=== PATIENT | female | born 1955 | race Caucasian/White ===

== ENCOUNTER 2018-02-08 19:28 | Emergency (ER) | payer OTHER ==
--- OUTSIDE RECORDS SUMMARY | 2018-02-08 19:31 | XMS REPORT | Continuity of Care Document ---
:1955 Author Organization Interface Problems Problem Status Onset Date Classification Date Comments Source Reported Medications Medication Details Route Status Patient Ordering Order Source Instructions Provider Date Allergies, Adverse Reactions, Alerts Substance Category Reaction Severity Reaction Status Date Comments Source type Reported Immunizations Immunization Date Given Site Status Last Updated Comments Source Results Order Results Value Reference Date Interpretation Comments Source Name Range Vital Signs Vital Sign Value Date Comments Source Encounters Location Location Encounter Encounter Reason Attending ADM DC Status Source Details Type Number For Provider Date Date Visit Outpatient [id number] JOSUÉ 04/02 [facility] [place] Outpatient [id number] JOSUÉ 05/14 [facility] [place] Outpatient [id number] JOSUÉ 05/14 [facility] [place] Procedures Procedure Code Date Perfomer Comments Source
[2018-02-08 20:12] LABS: Urine Blood TRACE (NEG); Urine Glucose TRACE (NEG); Urine Protein 3+ (NEG); Urine Specific Gravity >1.030 (1.005-1.030); Urine pH 5.5 (5.0-7.0)
[2018-02-08] MEDS ORDERED: KETOROLAC 30 MG/ML INJ ONE (20:53)
[2018-02-08 21:04] LABS: Absolute Lymphocytes (CBC) 1.6 K/uL (0.7-4.9); Absolute Monocytes 0.4 K/uL (0.1-1.3); Absolute Neutrophil 2.2 K/uL (1.8-8.0); Basophils % 0.6 % (0-1.3); Eosinophils % 1.6 % (0-4.4); Hematocrit 38.8 % (36.0-45.0); Lymphocytes % 37.8 % (15.3-44.8); MCH 29.4 pg (27.0-35.0); MCV 85.1 fL (80-100); MPV 9.1 fL (7.6-11.3); Monocytes % 8.9 % (3.3-12.3); RBC Red Blood Cell Count 4.55 M/uL (3.86-4.86)
[2018-02-08 21:29] LABS: Urine Bacteria <20 /HPF (<20); Urine Culture Reflex Order REFLEXED; Urine Mucus 1+ /HPF (NONE SEEN); Urine RBC <5 /HPF (NONE SEEN)
--- NOTE | 2018-02-08 21:54 | RAD REPORT ---
EXAM DESCRIPTION: CT - Stone Protocol - 02/08/2018 9:44 pm CLINICAL HISTORY: Abdominal pain. Urinary frequency since this morning COMPARISON: None. TECHNIQUE: Computed axial tomography of the abdomen pelvis was obtained without oral or IV contrast. Lack of IV and oral contrast limits evaluation of solid organs, bowel, and vessels. Coronal reformat jane images were obtained and reviewed. All CT scans are performed using dose optimization technique as appropriate and may include automated exposure control or mA/KV adjustment according to patient size. FINDINGS: A renal calculus is not seen. An ureteral calculus is not noted. A bladder calculus is not present. The liver, spleen, pancreas and adrenals appear grossly normal There is no evidence of diverticulitis. The appendix appears normal Gallstones are present. The gallbladder wall does not appear thickened A small umbilical hernia is present. IMPRESSION: Negative for a genitourinary calculus Cholelithiasis
[2018-02-08] MEDS ORDERED: CEFTRIAXONE/SWI 1gm 1 GM/10 ML SYR ONE (22:46)
[2018-02-08 23:17] LABS: ALT/SGPT 26 U/L (12-78); AST/SGOT 27 U/L (15-37); Alkaline Phosphatase 110 U/L (45-117); BUN Blood Urea Nitrogen 17 mg/dL (7-18); Bicarbonate 28 mmol/L (21-32); Bilirubin Direct < 0.1 mg/dL (0-0.2); Bilirubin Total 0.2 mg/dL (0.2-1.0); Glucose Level 218 mg/dL (74-106); Potassium 3.6 mmol/L (3.5-5.1); Sodium Level 144 mmol/L (136-145)
[2018-02-08 23:18] LABS: Albumin 3.4 g/dL (3.4-5.0); Amylase Level 39 U/L (25-115); Lipase 129 U/L (73-393); Protein, Total 6.9 g/dL (6.4-8.2)
--- NOTE | 2018-02-08 23:33 | ER ---
Nurse's Notes [facility] Name: Rachel Camacho Age: 63 yrs Sex: Female : 1955 Arrival Date: 02/08/2018 Time: 19:29 Bed 14 Private MD: Willie Voss Diagnosis: Urinary tract infection, site not specified Presentation: 02/08 19:41 Presenting complaint: Patient states: that she is having left lower back pain that bb started this am. Urinary frequency but no burning. Transition of care: patient was not received from another setting of care. Onset of symptoms was February 08, 2018. Risk Assessment: Do you want to hurt yourself or someone else? Patient reports no desire to harm self or others. Initial Sepsis Screen: Does the patient meet any 2 criteria? No. Patient's initial sepsis screen is negative. Does the patient have a suspected source of infection? No. Patient's initial sepsis screen is negative. Care prior to arrival: None. 19:41 Method Of Arrival: Ambulatory bb 19:41 Acuity: LUDY 3 bb Historical: - Allergies: 19:44 Codeine; bb 19:44 Hydrocodone-Acetaminophen; bb 19:44 Theophylline; bb 19:44 Tylenol-Codeine #3; bb - Home Meds: 19:44 atvorstatin 40mg at bedtime [Active]; fenofibrate 48 mg Oral 1 tab once daily [Active]; bb Lantus 30 units Sub-Q twice a day [Active]; lisinopril 10 mg Oral tab 1 tab once daily [Active]; Nexium 40 mg Oral cpDR 1 cap 2 times per day [Active]; Novolog 100 unit/mL Sub-Q soln as needed [Active]; aspirin 81 mg Oral chew 1 tab once daily [Active]; - PMHx: 19:44 Anxiety; GERD; Diabetes - IDDM; Hypertension; High Cholesterol; bb - PSHx: 19:44 left leg; Tubal ligation; bb - Immunization history:: Last tetanus immunization: up to date. - Social history:: Smoking status: Patient/guardian denies using tobacco, the patient reports quitting approximately 7 years ago. - Ebola Screening: : Patient negative for fever greater than or equal to 101.5 degrees Fahrenheit, and additional compatible Ebola Virus Disease symptoms Patient denies exposure to infectious person Patient denies travel to an Ebola-affected area in the 21 days before illness onset. Screenin:09 Abuse screen: Denies threats or abuse. Denies injuries from another. Nutritional mg2 screening: No deficits noted. Tuberculosis screening: No symptoms or risk factors identified. Fall Risk None identified. Assessment: 20:07 General: Appears uncomfortable, Behavior is calm, cooperative. Pain: Complains of pain mg2 in lower back Pain does not radiate. Pain currently is 10 out of 10 on a pain scale. Quality of pain is described as aching, Pain began today morning Is intermittent, Alleviated by. Neuro: Level of Consciousness is awake, alert, obeys commands, Oriented to person, place, time. Cardiovascular: Capillary refill < 3 seconds Patient's skin is warm and dry. Respiratory: Airway is patent Respiratory effort is even, unlabored. GI: No signs and/or symptoms were reported involving the gastrointestinal system. : Reports pain in lower back. EENT: No signs and/or symptoms were reported regarding the EENT system. Derm: No signs and/or symptoms reported regarding the dermatologic system. Derm: Skin is intact, Skin is pink, warm \T\ dry. normal. Musculoskeletal: No signs and/or symptoms reported regarding the musculoskeletal system. 22:47 Reassessment: Patient appears in no apparent distress at this time. Patient and/or mg2 family updated on plan of care and expected duration. Pain level reassessed. Patient is alert, oriented x 3, equal unlabored respirations, skin warm/dry/pink. Vital Signs: 19:44 BP 156 / 80; Pulse 93; Resp 18; Temp 97.9(O); Pulse Ox 95% on R/A; Weight 108.86 kg; bb Height 5 ft. 8 in. (172.72 cm); Pain 10/10; 20:56 BP 143 / 65; Pulse 90; Resp 18; Pulse Ox 100% ; Pain 8/10; mg2 22:13 BP 143 / 72; Pulse 73; Resp 18; Pulse Ox 100% on R/A; Pain 0/10; mg2 23:19 BP 139 / 67; Pulse 76; Resp 18; Pulse Ox 97% on R/A; Pain 0/10; mg2 19:44 Body Mass Index 36.49 (108.86 kg, 172.72 cm) bb ED Course: 19:29 Patient arrived in ED. ds1 19:30 Shanika, Willie, MD is Private Physician. ds1 19:42 Triage completed. bb 19:44 Arm band placed on Patient placed in an exam room, on a stretcher. bb 19:52 Morris Bañuelos MD is Attending Physician. tw4 19:57 Dwayne Sheth, JOCELINE is Primary Nurse. mg2 20:09 Patient has correct armband on for positive identification. mg2 20:43 No provider procedures requiring assistance completed. Inserted saline lock: 20 gauge mg2 in right forearm, using aseptic technique. Blood collected. 21:[address] nj 21:43 CT completed. Patient tolerated procedure well. Patient moved back from CT. nj 21:43 CT Stone Protocol In Process Unspecified. EDMS 23:31 Willie Voss MD is Referral Physician. tw4 02/09 00:04 IV discontinued, intact, bleeding controlled, No redness/swelling at site. Pressure mg2 dressing applied. Administered Medications: 02/08 20:55 Drug: TORadol 30 mg Route: IVP; Site: right forearm; mg2 22:27 Follow up: Response: No adverse reaction; Pain is decreased mg2 22:47 Drug: Rocephin - (cefTRIAXone) 1 grams Route: IVPB; Infused Over: 30 mins; Site: right mg2 forearm; Outcome: 23:32 Discharge ordered by . tw4 02/09 00:04 Discharged to home ambulatory. mg2 Condition: stable Discharge instructions given to patient, Instructed on discharge instructions, follow up and referral plans. medication usage, Demonstrated understanding of instructions, follow-up care, medications, Prescriptions given X 1. 00:05 Patient left the ED. mg2 Signatures: Dispatcher [facility] GastonGregoryi ds1 Rachel Talbot, RN RN Matti Hedrick Terrence, MD MD tw4 Dwayne Sheth, RN RN mg2 Corrections: (The following items were deleted from the chart) 02/08 22:27 22:13 Pulse 73bpm; Resp 18bpm; Pulse Ox 100% RA; Pain 0/10; mg2 mg2
--- NOTE | 2018-02-08 23:33 | EDPHYS ---
Physician Documentation [facility] Name: Rachel Camacho Age: 63 yrs Sex: Female : 1955 Arrival Date: 02/08/2018 Time: 19:29 Bed 14 Private MD: Willie Voss ED Physician Morris Bañuelos HPI: 02/08 21:29 This 63 yrs old Female presents to ER via Ambulatory with complaints of tw4 Kidney Pain. 21:29 The patient complains of pain in the left low back. The pain does not radiate. Onset: tw4 The symptoms/episode began/occurred yesterday. Modifying factors: The symptoms are alleviated by nothing. the symptoms are aggravated by movement. Associated signs and symptoms: The patient has no apparent associated signs or symptoms. Severity of pain: At its worst the pain was moderate in the emergency department the pain is unchanged. The patient has not experienced similar symptoms in the past. Historical: - Allergies: 19:44 Codeine; bb 19:44 Hydrocodone-Acetaminophen; bb 19:44 Theophylline; bb 19:44 Tylenol-Codeine #3; bb - Home Meds: 19:44 atvorstatin 40mg at bedtime [Active]; fenofibrate 48 mg Oral 1 tab once daily [Active]; bb Lantus 30 units Sub-Q twice a day [Active]; lisinopril 10 mg Oral tab 1 tab once daily [Active]; Nexium 40 mg Oral cpDR 1 cap 2 times per day [Active]; Novolog 100 unit/mL Sub-Q soln as needed [Active]; aspirin 81 mg Oral chew 1 tab once daily [Active]; - PMHx: 19:44 Anxiety; GERD; Diabetes - IDDM; Hypertension; High Cholesterol; bb - PSHx: 19:44 left leg; Tubal ligation; bb - Immunization history:: Last tetanus immunization: up to date. - Social history:: Smoking status: Patient/guardian denies using tobacco, the patient reports quitting approximately 7 years ago. - Ebola Screening: : Patient negative for fever greater than or equal to 101.5 degrees Fahrenheit, and additional compatible Ebola Virus Disease symptoms Patient denies exposure to infectious person Patient denies travel to an Ebola-affected area in the 21 days before illness onset. ROS: 21:31 Constitutional: Negative for fever, chills, and weight loss. tw4 21:31 : Positive for flank pain, Negative for urinary symptoms, urinary frequency, burning with urination, difficulty urinating, bladder incontinence, foul smelling urine, vaginal bleeding, vaginal discharge, vaginal itching. Exam: 21:31 Constitutional: This is a well developed, well nourished patient who is awake, alert, tw4 and in no acute distress. Head/Face: Normocephalic, atraumatic. Chest/axilla: Normal chest wall appearance and motion. Nontender with no deformity. No lesions are appreciated. Cardiovascular: Regular rate and rhythm with a normal S1 and S2. No gallops, murmurs, or rubs. Normal PMI, no JVD. No pulse deficits. Respiratory: Lungs have equal breath sounds bilaterally, clear to auscultation and percussion. No rales, rhonchi or wheezes noted. No increased work of breathing, no retractions or nasal flaring. Abdomen/GI: Soft, non-tender, with normal bowel sounds. No distension or tympany. No guarding or rebound. No evidence of tenderness throughout. 21:31 Back: pain, that is moderate, ROM is normal, normal spinal alignment noted, CVA tenderness, is noted on the left, vertebral tenderness. Vital Signs: 19:44 BP 156 / 80; Pulse 93; Resp 18; Temp 97.9(O); Pulse Ox 95% on R/A; Weight 108.86 kg; bb Height 5 ft. 8 in. (172.72 cm); Pain 10/10; 20:56 BP 143 / 65; Pulse 90; Resp 18; Pulse Ox 100% ; Pain 8/10; mg2 22:13 BP 143 / 72; Pulse 73; Resp 18; Pulse Ox 100% on R/A; Pain 0/10; mg2 23:19 BP 139 / 67; Pulse 76; Resp 18; Pulse Ox 97% on R/A; Pain 0/10; mg2 19:44 Body Mass Index 36.49 (108.86 kg, 172.72 cm) bb MDM: 19:52 Patient medically screened. tw4 21:31 Differential diagnosis: nephrolithiasis, pyelonephritis, UTI. Data reviewed: vital tw4 signs, nurses notes. Counseling: I had a detailed discussion with the patient and/or guardian regarding: the historical points, exam findings, and any diagnostic results supporting the discharge/admit diagnosis, lab results. 23:31 Special discussion: I discussed with the patient/guardian in detail that at this point tw4 there is no indication for admission to the hospital. It is understood, however, that if the symptoms persist or worsen the patient needs to return immediately for re-evaluation. 02/08 20:08 Order name: Urine Dipstick--Ancillary (enter results); Complete Time: 20:29 in 02/08 22:38 Interpretation: Normal except: USPGR >1.030; UPROT 3+; UBLD TRACE; UESTR TRACE. [facility] 02/08 20:29 Order name: Amylase, Serum [facility] 02/08 20:29 Order name: Basic Metabolic Panel [facility] 02/08 20:29 Order name: CBC with Diff; Complete Time: 21:08 [facility] 02/08 22:38 Interpretation: Within normal limits. [facility] 02/08 20:29 Order name: Creatinine for Radiology; Complete Time: 22:37 [facility] 02/08 22:38 Interpretation: Within normal limits: CRE 0.60; GFR > 60. [facility] 02/08 20:29 Order name: Hepatic Function [facility] 02/08 20:29 Order name: Lipase [facility] 02/08 20:29 Order name: Urine Microscopic Only; Complete Time: 22:37 [facility] 02/08 22:38 Interpretation: Normal except: SQEPI 5-10; UWBC 10-20. [facility] 02/08 20:29 Order name: IV Saline Lock; Complete Time: 20:44 [facility] 02/08 20:29 Order name: Labs collected and sent; Complete Time: 20:44 [facility] 02/08 21:09 Order name: CT Stone Protocol; Complete Time: 22:37 [facility] 02/08 21:31 Order name: Urine Culture [facility] 02/08 20:29 Order name: Urine Dipstick-Ancillary (obtain specimen); Complete Time: 20:46 tw4 Administered Medications: 20:55 Drug: TORadol 30 mg Route: IVP; Site: right forearm; mg2 22:27 Follow up: Response: No adverse reaction; Pain is decreased mg2 22:47 Drug: Rocephin - (cefTRIAXone) 1 grams Route: IVPB; Infused Over: 30 mins; Site: right mg2 forearm; Disposition: 02/08/18 23:32 Discharged to Home. Impression: Urinary tract infection, site not specified. - Condition is Stable. - Discharge Instructions: Urinary Tract Infection, Urinary Tract Infection, [id number]. - Prescriptions for Macrobid 100 mg Oral Capsule - take 1 capsule by ORAL route every 12 hours for 10 days; 20 capsule. - Medication Reconciliation Form, Thank You Letter, Antibiotic Education, Prescription Opioid Use form. - Follow up: Willie Voss MD; When: As needed; Reason: Recheck today's complaints, Re-evaluation by your physician. Follow up: Private Physician; When: As needed; Reason: Recheck today's complaints, Re-evaluation by your physician. - Problem is new. - Symptoms have improved. Signatures: Dispatcher [employer] Rachel Austin, RN RN Morris Huston MD MD tw4 Dwayne Sheth RN RN mg2 Corrections: (The following items were deleted from the chart) 02/09 00:05 02/08 23:32 02/08/2018 23:32 Discharged to Home. Impression: Urinary tract infection, mg2 site not specified. Condition is Stable. Forms are Medication Reconciliation Form, Thank You Letter, Antibiotic Education, Prescription Opioid Use. Follow up: Willie Voss; When: As needed; Reason: Recheck today's complaints, Re-evaluation by your physician. Follow up: Private Physician; When: As needed; Reason: Recheck today's complaints, Re-evaluation by your physician. Problem is new. Symptoms have improved. tw4
== END 2018-02-09 00:05 | disposition home or self-care (01) ==
LOC: ER 19:28
DX: N39.0 Urinary tract infection, site not specified (principal); I10 Essential (primary) hypertension; E11.9 Type 2 diabetes mellitus without complications; F41.9 Anxiety disorder, unspecified; Z79.4 Long term (current) use of insulin; Z88.5 Allergy status to narcotic agent; Z88.6 Allergy status to analgesic agent; Z88.8 Allergy status to other drugs, medicaments and biological substances
CPT/HCPCS: 36415; 74176; 76377; 80048; 80076; 81003; 81015; 82150; 83690; 85025; 87086; 87088; 96374; 96375; 99284; J0696

== ENCOUNTER 2018-04-11 05:16 | Emergency (ER) | payer OTHER ==
--- OUTSIDE RECORDS SUMMARY | 2018-04-11 05:18 | XMS REPORT | Continuity of Care Document ---
[...] Number For Provider Date Date Visit Outpatient [id number] JOSUÉ 04/02 [facility] Outpatient [id number] JOSUÉ 05/14 [facility] Outpatient [id number] JOSUÉ 05/14 [facility] Procedures Procedure Code Date Perfomer Comments Source
[2018-04-11] MEDS ORDERED: ONDANSETRON 4 MG/2 ML VIAL ONE ×2 (05:53→12:34)
[2018-04-11 05:55] LABS: Absolute Lymphocytes (CBC) 0.5 K/uL (0.7-4.9); Absolute Monocytes 0.3 K/uL (0.1-1.3); Absolute Neutrophil 7.1 K/uL (1.8-8.0); Basophils % 0.3 % (0-1.3); Eosinophils % 0.1 % (0-4.4); Hematocrit 40.4 % (36.0-45.0); Lymphocytes % 6.7 % (15.3-44.8); MCH 28.8 pg (27.0-35.0); MCV 85.6 fL (80-100); MPV 9.2 fL (7.6-11.3); Monocytes % 4.4 % (3.3-12.3); RBC Red Blood Cell Count 4.72 M/uL (3.86-4.86)
[2018-04-11 05:59] LABS: Protime INR 0.97
[2018-04-11] MEDS ORDERED: ASPIRIN 81 MG CHEWABLE TABLET ONE (06:04)
[2018-04-11] MEDS ORDERED: NITROGLYCERIN 0.4 MG/TAB SL ONE (06:05)
[2018-04-11 06:26] LABS: ALT/SGPT 27 U/L (12-78); AST/SGOT 24 U/L (15-37); Albumin 3.9 g/dL (3.4-5.0); Alkaline Phosphatase 86 U/L (45-117); BUN Blood Urea Nitrogen 19 mg/dL (7-18); Bicarbonate 27 mmol/L (21-32); Bilirubin Direct < 0.1 mg/dL (0-0.2); Bilirubin Total 0.4 mg/dL (0.2-1.0); CKMB Creatine Kinase MB 5.1 ng/mL (0.3-3.6); Creatine Phosphokinase 176 U/L (26-192); Glucose Level 239 mg/dL (74-106); Magnesium 1.9 mg/dL (1.8-2.4); NT PRO-BNP 36 pg/mL (<125); Potassium 3.9 mmol/L (3.5-5.1); Protein, Total 7.8 g/dL (6.4-8.2); Sodium Level 138 mmol/L (136-145); Troponin (Emerg Dept Use Only) < 0.02 ng/mL (0.0-0.045)
[2018-04-11 06:27] LABS: Blood Morphology Comment NOT SEEN (NOT SEEN); Platelet Estimate ADEQ
[2018-04-11] MEDS ORDERED: PROMETHAZINE 25 MG/ML VIAL ONE ×2 (06:40→07:29)
[2018-04-11] MEDS ORDERED: KETOROLAC 30 MG/ML INJ ONE (06:40)
[2018-04-11] MEDS ORDERED: NA CHLORIDE 0.9% 1,000 ML ONE (06:40)
--- NOTE | 2018-04-11 07:34 | RAD REPORT ---
EXAM DESCRIPTION: CT - Abdomen Pelvis W Contrast - 04/11/2018 7:19 am CLINICAL HISTORY: EPIGASTRIC PAIN abdominal pain COMPARISON: Stone Protocol dated 02/08/2018 TECHNIQUE: Computed axial tomography of the abdomen pelvis was obtained. 100 cc Isovue-300 was admin istered intravenously. Oral contrast was not requested which limits evaluation of bowel. All CT scans are performed using dose optimization technique as appropriate and may include automated exposure control or mA/KV adjustment according to patient size. FINDINGS: Small hepatic cyst is present. Multiple gallstones are present. The gallbladder is mildly distended. The wall probably is not thicke melquiades. Spleen, pancreas, adrenal and kidneys appear unremarkable. There is no evidence of diverticulitis. The appendix is not clearly seen. Small umbilical hernia is present. IMPRESSION: Cholelithiasis with mild gallbladder distention
--- NOTE | 2018-04-11 08:36 | EKG ---
Test Date: 2018-04-11 Test Time: 05:25:41 Shank Sorter: BRANDON MEASUREMENT RESULTS: Intervals: Rate: 68 HI: 162 QRSD: 86 QT: 416 QTc: 442 [place]: P: 49 HI: 162 QRS: 46 T: 55 INTERPRETIVE STATEMENTS: Normal sinus rhythm Normal ECG Compared to ECG 09/18/2016 07:32:19 No significant changes Electronically Signed On 04-11-18 08:36:15 CDT by Dylon Law
--- NOTE | 2018-04-11 09:40 | RAD REPORT ---
EXAM DESCRIPTION: Gerardt Single View04/11/2018 5:47 am CLINICAL HISTORY: CHEST PAIN COMPARISON: Chest Pa And Lat (2 Views) dated 09/18/2016; delete FINDINGS: The lungs appear clear of acute infiltrate. The heart is normal size IMPRESSION: No acute abnormalities displayed
--- NOTE | 2018-04-11 10:23 | RAD REPORT ---
EXAM DESCRIPTION: US - Abdomen Exam Limited - 04/11/2018 8:40 am CLINICAL HISTORY: EPIGASTRIC PAIN COMPARISON: None. FINDINGS: Gallstones are present. The gallbladder wall is mildly thickened measuring 4 millimeters. The common bile duct 7 millimeter . IMPRESSION: Cholelithiasis. Mild thickened gallbladder wall may indicate cholecystitis Mild dilatation of the common bile duct.
--- NOTE | 2018-04-11 10:33 | ER ---
Nurse's Notes [facility] Name: Rachel Camacho Age: 63 yrs Sex: Female : 1955 Arrival Date: 04/11/2018 Time: 05:17 Bed 14 Private MD: Willie Voss Diagnosis: Cholecystitis Presentation: 04/11 05:36 Presenting complaint: Patient states: Pt complaining of stomach pain that began at 10 ea PM, pt reports the pain gradually started moving up to her epigastric area. Reports she has been having vomiting and Diarrhea. Pt report the epigastric pain radiates to the center of her chest. Transition of care: patient was not received from another setting of care. Onset of symptoms was April 11, 2018. Risk Assessment: Do you want to hurt yourself or someone else? Patient reports no desire to harm self or others. Initial Sepsis Screen: Does the patient meet any 2 criteria? No. Patient's initial sepsis screen is negative. Does the patient have a suspected source of infection? No. Patient's initial sepsis screen is negative. Care prior to arrival: Medication(s) given: Pepto-Bismol at 11 PM. 05:36 Method Of Arrival: Ambulatory ea 05:36 Acuity: LUDY 3 ea Triage Assessment: 05:41 General: Appears uncomfortable, Behavior is calm, cooperative, appropriate for age. ea Pain: Complains of pain in epigastric area Pain radiates to chest Pain currently is 7 out of 10 on a pain scale. Quality of pain is described as burning, aching, Pain began suddenly, Is continuous. EENT: No signs and/or symptoms were reported regarding the EENT system. Neuro: Level of Consciousness is awake, alert, obeys commands, Oriented to person, place, time, situation. Cardiovascular: Patient's skin is warm and dry. Respiratory: Airway is patent Respiratory effort is even, unlabored, Respiratory pattern is regular, symmetrical. GI: Abdomen is non-distended, Bowel sounds present X 4 quads. GI: Reports diarrhea, vomiting. : No signs and/or symptoms were reported regarding the genitourinary system. Derm: Skin is pink, warm \\T\\ dry. Historical: - Allergies: 05:40 Codeine; ea 05:40 Theophylline; ea 05:40 Tylenol-Codeine #3; ea 05:40 Hydrocodone-Acetaminophen; ea - Home Meds: 05:40 fenofibrate 48 mg Oral 1 tab once daily [Active]; atvorstatin 40mg at bedtime [Active]; ea Lantus 30 units Sub-Q twice a day [Active]; aspirin 81 mg Oral chew 1 tab once daily [Active]; lisinopril 10 mg Oral tab 1 tab once daily [Active]; Nexium 40 mg Oral cpDR 1 cap 2 times per day [Active]; Novolog 100 unit/mL Sub-Q soln as needed [Active]; - PMHx: 05:40 Anxiety; Diabetes - IDDM; GERD; High Cholesterol; Hypertension; ea - PSHx: 05:40 left leg; Tubal ligation; ea - Immunization history:: Adult Immunizations up to date. - Social history:: Smoking status: Patient/guardian denies using tobacco, the patient reports quitting approximately 8 years ago. - Ebola Screening: : No symptoms or risks identified at this time. Screenin:40 Abuse screen: Denies threats or abuse. Nutritional screening: No deficits noted. ea Tuberculosis screening: No symptoms or risk factors identified. Fall Risk None identified. Assessment: 05:44 Reassessment: see triage assessment. ea 06:44 Reassessment: Patient and/or family updated on plan of care and expected duration. Pain ea level reassessed. Patient is alert, oriented x 3, equal unlabored respirations, skin warm/dry/pink. Pt reported nausea and vomiting x 1. Provider notified, medication order obtained, medication administered, pt tolerated well. 07:00 General: Appears in no apparent distress. uncomfortable, Behavior is calm, cooperative, hj appropriate for age. Pain: Complains of pain in abdomen. Neuro: Level of Consciousness is awake, alert, obeys commands, Oriented to person, place, time, situation, Appropriate for age. Cardiovascular: Capillary refill < 3 seconds Patient's skin is warm and dry. Respiratory: Airway is patent Respiratory effort is even, unlabored, Respiratory pattern is regular, symmetrical. GI: Abdomen is non-distended, obese, Pt is actively vomiting. : No signs and/or symptoms were reported regarding the genitourinary system. EENT: No signs and/or symptoms were reported regarding the EENT system. Derm: No signs and/or symptoms reported regarding the dermatologic system. Musculoskeletal: No signs and/or symptoms reported regarding the musculoskeletal system. 08:00 Reassessment: Patient and/or family updated on plan of care and expected duration. Pain hj level reassessed. Patient is alert, oriented x 3, equal unlabored respirations, skin warm/dry/pink. awaiting results and POC:. 09:00 Reassessment: Patient and/or family updated on plan of care and expected duration. Pain hj level reassessed. Patient is alert, oriented x 3, equal unlabored respirations, skin warm/dry/pink. " istill hurt". provider informed;. 10:46 Reassessment: Patient and/or family updated on plan of care and expected duration. Pain hj level reassessed. Patient is alert, oriented x 3, equal unlabored respirations, skin warm/dry/pink. possible admit; provider in room for POC:. 11:04 Reassessment: pt states" i want to go to [place] if i need to be transferred, nothing hj farther than that". provider informed;. 11:25 Reassessment: pt changed her mind, states" okay, you can transfer me to the [facility]". 11:48 Reassessment: awaiting transfer papers;. hj 12:00 Reassessment: report given to Zhanna Salazar RN; to room 2134;. Vital Signs: 05:35 BP 153 / 86; Pulse 76; Resp 18; Temp 97.7(O); Pulse Ox 98% on R/A; Weight 108.86 kg; ea Height 5 ft. 8 in. (172.72 cm); Pain 7/10; 06:48 BP 149 / 77; Pulse 70; Resp 18; Pulse Ox 97% on R/A; Pain 7/10; ea 07:27 BP 143 / 77; Pulse 95; Resp 18; Temp 98.1(TE); Pulse Ox 99% on R/A; Pain 8/10; hj 08:30 BP 142 / 75; Pulse 94; Resp 18; Pulse Ox 98% on 2 lpm NC; hj 09:30 BP 140 / 76; Pulse 85; Resp 18; Pulse Ox 100% on 2 lpm NC; hj 10:47 BP 140 / 72; Pulse 89; Resp 18; Pulse Ox 100% on 2 lpm NC; hj 11:48 BP 132 / 61; Pulse 80; Resp 18; Pulse Ox 99% on R/A; hj 05:35 Body Mass Index 36.49 (108.86 kg, 172.72 cm) ea ED Course: 05:17 Patient arrived in ED. ds1 05:17 Willie Voss MD is Private Physician. ds1 05:18 Josefa Mitchell, JOCELINE is Primary Nurse. ea 05:35 Patient has correct armband on for positive identification. Bed in low position. Call ea light in reach. Side rails up X2. 05:35 Patient placed in an exam room, on a stretcher, on pulse oximetry. ea 05:38 Triage completed. ea 05:38 Inserted saline lock: 20 gauge in right antecubital area, using aseptic technique. ea Blood collected. 05:42 X-ray completed. Portable x-ray completed in exam room. Patient tolerated procedure kp1 well. 05:47 XRAY Chest (1 view) In Process Unspecified. EDMS 06:02 German Andino NP is PHCP. pm1 06:02 Morris Bañuelos MD is Attending Physician. pm1 07:01 Report received from JOCELINE Rivero. hj 07:[address] kw1 07:[address] kw1 07:11 CT completed. Patient moved back from CT. cw1 07:19 CT Abd/Pelvis - W/Contrast In Process Unspecified. EDMS 08:38 Ultrasound completed. Patient tolerated well. sg3 08:40 US Abdomen Limited In Process Unspecified. EDMS 10:32 Mavis Kauffman MD is Hospitalizing Provider. pm1 11:17 initiated a transfer with Garrick at the [facility] transfer Center. eb 11:27 connected the GI doctor from [facility] with Thu SINGH for patient transfer eb consultation. 11:41 administrative approval given by Risa Elizabeth/ Dr. Holland has accepted the eb patient in transfer/ patient going to bed 2018/ Report to be called to [phone]. 12:24 No provider procedures requiring assistance completed. Patient transferred, IV remains hj in place. intact. Administered Medications: 05:53 Drug: Zofran 4 mg Route: IVP; Site: right antecubital; ea 06:43 Follow up: Response: No adverse reaction; Nausea unchanged ea 06:04 Drug: Aspirin Chewable Tablet 324 mg Route: PO; ea 06:43 Follow up: Response: No adverse reaction ea 06:04 Not Given (Patient Refused): Nitroglycerin 0.4 mg Sublingual once ea 06:42 Drug: TORadol 30 mg Route: IVP; Site: right antecubital; ea 07:00 Follow up: Response: No adverse reaction; Pain is decreased ea 06:42 Drug: Phenergan 12.5 mg Route: IVP; Site: right antecubital; ea 07:00 Follow up: Response: No adverse reaction; Nausea is decreased ea 06:42 Drug: NS 0.9% 1000 ml Route: IV; Rate: 1000 ml; Site: right antecubital; ea 08:30 Follow up: IV Status: Completed infusion; IV Intake: 1000ml hj 07:27 Drug: Phenergan 12.5 mg Route: IVP; Site: right antecubital; hj 07:48 Follow up: Response: No adverse reaction; Nausea is decreased hj 11:36 Drug: Zosyn 3.375 grams Route: IVPB; Infused Over: 60 mins; Site: right antecubital; hj 11:51 Follow up: IV Status: Completed infusion hj 12:28 Drug: morphine 2 mg Route: IVP; Site: right antecubital; hj 12:33 Follow up: Response: No adverse reaction hj 12:28 Drug: Zofran 4 mg Route: IVP; Site: right antecubital; hj 12:33 Follow up: Response: No adverse reaction; Nausea is decreased hj Intake: 08:30 IV: 1000ml; Total: 1000ml. hj Outcome: 10:33 Decision to Hospitalize by Provider. pm1 11:37 ER care complete, transfer ordered by MD. pm1 12:24 Transferred by ground EMS to [facility], Transfer form completed. hj X-rays sent w/ patient. 12:24 Condition: stable 12:24 Instructed on the need for transfer, Demonstrated understanding of instructions. 12:34 Patient left the ED. hj Signatures: Dispatcher [employer] EDKS Yakelin Gaston dsEsther Bishop cw1 Rod Jacobsen RN RN hj Marinas, Patrick, SAMANTHA EXTRACTOR OPERATOR pm1 Mitali Dubois kp1 Mitchell, JosefaJOCELINE RN, ea, Kimberly kw1 Gloria Lebron sg3 Valorie Mondragon Corrections: (The following items were deleted from the chart) 07:03 07:01 Report received from JOCELINE Velasco ea hj
--- NOTE | 2018-04-11 10:33 | EDPHYS ---
Physician Documentation [facility] Name: Rachel Camacho Age: 63 yrs Sex: Female : 1955 Arrival Date: 04/11/2018 Time: 05:17 Bed 14 Private MD: Willie Voss ED Physician Morris Bañuelos HPI: 04/11 06:17 This 63 yrs old Female presents to ER via Ambulatory with complaints of pm1 Epigastric Pain, Chest Pain. 06:17 The patient presents with abdominal pain in the upper abdomen. Onset: The pm1 symptoms/episode began/occurred last night, at 22:00. The symptoms radiate to left breast. Associated signs and symptoms: Pertinent positives: nausea, vomiting, and diarrhea, Pertinent negatives: dysuria, fever, shortness of breath. The symptoms are described as achy. Modifying factors: The symptoms are alleviated by Positioning. the symptoms are aggravated by nothing. Severity of pain: in the emergency department the pain is actually worse. The patient has not experienced similar symptoms in the past. The patient has not recently seen a physician, the patient's primary care provider is Dr. Worrell. Historical: - Allergies: 05:40 Codeine; ea 05:40 Theophylline; ea 05:40 Tylenol-Codeine #3; ea 05:40 Hydrocodone-Acetaminophen; ea - Home Meds: 05:40 fenofibrate 48 mg Oral 1 tab once daily [Active]; atvorstatin 40mg at bedtime [Active]; ea Lantus 30 units Sub-Q twice a day [Active]; aspirin 81 mg Oral chew 1 tab once daily [Active]; lisinopril 10 mg Oral tab 1 tab once daily [Active]; Nexium 40 mg Oral cpDR 1 cap 2 times per day [Active]; Novolog 100 unit/mL Sub-Q soln as needed [Active]; - PMHx: 05:40 Anxiety; Diabetes - IDDM; GERD; High Cholesterol; Hypertension; ea - PSHx: 05:40 left leg; Tubal ligation; ea - Immunization history:: Adult Immunizations up to date. - Social history:: Smoking status: Patient/guardian denies using tobacco, the patient reports quitting approximately 8 years ago. - Ebola Screening: : No symptoms or risks identified at this time. ROS: 06:20 Constitutional: Negative for fever, chills, and weight loss, Eyes: Negative for injury, pm1 pain, redness, and discharge, ENT: Negative for injury, pain, and discharge, Neck: Negative for injury, pain, and swelling, Cardiovascular: Negative for chest pain, palpitations, and edema, Respiratory: Negative for shortness of breath, cough, wheezing, and pleuritic chest pain. 06:20 Back: Negative for injury and pain, : Negative for injury, bleeding, discharge, and swelling, MS/Extremity: Negative for injury and deformity, Skin: Negative for injury, rash, and discoloration, Neuro: Negative for headache, weakness, numbness, tingling, and seizure. 06:20 Abdomen/GI: Positive for abdominal pain, nausea, vomiting, and diarrhea, of the epigastric area, right upper quadrant and left upper quadrant, Negative for hematemesis, black/tarry stool, rectal pain, rectal bleeding. Exam: 06:20 Constitutional: This is a well developed, well nourished patient who is awake, alert, pm1 and in no acute distress. Head/Face: Normocephalic, atraumatic. Eyes: Pupils equal round and reactive to light, extra-ocular motions intact. Lids and lashes normal. Conjunctiva and sclera are non-icteric and not injected. Cornea within normal limits. Periorbital areas with no swelling, redness, or edema. ENT: Nares patent. No nasal discharge, no septal abnormalities noted. Tympanic membranes are normal and external auditory canals are clear. Oropharynx with no redness, swelling, or masses, exudates, or evidence of obstruction, uvula midline. Mucous membranes moist. Neck: Trachea midline, no thyromegaly or masses palpated, and no cervical lymphadenopathy. Supple, full range of motion without nuchal rigidity, or vertebral point tenderness. No Meningismus. Chest/axilla: Normal chest wall appearance and motion. Nontender with no deformity. No lesions are appreciated. Cardiovascular: Regular rate and rhythm with a normal S1 and S2. No gallops, murmurs, or rubs. Normal PMI, no JVD. No pulse deficits. Respiratory: Lungs have equal breath sounds bilaterally, clear to auscultation and percussion. No rales, rhonchi or wheezes noted. No increased work of breathing, no retractions or nasal flaring. 06:20 Back: No spinal tenderness. No costovertebral tenderness. Full range of motion. Skin: Warm, dry with normal turgor. Normal color with no rashes, no lesions, and no evidence of cellulitis. MS/ Extremity: Pulses equal, no cyanosis. Neurovascular intact. Full, normal range of motion. 06:20 Abdomen/GI: Inspection: abdomen appears normal, Bowel sounds: normal, Palpation: soft, mild abdominal tenderness, in the epigastric area, right upper quadrant and left upper quadrant, mass, is not appreciated, rebound tenderness, is not appreciated. 06:20 Neuro: Orientation: is normal, Motor: moves all fours. Vital Signs: 05:35 BP 153 / 86; Pulse 76; Resp 18; Temp 97.7(O); Pulse Ox 98% on R/A; Weight 108.86 kg; ea Height 5 ft. 8 in. (172.72 cm); Pain 7/10; 06:48 BP 149 / 77; Pulse 70; Resp 18; Pulse Ox 97% on R/A; Pain 7/10; ea 07:27 BP 143 / 77; Pulse 95; Resp 18; Temp 98.1(TE); Pulse Ox 99% on R/A; Pain 8/10; hj 08:30 BP 142 / 75; Pulse 94; Resp 18; Pulse Ox 98% on 2 lpm NC; hj 09:30 BP 140 / 76; Pulse 85; Resp 18; Pulse Ox 100% on 2 lpm NC; hj 10:47 BP 140 / 72; Pulse 89; Resp 18; Pulse Ox 100% on 2 lpm NC; hj 11:48 BP 132 / 61; Pulse 80; Resp 18; Pulse Ox 99% on R/A; hj 05:35 Body Mass Index 36.49 (108.86 kg, 172.72 cm) ea MDM: 05:47 Patient medically screened. tw4 06:25 ED course: CT ordered due to unavailability of U/S in AM. pm1 08:03 Data reviewed: vital signs. Data interpreted: Pulse oximetry: on room air is 99 %. pm1 Interpretation: normal. 10:17 ED course: Patient offered pain medications, narcotics, multiple times and patient pm1 refused. Patient wants to be fully alert due to having a mother at home that is on hospice with dementia . 10:30 Counseling: I had a detailed discussion with the patient and/or guardian regarding: the pm1 historical points, exam findings, and any diagnostic results supporting the discharge/admit diagnosis, lab results, radiology results, the need for further work-up and treatment in the hospital. 10:35 Physician consultation: Mavis Kauffman MD was called at 10:35, was contacted at 10:35, pm1 regarding admission, patient's condition, after a discussion of the case, a recommendation for transfer for higher level of care is made, due to lack of oncall GI. 10:54 Physician consultation: Gavin Alonso MD was called at 10:55, was contacted at 10:55, pm1 regarding patient's condition, Requests transfer for GI and MRI capability. 11:30 Physician consultation: [facility] was contacted at 11:30, regarding pm1 consult, patient's condition, Will see patient due to request to me by Dr. Alonso to transfer patient for MRI and GI services. 11:35 Physician consultation: Hospitalist [facility] was contacted at 11:35, pm1 regarding regarding transfer, patient's condition, and will see patient would like medications started, IV antibiotics. 04/11 05:25 Order name: Basic Metabolic Panel; Complete Time: 06:29 04/11 05:25 Order name: CBC with Diff; Complete Time: 06:29 04/11 05:25 Order name: Ckmb; Complete Time: 06:29 04/11 05:25 Order name: CPK; Complete Time: 06:29 04/11 05:25 Order name: LFT's; Complete Time: 06:29 04/11 05:25 Order name: Magnesium; Complete Time: 06:29 04/11 05:25 Order name: NT PRO-BNP; Complete Time: 06:29 04/11 05:25 Order name: PT-INR; Complete Time: 06:13 04/11 05:25 Order name: Ptt, Activated; Complete Time: 06:13 04/11 05:25 Order name: Troponin (emerg Dept Use Only); Complete Time: 06:29 04/11 05:25 Order name: XRAY Chest (1 view); Complete Time: 10:04 04/11 06:07 Order name: Manual Differential; Complete Time: 06:29 EDMS 04/11 07:59 Order name: Lipase; Complete Time: 08:59 pm1 04/11 11:32 Order name: Urine Dipstick--Ancillary (enter results); Complete Time: 11:42 eb 04/11 05:25 Order name: EKG; Complete Time: 05:26 tw4 04/11 05:25 Order name: Cardiac monitoring; Complete Time: 05:45 tw4 04/11 05:25 Order name: EKG - Nurse/Tech; Complete Time: 05:45 tw4 04/11 05:25 Order name: IV Saline Lock; Complete Time: 05:45 tw4 04/11 06:23 Order name: CT Abd/Pelvis - W/Contrast; Complete Time: 07:43 pm1 04/11 07:53 Order name: US Abdomen Limited; Complete Time: 10:26 pm1 04/11 05:25 Order name: Labs collected and sent; Complete Time: 05:45 tw4 04/11 05:25 Order name: O2 Per Protocol; Complete Time: 05:45 tw4 04/11 05:25 Order name: O2 Sat Monitoring; Complete Time: 05:45 tw4 04/11 05:25 Order name: Urine Dipstick-Ancillary (obtain specimen); Complete Time: 12:15 tw4 Administered Medications: 05:53 Drug: Zofran 4 mg Route: IVP; Site: right antecubital; ea 06:43 Follow up: Response: No adverse reaction; Nausea unchanged ea 06:04 Drug: Aspirin Chewable Tablet 324 mg Route: PO; ea 06:43 Follow up: Response: No adverse reaction ea 06:04 Not Given (Patient Refused): Nitroglycerin 0.4 mg Sublingual once ea 06:42 Drug: TORadol 30 mg Route: IVP; Site: right antecubital; ea 07:00 Follow up: Response: No adverse reaction; Pain is decreased ea 06:42 Drug: Phenergan 12.5 mg Route: IVP; Site: right antecubital; ea 07:00 Follow up: Response: No adverse reaction; Nausea is decreased ea 06:42 Drug: NS 0.9% 1000 ml Route: IV; Rate: 1000 ml; Site: right antecubital; ea 08:30 Follow up: IV Status: Completed infusion; IV Intake: 1000ml hj 07:27 Drug: Phenergan 12.5 mg Route: IVP; Site: right antecubital; hj 07:48 Follow up: Response: No adverse reaction; Nausea is decreased hj 11:36 Drug: Zosyn 3.375 grams Route: IVPB; Infused Over: 60 mins; Site: right antecubital; hj 11:51 Follow up: IV Status: Completed infusion hj 12:28 Drug: morphine 2 mg Route: IVP; Site: right antecubital; hj 12:33 Follow up: Response: No adverse reaction hj 12:28 Drug: Zofran 4 mg Route: IVP; Site: right antecubital; hj 12:33 Follow up: Response: No adverse reaction; Nausea is decreased hj Disposition: 04/12 02:56 Co-signature as Attending Physician, Morris Bañuelos MD I agree with the assessment and tw4 plan of care. Attestation: The patient's history, exam findings, diagnostics, and a summary of any interventions or procedures was reviewed in detail with German Andino NP. Disposition: 04/11/18 11:37 Transfer ordered to [facility]. Diagnosis is Cholecystitis. - Reason for transfer: Specialty. - Accepting physician is Skyler. - Condition is Stable. - Problem is new. - Symptoms have improved. Signatures: Dispatcher [employer] EDMS Rod Jacobsen RN RN hj Marinas, Patrick, NP CHARGE ACCOUNT CLERK pm1 Josefa Mitchell RN RN ea Wadley, Terrence, MD MD tw4 Corrections: (The following items were deleted from the chart) 04/11 11:36 10:33 Hospitalization Ordered by Mavis Kauffman MD for Observation. Preliminary pm1 diagnosis is Cholecystitis. Bed requested for Telemetry/MedSurg (observation). Status is Observation. Condition is Stable. Problem is new. Symptoms have improved. UTI on Admission? No. pm1 12:34 11:37 04/11/2018 11:37 Transfer ordered to [facility]. Diagnosis is hj Cholecystitis. Reason for transfer: Specialty. Accepting physician is Skyler. Condition is Stable. Problem is new. Symptoms have improved. pm1
[2018-04-11 11:37] LABS: Urine Blood 1+ (NEG); Urine Glucose 2+ (NEG); Urine Protein 2+ (NEG); Urine Specific Gravity 1.015 (1.005-1.030); Urine pH 5.5 (5.0-7.0)
[2018-04-11] MEDS ORDERED: PIPER/TAZO/NS 3.375gm 3.375 GM/100 ML BAG ONE (11:45)
[2018-04-11] MEDS ORDERED: MORPHINE 4 MG/ML SYR ONE (12:34)
== END 2018-04-11 12:34 | disposition short-term general hospital (02) ==
LOC: ER 05:16
DX: K81.9 Cholecystitis, unspecified (principal); I10 Essential (primary) hypertension; E11.9 Type 2 diabetes mellitus without complications; Z79.4 Long term (current) use of insulin; E78.00 Pure hypercholesterolemia, unspecified; F41.9 Anxiety disorder, unspecified; Z79.82 Long term (current) use of aspirin; Z88.5 Allergy status to narcotic agent; Z88.6 Allergy status to analgesic agent
CPT/HCPCS: 36415; 71045; 74177; 76705; 80048; 80076; 81003; 82550; 82553; 83690; 83735; 83880; 84484; 85025; 85610; 85730; 93005; 96361; 96374; 96375; 99285; J2405; J2543; J2550; J7030; Q9967

== ENCOUNTER 2018-08-05 09:33 | Emergency (ER) | payer OTHER ==
--- OUTSIDE RECORDS SUMMARY | 2018-08-05 09:36 | XMS REPORT | Continuity of Care Document ---
[...] Number For Provider Date Date Visit Outpatient [id number] JOSUÉ 04/02 [facility] [place] Outpatient [id number] JOSUÉ 05/14 [facility] [place] Outpatient [id number] JOSUÉ 05/14 [facility] [place] Outpatient [id number] JOSUÉ 06/24 [facility] [place] Procedures Procedure Code Date Perfomer Comments Source
--- OUTSIDE RECORDS SUMMARY | 2018-08-05 09:36 | XMS REPORT ---
:1955 [facility] Address [address] [place] [address] Dr. Calderón. [address] [place] [address] Care Team Providers Name Role Phone MARY SANCHEZ Unavailable Unavailable Problems This patient has no known problems. Allergies, Adverse Reactions, Alerts This patient has no known allergies or adverse reactions. Medications This patient has no known medications. Results Test Description Test Time Test Comments Text Results Atomic Results Result Comments AFB CULTURE + SMEAR 2018-05-22 17:40:00 Test Item Value Reference Range Comments CULTURE (BEAKER) (test djja=1607) No acid-fast bacilli isolated in 42 days AFB SMEAR (BEAKER) (test aadn=987) No acid fast bacilli seen FUNGUS CULTURE + [id number] 17:06:00 Test Item Value Reference Range Comments CULTURE (BEAKER) (test No fungus isolated in 28 days vdoo=1720) FUNGUS SMEAR (BEAKER) (test No fungi seen lrtq=1846) ANAEROBIC [id number] 10:53:00 Test Item Value Reference Range Comments CULTURE (BEAKER) (test gzbt=0643) 3+ Clostridium perfringens SURGICALLY OBTAINED CULTURE + GRAM [id number] 15:28:00 Test Item Value Reference Range Comments CULTURE (BEAKER) (test 2+ Coagulase negative rflm=0074) Staphylococcus GRAM STAIN RESULT No WBCs (BEAKER) (test rhga=1182) GRAM STAIN RESULT No organisms seen (BEAKER) (test yjpj=09894) POCT-GLUCOSE [id number] 08:43:00 Test Item Value Reference Range Comments POC-GLUCOSE METER (BEAKER) 160 mg/dL 70-110 TESTED AT [facility] [address] [facility] (test mqyb=6317) [facility] [address] HEPATIC FUNCTION [id number] 07:20:00 Test Item Value Reference Range Comments TOTAL PROTEIN (BEAKER) (test ycti=032) 6.4 gm/dL 6.0-8.3 ALBUMIN (BEAKER) (test mckd=1884) 3.1 g/dL 3.5-5.0 BILIRUBIN TOTAL (BEAKER) (test lqou=442) 0.4 mg/dL 0.2-1.2 BILIRUBIN DIRECT (BEAKER) (test fvfv=739) 0.2 mg/dL 0.1-0.5 ALKALINE PHOSPHATASE (BEAKER) (test vraz=404) 67 U/L 40-150 AST (SGOT) (BEAKER) (test zoel=930) 18 U/L 5-34 ALT (SGPT) (BEAKER) (test gkta=218) 38 U/L 6-55 BASIC METABOLIC [id number] 07:20:00 Test Item Value Reference Range Comments SODIUM (BEAKER) (test 136 meq/L 136-145 jinq=170) POTASSIUM (BEAKER) (test 3.3 meq/L 3.5-5.1 oxkl=735) CHLORIDE (BEAKER) (test 99 meq/L 98-107 zoja=854) CO2 (BEAKER) (test 30 meq/L 22-29 vdfv=142) BLOOD UREA NITROGEN 10 mg/dL 7-21 (BEAKER) (test dxcz=384) CREATININE (BEAKER) (test 0.60 mg/dL 0.57-1.25 wmwo=770) GLUCOSE RANDOM (BEAKER) 147 mg/dL 70-105 (test scuz=197) CALCIUM (BEAKER) (test 8.8 mg/dL 8.4-10.2 vcxk=684) EGFR (BEAKER) (test 102 mL/min/1.73 sq m ESTIMATED GFR IS NOT vcaa=8716) ACCURATE CREATININE CLEARANCE IN PREDICTING GLOMERULAR FILTRATION RATE. ESTIMATED GFR IS NOT APPLICABLE FOR DIALYSIS PATIENTS. POCT-GLUCOSE [id number] 21:45:00 Test Item Value Reference Range Comments POC-GLUCOSE METER (BEAKER) 187 mg/dL 70-110 TESTED AT [address] (test aibr=6277) [facility] [address] POCT-GLUCOSE [id number] 18:18:00 Test Item Value Reference Range Comments POC-GLUCOSE METER (BEAKER) 182 mg/dL 70-110 TESTED AT [address] (test dtpi=3204) [facility] [address] C. DIFFICILE GDH [id number] 17:24:00 Test Item Value Reference Range Comments CDT TOXIN (test Negative Negative labv=[id number]) CDT GDH ANTIGEN (test Negative Negative No indication of Clostridium igsz=[id number]) difficile infection and no colonization. Discontinue enteric isolation and therapy. Testing performed by [employer] Rapid Cassette Assay. For GDH, published sensitivity of the assay is 98.7% compared to cytotoxicity testing. For Toxin AB, published sensitivity is 87.8% and specificity 99.4% compared to cytotoxicity testing.Verification of kit performance was done by the [facility] Microbiology Lab prior to clinical use.POCT-GLUCOSE [id number] 12:05:00 Test Item Value Reference Range Comments POC-GLUCOSE METER (BEAKER) 213 mg/dL 70-110 TESTED AT [address] (test sulq=5338) [facility] [address] POCT-GLUCOSE [id number] 08:16:00 Test Item Value Reference Range Comments POC-GLUCOSE METER (BEAKER) 164 mg/dL 70-110 TESTED AT [address] (test zxhf=6038) [facility] [address] HEPATIC FUNCTION [id number] 06:26:00 Test Item Value Reference Range Comments TOTAL PROTEIN (BEAKER) (test oova=509) 6.5 gm/dL 6.0-8.3 ALBUMIN (BEAKER) (test lhhy=9621) 3.1 g/dL 3.5-5.0 BILIRUBIN TOTAL (BEAKER) (test uvhp=145) 0.4 mg/dL 0.2-1.2 BILIRUBIN DIRECT (BEAKER) (test aqah=898) 0.2 mg/dL 0.1-0.5 ALKALINE PHOSPHATASE (BEAKER) (test ljmg=671) 72 U/L 40-150 AST (SGOT) (BEAKER) (test qngd=643) 31 U/L 5-34 ALT (SGPT) (BEAKER) (test tnay=855) 59 U/L 6-55 BASIC METABOLIC [id number] 06:26:00 Test Item Value Reference Range Comments SODIUM (BEAKER) (test 140 meq/L 136-145 ufxo=340) POTASSIUM (BEAKER) (test 3.8 meq/L 3.5-5.1 bpqz=173) CHLORIDE (BEAKER) (test 104 meq/L 98-107 nytl=293) CO2 (BEAKER) (test 31 meq/L 22-29 jsjc=639) BLOOD UREA NITROGEN 14 mg/dL 7-21 (BEAKER) (test tdjt=226) CREATININE (BEAKER) (test 0.58 mg/dL 0.57-1.25 ppty=375) GLUCOSE RANDOM (BEAKER) 162 mg/dL 70-105 (test sqqj=274) CALCIUM (BEAKER) (test 9.1 mg/dL 8.4-10.2 rwlu=871) EGFR (BEAKER) (test 106 mL/min/1.73 sq m ESTIMATED GFR IS NOT xzud=0955) ACCURATE CREATININE CLEARANCE IN PREDICTING GLOMERULAR FILTRATION RATE. ESTIMATED GFR IS NOT APPLICABLE FOR DIALYSIS PATIENTS. CBC W/PLT COUNT & AUTO [id number] 06:08:00 Test Item Value Reference Range Comments WHITE BLOOD CELL COUNT (BEAKER) (test scpd=261) 4.3 K/ L 3.5-10.5 RED BLOOD CELL COUNT (BEAKER) (test fide=671) 3.90 M/ L 3.93-5.22 HEMOGLOBIN (BEAKER) (test begv=284) 10.7 GM/DL 11.2-15.7 HEMATOCRIT (BEAKER) (test pmja=416) 36.1 % 34.1-44.9 MEAN CORPUSCULAR VOLUME (BEAKER) (test govb=815) 92.6 fL 79.4-94.8 MEAN CORPUSCULAR HEMOGLOBIN (BEAKER) (test 27.4 pg 25.6-32.2 ridr=110) MEAN CORPUSCULAR HEMOGLOBIN CONC (BEAKER) (test 29.6 GM/DL 32.2-35.5 hvcs=795) RED CELL DISTRIBUTION WIDTH (BEAKER) (test 14.0 % 11.7-14.4 frea=992) PLATELET COUNT (BEAKER) (test jktn=540) 147 K/CU MM 150-450 MEAN PLATELET VOLUME (BEAKER) (test yvhe=180) 10.7 fL 9.4-12.3 NUCLEATED RED BLOOD CELLS (BEAKER) (test 0 /100 WBC 0-0 jhjj=518) NEUTROPHILS RELATIVE PERCENT (BEAKER) (test 72 % pbjc=272) LYMPHOCYTES RELATIVE PERCENT (BEAKER) (test 18 % dxnc=686) MONOCYTES RELATIVE PERCENT (BEAKER) (test 8 % cund=242) EOSINOPHILS RELATIVE PERCENT (BEAKER) (test 1 % akvz=255) BASOPHILS RELATIVE PERCENT (BEAKER) (test 0 % tgzz=766) NEUTROPHILS ABSOLUTE COUNT (BEAKER) (test 3.11 K/ L 1.56-6.13 nncp=223) LYMPHOCYTES ABSOLUTE COUNT (BEAKER) (test 0.78 K/ L 1.18-3.74 kytu=392) MONOCYTES ABSOLUTE COUNT (BEAKER) (test 0.33 K/ L 0.24-0.36 tklv=404) EOSINOPHILS ABSOLUTE COUNT (BEAKER) (test 0.04 K/ L 0.04-0.36 mvii=497) BASOPHILS ABSOLUTE COUNT (BEAKER) (test 0.01 K/ L 0.01-0.08 hlol=268) IMMATURE GRANULOCYTES-RELATIVE PERCENT (BEAKER) 1 % 0-1 (test szsp=5523) POCT-GLUCOSE [id number] 21:06:00 Test Item Value Reference Range Comments POC-GLUCOSE METER (BEAKER) 208 mg/dL 70-110 TESTED AT [place] [id number] [facility] (test ebbx=7761) [facility] [address] POCT-GLUCOSE [id number] 17:47:00 Test Item Value Reference Range Comments POC-GLUCOSE METER (BEAKER) 190 mg/dL 70-110 TESTED AT [place] [id number] [facility] (test zkvc=4407) [facility] [address] RAD, ABDOMEN/KUB, 1 VIEW [id number] 16:46:00Reason for exam:->assess for obstructionFINAL REPORT Two abdomen images Discussion: Air-filled large bowel loops and some questionable air-filled small bowel loops are noted without gross distention. There is a presumed drain projecting over the right abdomen. No grossly apparent free intraperitoneal air. Signed: Chang Ramírez Verified Date/Time: 04/14/2018 16:46:15 Reading Location: [facility] [id number] Consult Reading Room POCT-GLUCOSE [id number] 15:36:00 Test Item Value Reference Range Comments POC-GLUCOSE METER (BEAKER) 177 mg/dL 70-110 TESTED AT [facility] [address] (test fkqu=0077) [facility] [address] TISSUE [id number] 15:16:00Surgical Pathology Report Case: [id number] Authorizing Provider: Gregory Stiles MD Collected: 04/12/2018 0908 Ordering Location: [facility] Received: 04/12/2018 1210 SERVICES Pathologist: Rosita Moncada MD Specimens: A) - Gallbladder, GALL BLADDER B) -Biopsy, Liver, LIVER BIOPSY A. GALLBLADDER , CHOLECYSTECTOMY: - ACUTE GANGRENOUS CHOLECYSTITIS WITH CHOLELITHIASIS - ONE BENIGN LYMPH NODE (0/1) - NEGATIVE FOR DYSPLASIA OR MALIGNANCYB. LIVER, BIOPSY : - MODERATE STEATOSIS (40%), PREDOMINANTLY MICROVESICULAR - NO DEFINITE BALLOONING DEGENERATION SEEN - MILD PORTAL ACUTE AND CHRONIC INFLAMMATION SEEN - MILD PORTAL FIBROSIS SEEN ON TRICHROME STAIN - NO STAINABLE IRON SEEN ON TANIA'S IRON STAIN, - NO ALPHA-1 ANTITRYPSIN GLOBULES SEEN ON PAS WITH DIASTASE STAIN - INTACT HEPATIC ARCHITECTURE SEEN ON RETICULIN STAIN - NEGATIVE FOR GRANULOMAS, AUTOIMMUNE HEPATITIS, DYSPLASIA OR MALIGNANCY Signing Pathologist Direct Phone Line: [phone] signed by Rosita Moncada MD on 04/14/2018 at 3:16 [id number] cholecystitis A. Gallbladder. B. Liver biopsy Specimen A: Received fresh labeled "gallbladder" is an 11.5 x 5.0 x 3.5 cm focally disrupted gallbladder. The serosal surface is purple-perera to carrizales-white, dusky and exhibits cautery artifact on the hepatic surface. The lumen contains yellow-green to red mucoid bile and multiple irregular, yellow-green to black, multifaceted calculi ranging in size from 0.3 cm to 2.0 cm in greatest dimension. The mucosal surface is yellow-green to red, velvety and glistening. The wall measures up to 0.5 cm in maximum thickness.Section code: A1, parallel cystic duct resection margin and one intact cystic duct lymph node; A2-A3, premium service representative sections of gallbladder.Specimen B: Received in formalin labeled "biopsy, liver" are two light-perera cores of soft tissue measuring 2.0 cm and 2.3 cm in length, entirely submitted in cassette B1. DB/ew DB/ew Performed.POCT-GLUCOSE [id number] 08 :30:00 Test Item Value Reference Range Comments POC-GLUCOSE METER (BEAKER) 203 mg/dL 70-110 TESTED AT [facility] [address] [facility] (test pczq=9040) [facility] [address] HEPATIC FUNCTION [id number] 07:45:00 Test Item Value Reference Range Comments TOTAL PROTEIN (BEAKER) (test vjtq=196) 6.9 gm/dL 6.0-8.3 ALBUMIN (BEAKER) (test dwsk=4460) 3.3 g/dL 3.5-5.0 BILIRUBIN TOTAL (BEAKER) (test jdgc=559) 0.4 mg/dL 0.2-1.2 BILIRUBIN DIRECT (BEAKER) (test jbdx=459) 0.2 mg/dL 0.1-0.5 ALKALINE PHOSPHATASE (BEAKER) (test cdah=180) 89 U/L 40-150 AST (SGOT) (BEAKER) (test gnuz=066) 67 U/L 5-34 ALT (SGPT) (BEAKER) (test sebq=506) 86 U/L 6-55 BASIC METABOLIC [id number] 07:45:00 Test Item Value Reference Range Comments SODIUM (BEAKER) (test 138 meq/L 136-145 effg=552) POTASSIUM (BEAKER) (test 3.7 meq/L 3.5-5.1 lbzh=744) CHLORIDE (BEAKER) (test 105 meq/L 98-107 jicd=712) CO2 (BEAKER) (test 26 meq/L 22-29 zyzf=085) BLOOD UREA NITROGEN 17 mg/dL 7-21 (BEAKER) (test woir=650) CREATININE (BEAKER) (test 0.71 mg/dL 0.57-1.25 muhy=619) GLUCOSE RANDOM (BEAKER) 186 mg/dL 70-105 (test gkrg=778) CALCIUM (BEAKER) (test 9.1 mg/dL 8.4-10.2 tqsw=468) EGFR (BEAKER) (test 84 mL/min/1.73 sq m ESTIMATED GFR IS NOT jato=6340) ACCURATE CREATININE CLEARANCE IN PREDICTING GLOMERULAR FILTRATION RATE. ESTIMATED GFR IS NOT APPLICABLE FOR DIALYSIS PATIENTS. CBC W/PLT COUNT & AUTO [id number] 07:08:00 Test Item Value Reference Range Comments WHITE BLOOD CELL COUNT (BEAKER) (test vspf=664) 5.9 K/ L 3.5-10.5 RED BLOOD CELL COUNT (BEAKER) (test tuph=633) 3.95 M/ L 3.93-5.22 HEMOGLOBIN (BEAKER) (test kqlg=682) 11.0 GM/DL 11.2-15.7 HEMATOCRIT (BEAKER) (test ldti=991) 37.2 % 34.1-44.9 MEAN CORPUSCULAR VOLUME (BEAKER) (test vwvs=767) 94.2 fL 79.4-94.8 MEAN CORPUSCULAR HEMOGLOBIN (BEAKER) (test 27.8 pg 25.6-32.2 wetj=320) MEAN CORPUSCULAR HEMOGLOBIN CONC (BEAKER) (test 29.6 GM/DL 32.2-35.5 omqh=352) RED CELL DISTRIBUTION WIDTH (BEAKER) (test 14.2 % 11.7-14.4 ugqs=437) PLATELET COUNT (BEAKER) (test zixn=231) 146 K/CU MM 150-450 MEAN PLATELET VOLUME (BEAKER) (test tjgb=663) 10.9 fL 9.4-12.3 NUCLEATED RED BLOOD CELLS (BEAKER) (test 0 /100 WBC 0-0 ytrc=319) NEUTROPHILS RELATIVE PERCENT (BEAKER) (test 80 % ogba=496) LYMPHOCYTES RELATIVE PERCENT (BEAKER) (test 12 % pcyw=516) MONOCYTES RELATIVE PERCENT (BEAKER) (test 7 % hmnt=174) EOSINOPHILS RELATIVE PERCENT (BEAKER) (test 0 % uiwy=556) BASOPHILS RELATIVE PERCENT (BEAKER) (test 0 % milc=261) NEUTROPHILS ABSOLUTE COUNT (BEAKER) (test 4.76 K/ L 1.56-6.13 hobn=548) LYMPHOCYTES ABSOLUTE COUNT (BEAKER) (test 0.69 K/ L 1.18-3.74 qoia=628) MONOCYTES ABSOLUTE COUNT (BEAKER) (test 0.41 K/ L 0.24-0.36 smxv=198) EOSINOPHILS ABSOLUTE COUNT (BEAKER) (test 0.02 K/ L 0.04-0.36 hpve=261) BASOPHILS ABSOLUTE COUNT (BEAKER) (test 0.01 K/ L 0.01-0.08 belb=950) IMMATURE GRANULOCYTES-RELATIVE PERCENT (BEAKER) 1 % 0-1 (test tbxi=9854) POCT-GLUCOSE [id number] 21:45:00 Test Item Value Reference Range Comments POC-GLUCOSE METER (BEAKER) 192 mg/dL 70-110 TESTED AT [address] (test zsbl=2442) [place] [id number] POCT-GLUCOSE [id number] 17:16:00 Test Item Value Reference Range Comments POC-GLUCOSE METER (BEAKER) 149 mg/dL 70-110 TESTED AT [address] (test bqkf=9657) [place] [address] POCT-GLUCOSE [id number] 12:45:00 Test Item Value Reference Range Comments POC-GLUCOSE METER (BEAKER) 167 mg/dL 70-110 TESTED AT [address] (test uakk=8830) [place] [address] HEMOGLOBIN [id number] 10:21:00 Test Item Value Reference Range Comments HEMOGLOBIN A1C (BEAKER) (test hugr=261) 7.5 % 4.3-6.1 POCT-GLUCOSE [id number] 08:05:00 Test Item Value Reference Range Comments POC-GLUCOSE METER (BEAKER) 166 mg/dL 70-110 TESTED AT [address] (test joyx=2350) [place] [id number] HEPATIC FUNCTION [id number] 06:34:00 Test Item Value Reference Range Comments TOTAL PROTEIN (BEAKER) (test twxm=187) 6.2 gm/dL 6.0-8.3 ALBUMIN (BEAKER) (test gfhm=3007) 3.1 g/dL 3.5-5.0 BILIRUBIN TOTAL (BEAKER) (test cjcy=025) 0.7 mg/dL 0.2-1.2 BILIRUBIN DIRECT (BEAKER) (test clxk=727) 0.4 mg/dL 0.1-0.5 ALKALINE PHOSPHATASE (BEAKER) (test lghc=292) 60 U/L 40-150 AST (SGOT) (BEAKER) (test fjtq=075) 112 U/L 5-34 ALT (SGPT) (BEAKER) (test qkre=140) 89 U/L 6-55 BASIC METABOLIC [id number] 06:34:00 Test Item Value Reference Range Comments SODIUM (BEAKER) (test 139 meq/L 136-145 xhir=258) POTASSIUM (BEAKER) (test 3.7 meq/L 3.5-5.1 jtmj=747) CHLORIDE (BEAKER) (test 107 meq/L 98-107 oiam=647) CO2 (BEAKER) (test 26 meq/L 22-29 oljp=087) BLOOD UREA NITROGEN 21 mg/dL 7-21 (BEAKER) (test hbcw=352) CREATININE (BEAKER) (test 0.81 mg/dL 0.57-1.25 xrse=663) GLUCOSE RANDOM (BEAKER) 162 mg/dL 70-105 (test svdh=892) CALCIUM (BEAKER) (test 8.4 mg/dL 8.4-10.2 bneo=128) EGFR (BEAKER) (test 72 mL/min/1.73 sq m ESTIMATED GFR IS NOT wszg=7854) ACCURATE CREATININE CLEARANCE IN PREDICTING GLOMERULAR FILTRATION RATE. ESTIMATED GFR IS NOT APPLICABLE FOR DIALYSIS PATIENTS. CBC W/PLT COUNT & AUTO [id number] 06:09:00 Test Item Value Reference Range Comments WHITE BLOOD CELL COUNT (BEAKER) (test vkuq=238) 7.1 K/ L 3.5-10.5 RED BLOOD CELL COUNT (BEAKER) (test fxgu=135) 3.92 M/ L 3.93-5.22 HEMOGLOBIN (BEAKER) (test xpiy=235) 10.9 GM/DL 11.2-15.7 HEMATOCRIT (BEAKER) (test mqyg=419) 37.0 % 34.1-44.9 MEAN CORPUSCULAR VOLUME (BEAKER) (test gytt=271) 94.4 fL 79.4-94.8 MEAN CORPUSCULAR HEMOGLOBIN (BEAKER) (test 27.8 pg 25.6-32.2 yukt=098) MEAN CORPUSCULAR HEMOGLOBIN CONC (BEAKER) (test 29.5 GM/DL 32.2-35.5 fjer=425) RED CELL DISTRIBUTION WIDTH (BEAKER) (test 14.6 % 11.7-14.4 ijzw=058) PLATELET COUNT (BEAKER) (test owfa=450) 120 K/CU MM 150-450 MEAN PLATELET VOLUME (BEAKER) (test wsdw=522) 11.5 fL 9.4-12.3 NUCLEATED RED BLOOD CELLS (BEAKER) (test 0 /100 WBC 0-0 cygj=262) NEUTROPHILS RELATIVE PERCENT (BEAKER) (test 80 % gsbu=656) LYMPHOCYTES RELATIVE PERCENT (BEAKER) (test 13 % nqto=490) MONOCYTES RELATIVE PERCENT (BEAKER) (test 6 % aimp=046) EOSINOPHILS RELATIVE PERCENT (BEAKER) (test 0 % zrdf=486) BASOPHILS RELATIVE PERCENT (BEAKER) (test 0 % yqzo=379) NEUTROPHILS ABSOLUTE COUNT (BEAKER) (test 5.73 K/ L 1.56-6.13 srjk=197) LYMPHOCYTES ABSOLUTE COUNT (BEAKER) (test 0.93 K/ L 1.18-3.74 szbu=873) MONOCYTES ABSOLUTE COUNT (BEAKER) (test 0.41 K/ L 0.24-0.36 ujbj=802) EOSINOPHILS ABSOLUTE COUNT (BEAKER) (test 0.01 K/ L 0.04-0.36 vwch=879) BASOPHILS ABSOLUTE COUNT (BEAKER) (test 0.01 K/ L 0.01-0.08 nbzp=971) IMMATURE GRANULOCYTES-RELATIVE PERCENT (BEAKER) 1 % 0-1 (test cval=2163) POCT-GLUCOSE [id number] 22:00:00 Test Item Value Reference Range Comments POC-GLUCOSE METER (BEAKER) 181 mg/dL 70-110 TESTED AT [address] (test xdcd=4107) [place] [address] POCT-GLUCOSE [id number] 17:49:00 Test Item Value Reference Range Comments POC-GLUCOSE METER (BEAKER) 192 mg/dL 70-110 TESTED AT [address] (test ywom=7584) [place] [address] POCT-GLUCOSE [id number] 12:34:00 Test Item Value Reference Range Comments POC-GLUCOSE METER (BEAKER) 244 mg/dL 70-110 TESTED AT [address] (test haei=2306) [place] [address] SPIN/CONCENTRATION [id number] 12:14:00 Test Item Value Reference Range Comments CONCENTRATION CHARGED (BEAKER) (test lhgx=8327) Done POCT-GLUCOSE [id number] 11:05:00 Test Item Value Reference Range Comments POC-GLUCOSE METER (BEAKER) 282 mg/dL 70-110 TESTED AT [address] (test eais=7043) [place] [address] B-TYPE NATRIURETIC FACTOR (BNP)2018-04-12 01:38:00 Test Item Value Reference Range Comments B-TYPE NATRIURETIC PEPTIDE (BEAKER) (test 141 pg/mL 0-100 qddy=267) HEPATIC FUNCTION [id number] 01:31:00 Test Item Value Reference Range Comments TOTAL PROTEIN (BEAKER) (test pldy=845) 6.0 gm/dL 6.0-8.3 ALBUMIN (BEAKER) (test qvlx=4652) 3.3 g/dL 3.5-5.0 BILIRUBIN TOTAL (BEAKER) (test wfro=288) 0.6 mg/dL 0.2-1.2 BILIRUBIN DIRECT (BEAKER) (test tpue=922) 0.3 mg/dL 0.1-0.5 ALKALINE PHOSPHATASE (BEAKER) (test ccil=817) 52 U/L 40-150 AST (SGOT) (BEAKER) (test hgpc=345) 15 U/L 5-34 ALT (SGPT) (BEAKER) (test lkav=629) 13 U/L 6-55 BASIC METABOLIC [id number] 01:31:00 Test Item Value Reference Range Comments SODIUM (BEAKER) (test 140 meq/L 136-145 lncl=499) POTASSIUM (BEAKER) (test 3.6 meq/L 3.5-5.1 vpjv=209) CHLORIDE (BEAKER) (test 110 meq/L 98-107 uohz=597) CO2 (BEAKER) (test 24 meq/L 22-29 jgye=490) BLOOD UREA NITROGEN 15 mg/dL 7-21 (BEAKER) (test hotx=190) CREATININE (BEAKER) (test 0.71 mg/dL 0.57-1.25 qojx=450) GLUCOSE RANDOM (BEAKER) 223 mg/dL 70-105 (test vzsx=175) CALCIUM (BEAKER) (test 8.0 mg/dL 8.4-10.2 kezp=577) EGFR (BEAKER) (test 84 mL/min/1.73 sq m ESTIMATED GFR IS NOT tzak=4846) ACCURATE CREATININE CLEARANCE IN PREDICTING GLOMERULAR FILTRATION RATE. ESTIMATED GFR IS NOT APPLICABLE FOR DIALYSIS PATIENTS. LACTIC ACID, VENOUS, WHOLE [id number] 01:25:00 Test Item Value Reference Range Comments LACTATE BLOOD VENOUS (2) 0.8 mmol/L 0.5-2.2 Specimen slightly hemolyzed (BEAKER) (test oset=8906) Effective 12/12/2015: Units/Reference Range ChangeNew: 0.5-2.2 mmol/L Previous: 5 -20 mg/dLCBC W/PLT COUNT & AUTO [id number] 01:23:00 Test Item Value Reference Range Comments WHITE BLOOD CELL COUNT (BEAKER) (test axuu=070) 9.9 K/ L 3.5-10.5 RED BLOOD CELL COUNT (BEAKER) (test vsab=066) 4.22 M/ L 3.93-5.22 HEMOGLOBIN (BEAKER) (test plxu=631) 12.0 GM/DL 11.2-15.7 HEMATOCRIT (BEAKER) (test dzhp=617) 38.2 % 34.1-44.9 MEAN CORPUSCULAR VOLUME (BEAKER) (test uhal=230) 90.5 fL 79.4-94.8 MEAN CORPUSCULAR HEMOGLOBIN (BEAKER) (test 28.4 pg 25.6-32.2 jauj=628) MEAN CORPUSCULAR HEMOGLOBIN CONC (BEAKER) (test 31.4 GM/DL 32.2-35.5 qymg=082) RED CELL DISTRIBUTION WIDTH (BEAKER) (test 14.1 % 11.7-14.4 moxm=782) PLATELET COUNT (BEAKER) (test tvlo=146) 131 K/CU MM 150-450 MEAN PLATELET VOLUME (BEAKER) (test ncly=984) 11.5 fL 9.4-12.3 NUCLEATED RED BLOOD CELLS (BEAKER) (test 0 /100 WBC 0-0 xtcm=821) NEUTROPHILS RELATIVE PERCENT (BEAKER) (test 86 % xpyj=124) LYMPHOCYTES RELATIVE PERCENT (BEAKER) (test 7 % vmfz=933) MONOCYTES RELATIVE PERCENT (BEAKER) (test 7 % cdhs=246) EOSINOPHILS RELATIVE PERCENT (BEAKER) (test 0 % ohfv=908) BASOPHILS RELATIVE PERCENT (BEAKER) (test 0 % yoqk=640) NEUTROPHILS ABSOLUTE COUNT (BEAKER) (test 8.50 K/ L 1.56-6.13 ugju=530) LYMPHOCYTES ABSOLUTE COUNT (BEAKER) (test 0.66 K/ L 1.18-3.74 bats=087) MONOCYTES ABSOLUTE COUNT (BEAKER) (test 0.71 K/ L 0.24-0.36 njzf=568) EOSINOPHILS ABSOLUTE COUNT (BEAKER) (test 0.00 K/ L 0.04-0.36 gfid=704) BASOPHILS ABSOLUTE COUNT (BEAKER) (test 0.01 K/ L 0.01-0.08 zwjf=063) IMMATURE GRANULOCYTES-RELATIVE PERCENT (BEAKER) 1 % 0-1 (test yitk=6055) RAD, CHEST, 1 VIEW, NON [id number] 23:26:00Reason for exam:->sobFINAL REPORT History: Shortness of breath. Comparison: None. Findings: A single view of the chest is submitted. The cardiomediastinal contours are unremarkable. There is no focal consolidation, pneumothorax, large pleural effusion or evidence of overt pulmonary edema. There is no acute bony abnormality. Impression: No acute abnormality. Signed: Enrique Montelongo Verified Date/Time: 04/11/2018 23:26:54 Reading Location: [address] Reading Room POCT-GLUCOSE [id number] 21:49:00 Test Item Value Reference Range Comments POC-GLUCOSE METER (BEAKER) 240 mg/dL 70-110 TESTED AT [address] (test opft=3726) [facility] [id number] LIPID [id number] 18:37:00 Test Item Value Reference Range Comments TRIGLYCERIDES (BEAKER) (test 126 mg/dL Specimen slightly hemolyzed yhpe=745) CHOLESTEROL (BEAKER) (test 177 mg/dL Specimen slightly hemolyzed gdsi=861) HDL CHOLESTEROL (BEAKER) (test 54 mg/dL xadn=648) LDL CHOLESTEROL CALCULATED 98 mg/dL (BEAKER) (test jhkn=045) Triglyceride Reference Range: Low Risk <150 Borderline 150- 199 High Risk 200-499 Very High Risk >=500Cholesterol Reference Range: Low Risk <200 Borderline 200-239 High Risk > 240HDL Cholesterol Reference Range: Low Risk >=60 High Risk <40LDL Cholesterol Reference Range: Optimal <100 Near Optimal 100-129 Borderline 130-159 High 160-189 Very High >=190HEPATIC FUNCTION [id number] 18:37:00 Test Item Value Reference Range Comments TOTAL PROTEIN (BEAKER) (test 7.6 gm/dL 6.0-8.3 Specimen slightly hemolyzed vwmr=246) ALBUMIN (BEAKER) (test 4.1 g/dL 3.5-5.0 Specimen slightly hemolyzed jukp=9090) BILIRUBIN TOTAL (BEAKER) (test 0.7 mg/dL 0.2-1.2 Specimen slightly hemolyzed wsga=321) BILIRUBIN DIRECT (BEAKER) (test 0.3 mg/dL 0.1-0.5 Specimen slightly hemolyzed ypoz=604) ALKALINE PHOSPHATASE (BEAKER) 69 U/L 40-150 (test ptkt=111) AST (SGOT) (BEAKER) (test 20 U/L 5-34 Specimen slightly hemolyzed jifn=838) ALT (SGPT) (BEAKER) (test 18 U/L 6-55 Specimen slightly hemolyzed esrx=985) [id number] 18:36:00 Test Item Value Reference Range Comments LIPASE (BEAKER) (test paap=699) 15 U/L 8-78 BASIC METABOLIC [id number] 18:35:00 Test Item Value Reference Range Comments SODIUM (BEAKER) (test 139 meq/L 136-145 csns=050) POTASSIUM (BEAKER) (test 3.8 meq/L 3.5-5.1 Specimen slightly eqmz=747) hemolyzed CHLORIDE (BEAKER) (test 106 meq/L 98-107 yrwo=557) CO2 (BEAKER) (test 23 meq/L 22-29 uqrr=302) BLOOD UREA NITROGEN 15 mg/dL 7-21 (BEAKER) (test jrqx=589) CREATININE (BEAKER) (test 0.72 mg/dL 0.57-1.25 Specimen slightly jsvo=743) hemolyzed GLUCOSE RANDOM (BEAKER) 227 mg/dL 70-105 (test cxbe=535) CALCIUM (BEAKER) (test 9.3 mg/dL 8.4-10.2 czis=434) EGFR (BEAKER) (test 82 mL/min/1.73 sq m ESTIMATED GFR IS NOT vkfw=1940) ACCURATE CREATININE CLEARANCE IN PREDICTING GLOMERULAR FILTRATION RATE. ESTIMATED GFR IS NOT APPLICABLE FOR DIALYSIS PATIENTS.
--- OUTSIDE RECORDS SUMMARY | 2018-08-05 09:36 | XMS REPORT | Clinical Summary ---
:1955 Author Organization [facility] Address [address] [place] [address] Care Team Providers Name Role Phone Willie Voss MD Primary Care Provider Allergies Active Allergy Reactions Severity Noted Date Comments Acetaminophen-Codeine Anxiety Low 02/21/2014 Alprazolam 10/10/2005 Codeine Palpitations Low 10/10/2005 Hydrocodone Anxiety Low 02/21/2014 Hydrocodone-Acetaminophen 10/10/2005 Iodine And Iodide Containing Products Hives 10/11/2005 Theophylline 10/10/2005 Medications Medication Sig Dispensed Refills Start End Date Status Date traMADol (ULTRAM) Take 1 tablet (50 30 tablet 0 Active 50 mg tablet mg total) by mouth 8 every 8 (eight) hours as needed for Pain for up to 30 doses. Max Daily Amount: 150 mg atorvastatin Take 40 mg by 0 Active (LIPITOR) 40 MG mouth nightly. 5 tablet esomeprazole Take 40 mg by 9 Active (NEXIUM) 40 MG mouth 2 (two) 8 capsule times daily. fenofibrate Take 54 mg by 0 Active (LOFIBRA) 54 MG mouth daily. 8 tablet LANTUS U-100 Inject 30 Units 3 Active INSULIN 100 unit/mL subcutaneously 2 8 injection (two) times daily. lisinopril Take 10 mg by 1 04/16/20 Discontinued (PRINIVIL,ZESTRIL) mouth daily. 8 18 10 MG tablet lisinopril Take 2 tablets (20 60 tablet 0 05/16/20 (PRINIVIL,ZESTRIL) mg total) by mouth 8 18 10 MG tablet daily for 30 days. loperamide Take 1 capsule (2 3 capsule 0 04/20/20 (IMODIUM) 2 mg mg total) by mouth 8 18 capsule daily for 3 days. ondansetron Take 1 tablet (4 20 tablet 0 04/23/20 (ZOFRAN-ODT) 4 MG mg total) by mouth 8 18 disintegrating every 8 (eight) tablet hours as needed for up to 7 days. Active Problems Problem Noted Date Hepatic steatosis 04/16/2018 Normocytic anemia 04/15/2018 Hypertension 04/12/2018 Hyperlipidemia 04/12/2018 Type 2 diabetes mellitus 04/12/2018 Obstructive sleep apnea 04/12/2018 GERD (gastroesophageal reflux disease) 04/12/2018 Class 2 obesity in adult 04/12/2018 Acute gangrenous cholecystitis s/p lap toma (04/12) 04/11/2018 Encounters Date Type Specialty Care Team Description 04/12/2018 Anesthesia Event Piotr Blood MD 04/12/2018 Surgery Go, LAPAROSCOPY,CHOLECYSTE MD Gregory CTOMY 04/11/2018 - Hospital Encounter General Internal Skyler, S/P laparoscopic cholecystectomy (Primary Dx); 04/16/2018 Medicine MD Pippa Cholecystitis, acute; Jean Robertson Obstructive sleep apnea; Type 2 diabetes mellitus without complication, unspecified whether fdc insulin use (HCC) Ingrid Fuentes MD after 08/04/2017 Social History Tobacco Use Types Packs/Day Years Used Date Never Assessed Sex Assigned at Date Recorded Not on file Job Start Date Occupation Industry Not on file Not on file Not on file Travel History Travel Start Travel End No recent travel history available. Last Filed Vital Signs Vital Sign Reading Time Taken Blood Pressure 145/67 04/16/2018 11:44 AM CDT Pulse 86 04/16/2018 11:44 AM CDT Temperature 36.1 C (96.9 F) 04/16/2018 11:44 AM CDT Respiratory Rate 18 04/16/2018 11:44 AM CDT Oxygen Saturation 95% 04/16/2018 11:44 AM CDT Inhaled Oxygen Concentration 21% 04/15/2018 11:50 PM CDT Weight 111.2 kg (245 lb 3.2 oz) 04/12/2018 5:57 AM CDT Height 172.7 cm (5' 8") 04/11/2018 1:58 PM CDT Body Mass Index 37.28 04/12/2018 5:57 AM CDT Plan of Treatment Not on file Procedures Procedure Name Priority Date/Time Associated Diagnosis Comments REPORT OF PROCEDURE 04/19/2018 2:30 - ENDOSCOPY SCAN PM CDT RHYTHM STRIP - SCAN 04/19/2018 2:30 PM CDT POCT-GLUCOSE METER Routine 04/16/2018 8:11 Results for this AM CDT procedure are in the results section. HEPATIC FUNCTION Routine 04/16/2018 6:41 Results for this PANEL AM CDT procedure are in the results section. BASIC METABOLIC Routine 04/16/2018 6:41 Results for this PANEL (7) AM CDT procedure are in the results section. POCT-GLUCOSE METER Routine 04/15/2018 9:34 Results for this PM CDT procedure are in the results section. POCT-GLUCOSE METER Routine 04/15/2018 6:16 Results for this PM CDT procedure are in the results section. C. DIFFICILE GDH Routine 04/15/2018 11:43 Results for this TOXIN AM CDT procedure are in the results section. POCT-GLUCOSE METER Routine 04/15/2018 11:39 Results for this AM CDT procedure are in the results section. POCT-GLUCOSE METER Routine 04/15/2018 7:46 Results for this AM CDT procedure are in the results section. CBC W/PLT COUNT & Routine 04/15/2018 5:33 Results for this AUTO DIFFERENTIAL AM CDT procedure are in the results section. HEPATIC FUNCTION Routine 04/15/2018 5:33 Results for this PANEL AM CDT procedure are in the results section. CBC W/PLT COUNT & Routine 04/15/2018 5:33 Results for this AUTO DIFFERENTIAL AM CDT procedure are in the results section. BASIC METABOLIC Routine 04/15/2018 5:33 Results for this PANEL (7) AM CDT procedure are in the results section. POCT-GLUCOSE METER Routine 04/14/2018 9:02 Results for this PM CDT procedure are in the results section. POCT-GLUCOSE METER Routine 04/14/2018 5:37 Results for this PM CDT procedure are in the results section. POCT-GLUCOSE METER Routine 04/14/2018 3:33 Results for this PM CDT procedure are in the results section. XR ABDOMEN 1 VIEW MINOR 04/14/2018 2:45 Results for this PM CDT procedure are in the results section. POCT-GLUCOSE METER Routine 04/14/2018 7:55 Results for this AM CDT procedure are in the results section. CBC W/PLT COUNT & Routine 04/14/2018 6:25 Results for this AUTO DIFFERENTIAL AM CDT procedure are in the results section. HEPATIC FUNCTION Routine 04/14/2018 6:25 Results for this PANEL AM CDT procedure are in the results section. CBC W/PLT COUNT & Routine 04/14/2018 6:25 Results for this AUTO DIFFERENTIAL AM CDT procedure are in the results section. BASIC METABOLIC Routine 04/14/2018 6:25 Results for this PANEL (7) AM CDT procedure are in the results section. POCT-GLUCOSE METER Routine 04/13/2018 9:44 Results for this PM CDT procedure are in the results section. TRANSFUSION SERVICE 04/13/2018 6:00 REPORT - SCAN PM CDT POCT-GLUCOSE METER Routine 04/13/2018 5:08 Results for this PM CDT procedure are in the results section. POCT-GLUCOSE METER Routine 04/13/2018 12:24 Results for this PM CDT procedure are in the results section. POCT-GLUCOSE METER Routine 04/13/2018 7:48 Results for this AM CDT procedure are in the results section. CBC W/PLT COUNT & Routine 04/13/2018 5:39 Results for this AUTO DIFFERENTIAL AM CDT procedure are in the results section. HEMOGLOBIN A1C Routine 04/13/2018 5:39 Results for this AM CDT procedure are in the results section. HEPATIC FUNCTION Routine 04/13/2018 5:39 Results for this PANEL AM CDT procedure are in the results section. CBC W/PLT COUNT & Routine 04/13/2018 5:39 Results for this AUTO DIFFERENTIAL AM CDT procedure are in the results section. BASIC METABOLIC Routine 04/13/2018 5:39 Results for this PANEL (7) AM CDT procedure are in the results section. POCT-GLUCOSE METER Routine 04/12/2018 9:51 Results for this PM CDT procedure are in the results section. POCT-GLUCOSE METER Routine 04/12/2018 5:27 Results for this PM CDT procedure are in the results section. POCT-GLUCOSE METER Routine 04/12/2018 12:30 Results for this PM CDT procedure are in the results section. POCT-GLUCOSE METER Routine 04/12/2018 11:03 Results for this AM CDT procedure are in the results section. FUNGUS CULTURE + Routine 04/12/2018 9:08 Results for this SMEAR AM CDT procedure are in the results section. AFB CULTURE + SMEAR Routine 04/12/2018 9:08 Results for this AM CDT procedure are in the results section. ANAEROBIC CULTURE Routine 04/12/2018 9:08 Results for this AM CDT procedure are in the results section. SURGICALLY OBTAINED Routine 04/12/2018 9:08 Results for this CULTURE + GRAM STAIN AM CDT procedure are in the results section. SPIN/CONCENTRATION Routine 04/12/2018 9:08 Results for this CHARGE AM CDT procedure are in the results section. TISSUE EXAM AP Routine 04/12/2018 9:08 Results for this AM CDT procedure are in the results section. LAPAROSCOPY,CHOLECYS 04/12/2018 8:00 Acute cholecystitis TECTOMY AM CDT TYPE AND SCREEN, Routine 04/12/2018 6:20 Results for this AUTOMATED AM CDT procedure are in the results section. CBC W/PLT COUNT & STAT 04/12/2018 12:46 Results for this AUTO DIFFERENTIAL AM CDT procedure are in the results section. CBC W/PLT COUNT & STAT 04/12/2018 12:46 Results for this AUTO DIFFERENTIAL AM CDT procedure are in the results section. HEPATIC FUNCTION Routine 04/12/2018 12:46 Results for this PANEL AM CDT procedure are in the results section. BASIC METABOLIC STAT 04/12/2018 12:46 Results for this PANEL (7) AM CDT procedure are in the results section. B-TYPE NATRIURETIC STAT 04/12/2018 12:46 Results for this FACTOR (BNP) AM CDT procedure are in the results section. LACTIC ACID, VENOUS, STAT 04/12/2018 12:46 Results for this WHOLE BLOOD AM CDT procedure are in the results section. XR CHEST 1 VIEW STAT 04/11/2018 11:00 Results for this PORTABLE/BEDSIDE PM CDT procedure are in the results section. POCT-GLUCOSE METER Routine 04/11/2018 9:47 Results for this PM CDT procedure are in the results section. LIPASE Routine 04/11/2018 6:04 Results for this PM CDT procedure are in the results section. LIPID PANEL Routine 04/11/2018 6:04 Results for this PM CDT procedure are in the results section. HEPATIC FUNCTION Routine 04/11/2018 6:04 Results for this PANEL PM CDT procedure are in the results section. BASIC METABOLIC STAT 04/11/2018 6:04 Results for this PANEL (7) PM CDT procedure are in the results section. after 08/04/2017 Results EKG-SCANNED (04/19/2018 2:30 PM CDT) Narrative Performed At RHYTHM STRIP - SCAN (04/19/2018 2:30 PM CDT) Narrative Performed At POC-Glucose meter (04/16/2018 8:11 AM CDT)Only the most recent of18 resultswithin the time period is included. POC-Glucose Meter 160 (H)Comment: TESTED AT 70 - 110 mg/dL [address] [address] Specimen Blood Performing Organization Address [facility] [place] Phone Number [address] [address] [place] Hepatic function panel (04/16/2018 6:41 AM CDT)Only the most recent of6 resultswithin the time period is included. Protein, Total 6.4 6.0 - 8.3 gm/dL [facility] Albumin 3.1 (L) 3.5 - 5.0 g/dL [facility] Total Bilirubin 0.4 0.2 - 1.2 mg/dL [facility] Bilirubin, Direct 0.2 0.1 - 0.5 mg/dL [facility] Alkaline Phosphatase 67 40 - 150 U/L [facility] AST 18 5 - 34 U/L [facility] ALT 38 6 - 55 U/L [facility] Specimen Blood - Arm, Right Performing Organization Address [facility] Phone Number [address] [address] [place] Basic metabolic panel (04/16/2018 6:41 AM CDT)Only the most recent of6 resultswithin the time period is included. Sodium 136 136 - 145 meq/L [facility] Potassium 3.3 (L) 3.5 - 5.1 meq/L [facility] Chloride 99 98 - 107 meq/L [facility] CO2 30 (H) 22 - 29 meq/L [facility] BUN 10 7 - 21 mg/dL [facility] Creatinine 0.60 0.57 - 1.25 mg/dL [facility] Glucose 147 (H) 70 - 105 mg/dL [facility] Calcium 8.8 8.4 - 10.2 mg/dL [facility] EGFR 102Comment: ESTIMATED GFR IS mL/min/1.73 sq m [facility] NOT ACCURATE CREATININE [facility] CLEARANCE IN PREDICTING GLOMERULAR FILTRATION RATE. ESTIMATED GFR IS NOT APPLICABLE FOR DIALYSIS PATIENTS. Specimen Blood - Arm, Right Performing Organization Address City/[facility]/Zipcode Phone Number [facility] [address] [place] [address] [place] Clostridium difficile GDH Toxin (04/15/2018 11:43 AM CDT) C. Difficle Toxin Negative Negative [facility] C. Difficile GDH Antigen NegativeComment: No Negative [facility] indication of Clostridium [facility] [place] difficile infection and no colonization. Discontinue enteric isolation and therapy. Specimen Stool - Stool Narrative Performed At Testing performed by Ale[employer] Rapid Cassette [facility] Assay.For GDH, published sensitivity of the assay is 98.7% compared to cytotoxicity testing.For Toxin AB, published sensitivity is 87.8% and specificity 99.4% compared to cytotoxicity testing. Verification of kit performance was done by the [facility] Microbiology Lab prior to clinical use. Performing Organization Address City/[facility]/Zipcode Phone Number [facility] [address] [address] [phone] CENTER CBC with platelet count + automated diff (04/15/2018 5:33 AM CDT)Only the most recent of4 resultswithin the time period is included. WBC 4.3 3.5 - 10.5 K/L [facility] RBC 3.90 (L) 3.93 - 5.22 M/L [facility] Hemoglobin 10.7 (L) 11.2 - 15.7 GM/DL [facility] Hematocrit 36.1 34.1 - 44.9 % [facility] MCV 92.6 79.4 - 94.[address] fL [facility] MCH 27.4 25.6 - 32.2 [address] [facility] MCHC 29.6 (L) 32.2 - 35.5 GM/DL [facility] RDW 14.0 11.7 - 14.4 % [facility] Platelets 147 (L) 150 - 450 K/CU MM [facility] MPV 10.7 9.4 - 12.[address]L [facility] nRBC 0 0 - 0 /100 WBC [facility] % Neutros 72 % [facility] % Lymphs 18 % [facility] % Monos 8 % [facility] % Eos 1 % [facility] % Baso 0 % [facility] # Neutros 3.11 1.56 - 6.13 K/L [facility] # Lymphs 0.78 (L) 1.18 - 3.74 K/L [facility] # Monos 0.33 0.24 - 0.36 K/L [facility] # Eos 0.04 0.04 - 0.36 K/L [facility] # Baso 0.01 0.01 - 0.08 K/L [facility] Immature Granulocytes-Relative 1 0 - 1 % [facility] Specimen Blood - Arm, Left Performing Organization Address City/State/Zipcode Phone Number [facility] [address] [place] [address] [phone] CENTER XR abdomen / KUB 1 view (04/14/2018 2:45 PM CDT) Narrative Performed At FINAL REPORT GE RIS Two abdomen images Discussion: Air-filled large bowel loops and some questionable air-filled small bowel loops are noted without gross distention. There is a presumed drain projecting over the right abdomen. No grossly apparent free intraperitoneal air. Signed: Chang Ramírez MD Report Verified Date/Time:04/14/2018 16:46:15 Reading Location: [facility] C013 Consult Reading Room Procedure Note Interface, External Ris In - 04/14/2018 4:48 PM CDT FINAL REPORT Two abdomen images Discussion: Air-filled large bowel loops and some questionable air-filled small bowel loops are noted without gross distention. There is a presumed drain projecting over the right abdomen. No grossly apparent free intraperitoneal air. Signed: Chang Ramírez MD Report Verified Date/Time: 04/14/2018 16:46:15 Reading Location: [facility] [id number] Consult Reading Room Performing Organization Address City/State/Zipcode Phone Number GE RIS TRANSFUSION SERVICE REPORT - SCAN (04/13/2018 6:00 PM CDT) Narrative Performed At Hemoglobin A1c (04/13/2018 5:39 AM CDT) Hemoglobin A1C 7.5 (H) 4.3 - 6.1 % [facility] Specimen Blood - Arm, Right Performing Organization Address City/State/Zipcode Phone Number [address] [address] [phone] [place] AFB culture + smear (04/12/2018 9:08 AM CDT) Result No acid-fast bacilli isolated in [facility] 42 days CENTER AFB Smear No acid fast bacilli seen [facility] Specimen Body Fluid - Bile Performing Organization Address City/[facility] Phone Number [address] [address] [phone] [place] Anaerobic culture (04/12/2018 9:08 AM CDT) Result CLOSTRIDIUM PERFRINGENS (A) [facility] Specimen Body Fluid - Bile Performing Organization Address [facility] Phone Number [address] [address] [place] Surgically obtained culture + gram stain (04/12/2018 9:08 AM CDT) Result STAPHYLOCOCCUS, COAGULASE [facility] NEGATIVE () MEDICAL CENTER Gram Stain Result No WBCs [facility] Gram Stain Result No organisms seen [facility] Specimen Body Fluid - Bile Organism Antibiotic Method Susceptibility Coagulase negative Clindamycin <=0.12: Susceptible Staphylococcus Coagulase negative Erythromycin 4: Resistant Staphylococcus Coagulase negative Linezolid 1: Susceptible Staphylococcus Coagulase negative Oxacillin >=4: Resistant Staphylococcus Coagulase negative Rifampin <=0.5: Susceptible Staphylococcus Coagulase negative Tetracycline <=1: Susceptible Staphylococcus Coagulase negative Trimethoprim + 80: Resistant Staphylococcus Sulfamethoxazole Coagulase negative Vancomycin 1: Susceptible Staphylococcus Performing Organization Address [facility] Phone Number [address] [address] CENTER Fungus culture + smear (04/12/2018 9:08 AM CDT) Result No fungus isolated in 28 days [facility] Fungus Smear No fungi seen [facility] Specimen Body Fluid - Bile Performing Organization Address City/[facility] Phone Number [facility] [address] [place] [address] [phone] CENTER SPIN/CONCENTRATION CHARGE (04/12/2018 9:08 AM CDT) Concentration charged Done [facility] Specimen Body Fluid - Bile Performing Organization Address City/State/Zipcode Phone Number [facility] [address] [place] [address] [phone] [place] Tissue Exam (04/12/2018 9:08 AM CDT) Case Report Surgical Pathology Report Case: [id number] [facility] Authorizing Provider:Gregory Stiles MDCollected: 04/12/2018 0908 [facility] Ordering Location: [facility] PERIOPERATIVE Received: 04/12/2018 1210 SERVICES Pathologist: Rosita Moncada MD Specimens: A) - Gallbladder, GALL BLADDER B) - Biopsy, Liver, LIVER BIOPSY DIAGNOSIS A. GALLBLADDER, CHOLECYSTECTOMY: [facility] - ACUTE GANGRENOUS CHOLECYSTITIS WITH CHOLELITHIASIS [facility] - ONE BENIGN LYMPH NODE (0/1) - NEGATIVE FOR DYSPLASIA OR MALIGNANCY B. LIVER, BIOPSY: - MODERATE STEATOSIS (40%), PREDOMINANTLY MICROVESICULAR - [...] OR MALIGNANCY Signing Pathologist Direct Phone Line: [phone] CPT Code(s) 72115 [facility] [id number] [facility] [id number] CLINICAL HISTORY Acute cholecystitis [facility] SPECIMEN SOURCE A. Gallbladder. B. Liver [facility] biopsy [facility] GROSS DESCRIPTION Specimen A: Received fresh labeled "gallbladder" is an 11.5 x 5.0 x 3.5 cm focally disrupted gallbladder. The serosal surface is purple-perera to carrizales-white, dusky and exhibits cautery artifact on the hepa [facility] tic surface. The lumen contains yellow-green to red mucoid bile and multiple irregular, yellow-green to black, multifaceted calculi ranging in size from 0.3 cm to 2.0 cm in greatest dimension. The [facility] al surface is yellow-green to red, velvety and glistening. The wall measures up to 0.5 cm in maximum thickness. Section code: A1, parallel cystic duct resection margin and one intact cystic duct lymph node; A2-A3, airline security representative sections of gallbladder. Specimen B: Received in formalin labeled "biopsy, liver" are two light-perera cores of soft tissue measuring 2.0 cm and 2.3 cm in length, entirely submitted in cassette B1. DB/ew DB/ew MICROSCOPIC DESCRIPTION Performed. [facility] Specimen Tissue - Gallbladder Performing Organization Address City/[facility] Phone Number [address] [address] [phone] CENTER Type and screen, automated (04/12/2018 6:20 AM CDT) ABO/RH AUTOMATED (BEAKER) O POSITIVE [facility] Ab Scrn NEGATIVE [facility] Specimen Blood Performing Organization Address City/[facility] Phone Number [address] [address] Lactic acid, venous, whole blood (04/12/2018 12:46 AM CDT) Lactate, Venous 0.8Comment: Specimen 0.5 - 2.2 mmol/L [facility] slightly hemolyzed [facility] Specimen Blood - Arm, Right Narrative Performed At [facility] Effective 12/12/2015: Units/Reference Range Change New: 0.5-2.2 mmol/LPrevious: 5-20 mg/dL Performing Organization Address [facility] Phone Number [address] [address] [phone] CENTER B-type Natriuretic Factor (BNP) (04/12/2018 12:46 AM CDT) BNP 141 (H) 0 - 100 pg/mL [facility] Specimen Blood - Arm, Right Performing Organization Address [facility]/Zipcode Phone Number [facility] [address] [place] [address] [phone] CENTER XR chest 1 view portable / bedside (04/11/2018 11:00 PM CDT) Narrative Performed At FINAL REPORT RIS History: Shortness of breath. Comparison: None. Findings: A single view of the chest is submitted. The cardiomediastinal contours are unremarkable. There is no focal consolidation, pneumothorax, large pleural effusion or evidence of overt pulmonary edema. There is no acute bony abnormality. Impression: No acute abnormality. Signed: Paco Montelongo MD Report Verified Date/Time:04/11/2018 23:26:54 Reading Location: [address] Reading Room Procedure Note Interface, External Ris In - 04/11/2018 11:29 PM CDT FINAL REPORT History: Shortness of breath. Comparison: None. Findings: A single view of the chest is submitted. The cardiomediastinal contours are unremarkable. There is no focal consolidation, pneumothorax, large pleural effusion or evidence of overt pulmonary edema. There is no acute bony abnormality. Impression: No acute abnormality. Signed: Paco Montelongo MD Report Verified Date/Time: 04/11/2018 23:26:54 Reading Location: [address] Reading Room Performing Organization Address City/[facility] Phone Number RIS Lipase (04/11/2018 6:04 PM CDT) Lipase 15 8 - 78 U/L [facility] Specimen Blood - Arm, Left Performing Organization Address [facility]/Zipcode Phone Number [facility] [address] [place] [address] CENTER Lipid panel (04/11/2018 6:04 PM CDT) Triglycerides 126Comment: Specimen slightly mg/dL [facility] Cholesterol 177Comment: Specimen slightly mg/dL [facility] HDL 54 mg/dL [facility] LDL Calculated 98 mg/dL [facility] Specimen Blood - Arm, Left Narrative Performed At [facility] Triglyceride Reference Range: Low Risk <150 [id number] High Risk 200-499 Very High Risk>=500 Cholesterol Reference Range: Low Risk <200 [id number] High Risk>240 HDL Cholesterol Reference Range: Low Risk >=60 High Risk <40 LDL Cholesterol Reference Range: Optimal<100 Near [id number] Very High >=190 Performing Organization Address City/State/Zipcode Phone Number [facility] [address] [place] [address] CENTER after 08/04/2017 Insurance Payer Benefit Plan / Group Subscriber ID Type Phone Address MEDICAID - MEDICAID MEDICAID [employer] xxxxxxxxx Medicaid [employer] C[employer] Non-Contracted Advance Directives For more information, please contact:[address] [phone] Code Status Date Activated Date Inactivated Comments Full Code 04/11/2018 3:28 PM 04/16/2018 5:09 PM This code status was determined by: Patient
--- NOTE | 2018-08-05 11:14 | EDPHYS ---
Physician Documentation [facility] Name: Rachel Camacho Age: 63 yrs Sex: Female : 1955 Arrival Date: 08/05/2018 Time: 09:35 Bed 19 Private MD: Willie Voss ED Physician Ted Barahona HPI: 08/05 11:11 This 63 yrs old Female presents to ER via Ambulatory with complaints of Sore snw Throat, Sinus Congestion. 11:11 The patient presents with sore throat. Onset: The symptoms/episode began/occurred snw suddenly, yesterday. Severity of symptoms: At their worst the symptoms were moderate, in the emergency department the symptoms are unchanged. Associated signs and symptoms: Pertinent positives: cough, scratchy throat, congestion. The patient has experienced similar episodes in the past, multiple times. The patient has not recently seen a physician. Historical: - Allergies: 09:49 Codeine; hb 09:49 Hydrocodone-Acetaminophen; hb 09:49 Theophylline; hb 09:49 Tylenol-Codeine #3; hb - Home Meds: 09:49 aspirin 81 mg Oral chew 1 tab once daily [Active]; atvorstatin 40mg at bedtime hb [Active]; fenofibrate 48 mg Oral 1 tab once daily [Active]; Lantus 30 units Sub-Q twice a day [Active]; lisinopril 10 mg Oral tab 1 tab once daily [Active]; Nexium 40 mg Oral cpDR 1 cap 2 times per day [Active]; Novolog 100 unit/mL Sub-Q soln as needed [Active]; - PMHx: 09:50 Anxiety; Diabetes - IDDM; GERD; High Cholesterol; Hypertension; hb - PSHx: 09:50 left leg; Tubal ligation; hb - Immunization history:: Adult Immunizations up to date. - Social history:: Smoking status: Patient/guardian denies using tobacco. - Ebola Screening: : No symptoms or risks identified at this time. ROS: 11:10 Eyes: Negative for injury, pain, redness, and discharge. snw 11:10 Neck: Negative for injury, pain, and swelling, Cardiovascular: Negative for chest pain, palpitations, and edema. 11:10 Abdomen/GI: Negative for abdominal pain, nausea, vomiting, diarrhea, and constipation, Back: Negative for injury and pain, : Negative for injury, bleeding, discharge, and swelling, MS/Extremity: Negative for injury and deformity, Skin: Negative for injury, rash, and discoloration. 11:10 Constitutional: Positive for body aches, malaise. 11:10 ENT: Positive for sinus congestion. 11:10 Respiratory: Positive for cough. 11:10 Neuro: Positive for headache, similar to sinusitis symptoms in the past. Exam: 11:07 Head/Face: Normocephalic, atraumatic. Eyes: Pupils equal round and reactive to light, snw extra-ocular motions intact. Lids and lashes normal. Conjunctiva and sclera are non-icteric and not injected. Cornea within normal limits. Periorbital areas with no swelling, redness, or edema. 11:07 Neck: Trachea midline, no thyromegaly or masses palpated, and no cervical lymphadenopathy. Supple, full range of motion without nuchal rigidity, or vertebral point tenderness. No Meningismus. Chest/axilla: Normal chest wall appearance and motion. Nontender with no deformity. No lesions are appreciated. Cardiovascular: Regular rate and rhythm with a normal S1 and S2. No gallops, murmurs, or rubs. Normal PMI, no JVD. No pulse deficits. Respiratory: Lungs have equal breath sounds bilaterally, wheezes to auscultation. No rales, rhonchi noted. No increased work of breathing, no retractions or nasal flaring. Abdomen/GI: Soft, non-tender, with normal bowel sounds. No distension or tympany. No guarding or rebound. No evidence of tenderness throughout. Back: No spinal tenderness. No costovertebral tenderness. Full range of motion. Skin: Warm, dry with normal turgor. Normal color with no rashes, no lesions, and no evidence of cellulitis. Neuro: Awake and alert, GCS 15, oriented to person, place, time, and situation. Cranial nerves II-XII grossly intact. Motor strength 5/5 in all extremities. Sensory grossly intact. Cerebellar exam normal. Normal gait. Psych: Awake, alert, with orientation to person, place and time. Behavior, mood, and affect are within normal limits. 11:07 Constitutional: The patient appears alert, awake, uncomfortable. 11:07 ENT: External ear(s): are unremarkable, Ear canal(s): are normal, TM's: are normal, Nose: Nasal mucosa: edematous, Mouth: is normal, Posterior pharynx: erythema, that is mild, Voice: is hoarse. 11:07 Musculoskeletal/extremity: Extremities: bilat lower extremities with mild edema, Circulation is intact in all extremities. Sensation intact. Weight bearing: able to fully bear weight. Vital Signs: 09:48 BP 168 / 79; Pulse 89; Resp 16; Temp 98(O); Pulse Ox 98% on R/A; Pain 10/10; hb 10:57 BP 185 / 78 LA Sitting (auto/lg); Pulse 80; Resp 16; Pulse Ox 98% on R/A; ag MDM: 10:10 Patient medically screened. snw 11:05 Data reviewed: vital signs, nurses notes. Data interpreted: Pulse oximetry: on room air snw is 98 %. Interpretation: normal. Counseling: I had a detailed discussion with the patient and/or guardian regarding: the historical points, exam findings, and any diagnostic results supporting the discharge/admit diagnosis, the presence of at least one elevated blood pressure reading (>120/80) during this emergency department visit, lab results, the need for outpatient follow up, to return to the emergency department if symptoms worsen or persist or if there are any questions or concerns that arise at home. ED course: Pt's Mom on hospice, requests IM abx for fear of getting Mom ill. Face mask and hand hygiene encouraged. 08/05 09:52 Order name: Flu; Complete Time: 10:46 snw 08/05 09:52 Order name: Strep; Complete Time: 10:30 snw 08/05 10:30 Order name: Throat Culture EDMS Administered Medications: 11:20 Drug: Bicillin L-A 2.4 million units {Note: 2mL in the left gluteus, 2mL in the right em gluteus .} Route: IM; Site: Other; 11:38 Follow up: Response: No adverse reaction em Disposition: 08/05/18 11:13 Discharged to Home. Impression: Acute sinusitis. - Condition is Stable. - Discharge Instructions: Sinusitis, Adult. - Medication Reconciliation Form, Thank You Letter, Antibiotic Education, Prescription Opioid Use form. - Follow up: Private Physician; When: 2 - 3 days; Reason: Recheck today's complaints, Continuance of care, Re-evaluation by your physician. Follow up: Emergency Department; When: As needed; Reason: Worsening of condition. Addendum: 08/07/2018 15:25 Co-signature as Attending Physician, Ted Barahona MD. m a2 Signatures: Dispatcher [employer] EDMS Yasmin Crenshaw, NARRATIVE WRITER-C NARRATIVE WRITER-Csnw Himanshu Bernstein, NETWORK LEAD NETWORK LEAD em Usha Ferrell, RN RN Ted Barahona MD MD ut2 Corrections: (The following items were deleted from the chart) 08/05 11:39 11:13 08/05/2018 11:13 Discharged to Home. Impression: Acute sinusitis. Condition is em Stable. Forms are Medication Reconciliation Form, Thank You Letter, Antibiotic Education, Prescription Opioid Use. Follow up: Private Physician; When: 2 - 3 days; Reason: Recheck today's complaints, Continuance of care, Re-evaluation by your physician. Follow up: Emergency Department; When: As needed; Reason: Worsening of condition. snw
--- NOTE | 2018-08-05 11:14 | ER ---
Nurse's Notes [facility] Name: Rachel Camacho Age: 63 yrs Sex: Female : 1955 Arrival Date: 08/05/2018 Time: 09:35 Bed 19 Private MD: Willie Voss Diagnosis: Acute sinusitis Presentation: 08/05 09:47 Presenting complaint: Patient states: Sinus congestion and headache x 2 days, sore hb throat upon waking today. Denies fever/cough. Transition of care: patient was not received from another setting of care. Onset of symptoms was August 04, 2018. Risk Assessment: Do you want to hurt yourself or someone else? Patient reports no desire to harm self or others. Care prior to arrival: None. 09:47 Method Of Arrival: Ambulatory hb 09:47 Acuity: LUDY 4 hb 10:44 Initial Sepsis Screen: Does the patient meet any 2 criteria? No. Patient's initial em sepsis screen is negative. Does the patient have a suspected source of infection? No. Patient's initial sepsis screen is negative. Historical: - Allergies: 09:49 Codeine; hb 09:49 Hydrocodone-Acetaminophen; hb 09:49 Theophylline; hb 09:49 Tylenol-Codeine #3; hb - Home Meds: 09:49 aspirin 81 mg Oral chew 1 tab once daily [Active]; atvorstatin 40mg at bedtime hb [Active]; fenofibrate 48 mg Oral 1 tab once daily [Active]; Lantus 30 units Sub-Q twice a day [Active]; lisinopril 10 mg Oral tab 1 tab once daily [Active]; Nexium 40 mg Oral cpDR 1 cap 2 times per day [Active]; Novolog 100 unit/mL Sub-Q soln as needed [Active]; - PMHx: 09:50 Anxiety; Diabetes - IDDM; GERD; High Cholesterol; Hypertension; hb - PSHx: 09:50 left leg; Tubal ligation; hb - Immunization history:: Adult Immunizations up to date. - Social history:: Smoking status: Patient/guardian denies using tobacco. - Ebola Screening: : No symptoms or risks identified at this time. Screenin:50 Abuse screen: Denies threats or abuse. Denies injuries from another. Nutritional hb screening: No deficits noted. Tuberculosis screening: No symptoms or risk factors identified. Fall Risk None identified. Assessment: 10:10 General: Appears in no apparent distress. uncomfortable, Behavior is calm, cooperative, em Reports feeling ill for 1-2 days, Denies fever. Pain: Complains of pain in right eye and left eye Pain currently is 9 out of 10 on a pain scale. Pain began 1 day ago. Neuro: Level of Consciousness is awake, alert, obeys commands, Oriented to person, place, time, situation, Lobster Fisherman are equal bilaterally Moves all extremities. Speech is normal. Cardiovascular: Capillary refill < 3 seconds Patient's skin is warm and dry. Respiratory: Airway is patent Respiratory effort is even, unlabored, Breath sounds are clear bilaterally. GI: Patient currently denies nausea, vomiting. : No signs and/or symptoms were reported regarding the genitourinary system. EENT: Nares are clear Oral mucosa is moist. Throat is clear is pink. Derm: Skin is intact, is healthy with good turgor, Skin is pink, warm \T\ dry. Musculoskeletal: Range of motion: intact in all extremities. 10:20 Reassessment: I agree with previous assessment. hb 11:21 Reassessment: Patient appears in no apparent distress at this time. Patient and/or em family updated on plan of care and expected duration. Pain level reassessed. Patient is alert, oriented x 3, equal unlabored respirations, skin warm/dry/pink. pending shot time, pt will be discharged afterwards. Vital Signs: 09:48 BP 168 / 79; Pulse 89; Resp 16; Temp 98(O); Pulse Ox 98% on R/A; Pain 10/10; hb 10:57 BP 185 / 78 LA Sitting (auto/lg); Pulse 80; Resp 16; Pulse Ox 98% on R/A; ag ED Course: 09:35 Patient arrived in ED. mr 09:35 Willie Voss MD is Private Physician. mr 09:48 Triage completed. hb 09:50 Arm band placed on. hb 09:51 Yasmin Crenshaw FNP-C is PHCP. snw 09:51 Ted Barahona MD is Attending Physician. snw 10:00 Himanshu Bernstein LVN is Primary Nurse. em 10:10 Placed in gown. Bed in low position. Call light in reach. Side rails up X2. em 10:32 Throat Culture Sent. em 10:32 Flu Sent. em 11:38 No provider procedures requiring assistance completed. Patient did not have IV access em during this emergency room visit. Administered Medications: 11:20 Drug: Bicillin L-A 2.4 million units {Note: 2mL in the left gluteus, 2mL in the right em gluteus .} Route: IM; Site: Other; 11:38 Follow up: Response: No adverse reaction em Outcome: 11:13 Discharge ordered by MD. garvin 11:38 Discharged to home ambulatory. em 11:38 Condition: good 11:38 Discharge instructions given to patient, Instructed on discharge instructions, follow up and referral plans. Demonstrated understanding of instructions, follow-up care. 11:39 Patient left the ED. em Signatures: Yasmin Crenshaw, PETROLEUM ENGINEER-C PETROLEUM ENGINEER-Csnw Oly Pollard AmandeepHimanshu, JIGSAW OPERATOR JIGSAW OPERATOR em Jacklyn Morton Heather, JOCELINE RN hb
[2018-08-05] MEDS ORDERED: PEN G BENZ LA 2.4 MU/4 ML SYRINGE IM ONE (11:21)
== END 2018-08-05 11:39 | disposition home or self-care (01) ==
LOC: ER 09:33
DX: J01.90 Acute sinusitis, unspecified (principal); E11.9 Type 2 diabetes mellitus without complications; I10 Essential (primary) hypertension; K21.9 Gastro-esophageal reflux disease without esophagitis; F41.9 Anxiety disorder, unspecified; Z79.82 Long term (current) use of aspirin; Z79.4 Long term (current) use of insulin; Z79.899 Other long term (current) drug therapy
CPT/HCPCS: 87070; 87081; 87804; 96372; 99283; J0561

== ENCOUNTER 2020-04-27 09:18 | Emergency (ER) | payer OTHER ==
--- OUTSIDE RECORDS SUMMARY | 2020-04-27 09:20 | XMS REPORT | Continuity of Care Document ---
:1955 Author Organization [facility] Team Providers Name Role Phone [facility] Unavailable Un available Problems Problem Status Onset Classification Date Comments Sourc e Date Reported Anxiety (finding) Active Problem 01/11/2019 [facility] Diabetes mellitus Active Problem 01/11/2019 [facility] Gastroesophageal reflux Active Problem 01/11/2019 [facility] disease [facility]disorder[facility] Hypercholesterolemia Active Problem 01/11/2019 [facility] Hypertensive disorder, Active Problem 01/11/2019 [facility]disorder[facility] Depressive disorder Active Problem 01/11/2019 ([facility] Simple obesity Active Problem 01/11/2019 [facility] Medications No Data Provided for This Section Allergies, Adverse Reactions, Alerts Substance Category Reaction Severity Reaction Status Date Comments S ource type Reported codeine Assertion Drug Active allergy [facility] theophylline Assertion Propensity Active MH to adverse Medic al reactions Group to substance hydrocodone Assertion Drug Active allergy [facility] Immunizations No Data Provided for This Section Results No Data Provided for This Section Pathology Reports No Data Provided for This Section Diagnostic Reports No Data Provided for This Section Consultation Notes No Data Provided for This Section Discharge Summaries No Data Provided for This Section History and Physicals No Data Provided for This Section Vital Signs Vital Sign Value Date Comments Source BMI Calculated 39.99 12/02/2018 [facility] Weight 118.295 12/02/2018 [facility] Height 172 cm 12/02/2018 [facility] Encounters Location Location Encounter Encounter Reason Attending ADM MI Stat us Source Details Type Number For Provider Date Date Visit Outpatient [id number] SURAJ 04/02 Active [facility] [place] [facility] [id number] SURAJ 05/14 Active [facility] [place] Outpatient [id number] SURAJ 05/14 Active [facility] [place] Outpatient [id number] SURAJ 06/24 Active [facility] REYES /2018 [facility] Ambulatory [id number] Suraj 06/24 06/24 [facility] [place] Out[facility] [id number] Suraj 12/02 [facility] [id number] Suraj 12/02 12/03 [facility] [place] Procedures Procedure Code Date Perfomer Comments Source Colonoscopy [id number] 04/22/20 [facility] Esophagogastroduodenoscopy [id number] 04/22/20 [facility] Bilateral tubal ligation [id number] [facility] Assessment and Plan No Data Provided for This Section Plan of Care No Data Provided for This Section Social History Social History Date Source Social History TypeResponse 12/02/2018 [facility] Substance Abuse Use: None. Alcohol Never Smoking Status Former smoker; Type: Cigarettes; Exposur e to Tobacco Smoke None; Cigarette Smoking Last 365 Days No; Reg Smoking Cessation Counseling No; Tobacco use per day: 30; entered on: 12/02/18 Family History No Data Provided for This Section Advance Directives No Data Provided for This Section Functional Status No Data Provided for This Section
[2020-04-27 11:03] LABS: Absolute Lymphocytes (CBC) 0.9 K/uL (0.7-4.9); Basophils % 0.6 % (0-1.3); Hematocrit 40.1 % (36.0-45.0); Lymphocytes % 22.8 % (15.3-44.8); MPV 8.6 fL (7.6-11.3); RBC Red Blood Cell Count 4.81 M/uL (3.86-4.86)
[2020-04-27 11:10] LABS: Protime INR 1.01
[2020-04-27 11:25] LABS: ALT/SGPT 37 U/L (12-78); AST/SGOT 28 U/L (15-37); Albumin 3.3 g/dL (3.4-5.0); Alkaline Phosphatase 101 U/L (45-117); BUN Blood Urea Nitrogen 15 mg/dL (7-18); Bicarbonate 25 mmol/L (21-32); Bilirubin Direct < 0.1 mg/dL (0-0.2); Bilirubin Total 0.3 mg/dL (0.2-1.0); Glucose Level 202 mg/dL (74-106); Magnesium 1.9 mg/dL (1.8-2.4); NT PRO-BNP 15 pg/mL (<125); Potassium 3.8 mmol/L (3.5-5.1); Protein, Total 7.4 g/dL (6.4-8.2); Sodium Level 139 mmol/L (136-145); Troponin (Emerg Dept Use Only) < 0.02 ng/mL (0.0-0.045)
--- NOTE | 2020-04-27 11:53 | RAD REPORT ---
EXAM DESCRIPTION: RAD - Chest Single View - 04/27/2020 11:08 am CLINICAL HISTORY: HTN COMPARISON: Portable April 2018 TECHNIQUE: AP portable chest image was obtained 04/27/2020 11:08 am . FINDINGS: Lungs are clear. Lung volumes are low which accentuates the lung markings. Body habitus co ntributes as well. Trachea is midline. Heart and vasculature are normal. No measurable pleural effusi on and no pneumothorax. No acute bony abnormality seen. No acute aortic findings suspected. IMPRESSION: No acute cardiopulmonary process. No significant interval change.
--- NOTE | 2020-04-27 12:54 | EDPHYS ---
Physician Documentation [facility] Name: Rachel Camacho Age: 65 yrs Sex: Female : 1955 Arrival Date: 04/27/2020 Time: 09:23 Bed 5 Private MD: ED Physician Vik Keys HPI: 04/27 19:28 This 65 yrs old Female presents to ER via Wheelchair with complaints of High kdr Blood Pressure, Dizziness. 19:28 The patient has elevated blood pressure and discovered this at home. Onset: The kdr symptoms/episode began/occurred suddenly, this morning. Modifying factors: The symptoms are aggravated by Stress. Associated signs and symptoms: Pertinent positives: lightheadedness, nausea, weakness, Pertinent negatives: chest pain, dizziness, dyspnea, headache, visual changes, vomiting. Severity of symptoms: At its worst the blood pressure was severe, just prior to arrival, in the emergency department the blood pressure is improved, moderately. The patient has not experienced similar symptoms in the past. The patient has not recently seen a physician. The patient has a lot of stress related to recent family deaths. Historical: - Allergies: 09:30 Codeine; sv 09:30 Theophylline; sv 09:30 Hydrocodone; sv - PMHx: 09:30 Anxiety; Diabetes - IDDM; GERD; High Cholesterol; Hypertension; sv - PSHx: 09:30 Tubal ligation; left leg; sv - Immunization history:: Adult Immunizations. - Social history:: Smoking status: . ROS: 19:28 Constitutional: Negative for fever, chills, and weight loss, Eyes: Negative for injury, kdr pain, redness, and discharge, ENT: Negative for injury, pain, and discharge, Neck: Negative for injury, pain, and swelling, Cardiovascular: Negative for chest pain, palpitations, and edema, Respiratory: Negative for shortness of breath, cough, wheezing, and pleuritic chest pain, Abdomen/GI: Negative for abdominal pain, nausea, vomiting, diarrhea, and constipation, Back: Negative for injury and pain, : Negative for injury, bleeding, discharge, and swelling, MS/Extremity: Negative for injury and deformity, Skin: Negative for injury, rash, and discoloration, Allergy/Immunology: Negative for hives, rash, and allergies, Endocrine: Negative for neck swelling, polydipsia, polyuria, polyphagia, and marked weight changes, Hematologic/Lymphatic: Negative for swollen nodes, abnormal bleeding, and unusual bruising. 19:28 Neuro: Positive for dizziness, tinnitus, weakness, Negative for altered mental status, gait disturbance, headache, hearing loss, loss of consciousness, seizure activity, speech changes, syncope, near syncope, tingling, tremor. 19:28 Psych: Positive for anxiety. Exam: 19:28 Constitutional: This is a well developed, well nourished patient who is awake, alert, kdr and in no acute distress. Head/Face: Normocephalic, atraumatic. Eyes: Pupils equal round and reactive to light, extra-ocular motions intact. Lids and lashes normal. Conjunctiva and sclera are non-icteric and not injected. Cornea within normal limits. Periorbital areas with no swelling, redness, or edema. Neck: Trachea midline, no thyromegaly or masses palpated, and no cervical lymphadenopathy. Supple, full range of motion without nuchal rigidity, or vertebral point tenderness. No Meningismus. Chest/axilla: Normal chest wall appearance and motion. Nontender with no deformity. No lesions are appreciated. Cardiovascular: Regular rate and rhythm with a normal S1 and S2. No gallops, murmurs, or rubs. Normal PMI, no JVD. No pulse deficits. Respiratory: Lungs have equal breath sounds bilaterally, clear to auscultation and percussion. No rales, rhonchi or wheezes noted. No increased work of breathing, no retractions or nasal flaring. Abdomen/GI: Soft, non-tender, with normal bowel sounds. No distension or tympany. No guarding or rebound. No evidence of tenderness throughout. Back: No spinal tenderness. No costovertebral tenderness. Full range of motion. Skin: Warm, dry with normal turgor. Normal color with no rashes, no lesions, and no evidence of cellulitis. MS/ Extremity: Pulses equal, no cyanosis. Neurovascular intact. Full, normal range of motion. Neuro: Awake and alert, GCS 15, oriented to person, place, time, and situation. Cranial nerves II-XII grossly intact. Motor strength 5/5 in all extremities. Sensory grossly intact. Cerebellar exam normal. Normal gait. Psych: Awake, alert, with orientation to person, place and time. Behavior, mood, and affect are within normal limits. 20:08 ECG was reviewed by the Attending Physician. kdr Vital Signs: 09:30 BP 181 / 84; Pulse 96; Resp 20; Temp 98(TE); Pulse Ox 100% on R/A; Weight 120.2 kg; sv Height 5 ft. 8 in. (172.72 cm); Pain 0/10; 10:30 BP 161 / 69; Pulse 93; Resp 14; Pulse Ox 98% ; bp 11:38 BP 167 / 77; Pulse 102; Resp 10; Pulse Ox 99% ; bp 13:09 BP 136 / 56; Pulse 89; Resp 16; Pulse Ox 98% on R/A; Pain 0/10; iw 09:30 Body Mass Index 40.29 (120.20 kg, 172.72 cm) sv MDM: 12:53 Patient medically screened. kdr 19:28 Data reviewed: vital signs, nurses notes, lab test result(s), radiologic studies. kdr Counseling: I had a detailed discussion with the patient and/or guardian regarding: the historical points, exam findings, and any diagnostic results supporting the discharge/admit diagnosis, lab results, radiology results, the need for outpatient follow up. 04/27 10:11 Order name: Basic Metabolic Panel; Complete Time: 11:43 [facility] 04/27 10:11 Order name: CBC with Diff; Complete Time: 11:43 [facility] 04/27 10:11 Order name: LFT's; Complete Time: 11:43 [facility] 04/27 10:11 Order name: Magnesium; Complete Time: 11:43 [facility] 04/27 10:11 Order name: NT PRO-BNP; Complete Time: 11:43 [facility] 04/27 10:11 Order name: PT-INR; Complete Time: 11:43 [facility] 04/27 10:11 Order name: Troponin (emerg Dept Use Only); Complete Time: 11:43 [facility] 04/27 10:11 Order name: XRAY Chest (1 view) [facility] 04/27 10:11 Order name: EKG; Complete Time: 10:11 [facility] 04/27 10:11 Order name: Cardiac monitoring; Complete Time: 10:50 [facility] 04/27 10:11 Order name: EKG - Nurse/Tech; Complete Time: 10:51 [facility] 04/27 10:11 Order name: IV Saline Lock; Complete Time: 10:51 [facility] 04/27 10:11 Order name: Labs collected and sent; Complete Time: 10:51 kdr 04/27 10:11 Order name: O2 Per Protocol; Complete Time: : kdr 04/27 10:11 Order name: O2 Sat Monitoring; Complete Time: 10: [facility] EC:08 Rate is 84 beats/min. Rhythm is regular, Normal Sinus Rhythm with No ectopy. QRS [place] kdr is Normal. [place] interval is normal. QRS interval is normal. QT interval is normal. Clinical impression: Normal ECG. Administered Medications: No medications were administered Disposition: 04/27/20 12:53 Discharged to Home. Impression: Hypertensive heart disease, Stress, not elsewhere classified. - Condition is Stable. - Discharge Instructions: Hypertension, [id number], Stress and Stress Management. - Medication Reconciliation Form, Thank You Letter form. - Follow up: Private Physician; When: 1 - 2 days; Reason: If symptoms return, Further diagnostic work-up, Recheck today's complaints, Continuance of care, Re-evaluation by your physician. - Problem is new. - Symptoms are resolved. Signatures: Dispatcher [employer] EDTammie Jackson RN RN sv Vik Keys MD MD kdr Sybil Rodriguez RN RN iw Corrections: (The following items were deleted from the chart) 13:09 12:53 04/27/2020 12:53 Discharged to Home. Impression: Hypertensive heart disease; iw Stress, not elsewhere classified. Condition is Stable. Forms are Medication Reconciliation Form, Thank You Letter, Antibiotic Education, Prescription Opioid Use. Follow up: Private Physician; When: 1 - 2 days; Reason: If symptoms return, Further diagnostic work-up, Recheck today's complaints, Continuance of care, Re-evaluation by your physician. Problem is new. Symptoms are resolved. kdr
--- NOTE | 2020-04-27 12:54 | ER ---
Nurse's Notes [facility] Name: Rachel Camacho Age: 65 yrs Sex: Female : 1955 Arrival Date: 04/27/2020 Time: :23 Bed 5 Private MD: Diagnosis: Hypertensive heart disease;Stress, not elsewhere classified Presentation: 04/27 09:28 Chief complaint: Patient states: dizziness, ringing in ears, HTN 236/109 that started sv today. Reports she has been stressed and has not taken her medication today. Coronavirus screen: Client denies travel out of the [place] in the last 14 days. At this time, the client does not indicate any symptoms associated with coronavirus-19. Ebola Screen: No symptoms or risks identified at this time. Risk Assessment: Do you want to hurt yourself or someone else? Patient reports no desire to harm self or others. Onset of symptoms was April 27, 2020. 09: Method Of Arrival: Wheelchair sv 09:28 Acuity: LUDY 2 sv 09:30 Initial Sepsis Screen: Does the patient meet any 2 criteria? No. Patient's initial sv sepsis screen is negative. Does the patient have a suspected source of infection? No. Patient's initial sepsis screen is negative. Triage Assessment: 09:30 General: Appears in no apparent distress. uncomfortable, Behavior is cooperative, bp appropriate for age, anxious. Pain: Denies pain. EENT: No deficits noted. Neuro: Reports dizziness. Cardiovascular: No deficits noted. Respiratory: No deficits noted. GI: No signs and/or symptoms were reported involving the gastrointestinal system. : No signs and/or symptoms were reported regarding the genitourinary system. Derm: No deficits noted. Musculoskeletal: No deficits noted. Historical: - Allergies: 09:30 Codeine; sv 09:30 Theophylline; sv 09:30 Hydrocodone; sv - PMHx: 09:30 Anxiety; Diabetes - IDDM; GERD; High Cholesterol; Hypertension; sv - PSHx: 09:30 Tubal ligation; left leg; sv - Immunization history:: Adult Immunizations. - Social history:: Smoking status: . Screenin:30 Abuse screen: Denies threats or abuse. Denies injuries from another. Nutritional bp screening: No deficits noted. Tuberculosis screening: No symptoms or risk factors identified. Fall Risk None identified. Assessment: 09:30 General: SEE TRIAGE NOTE. bp 10:30 Reassessment: ALL CURRENT ORDERS COMPLETED, RESULTS PENDING. bp Vital Signs: 09:30 BP 181 / 84; Pulse 96; Resp 20; Temp 98(TE); Pulse Ox 100% on R/A; Weight 120.2 kg; sv Height 5 ft. 8 in. (172.72 cm); Pain 0/10; 10:30 BP 161 / 69; Pulse 93; Resp 14; Pulse Ox 98% ; bp 11:38 BP 167 / 77; Pulse 102; Resp 10; Pulse Ox 99% ; bp 13:09 BP 136 / 56; Pulse 89; Resp 16; Pulse Ox 98% on R/A; Pain 0/10; iw 09:30 Body Mass Index 40.29 (120.20 kg, 172.72 cm) sv ED Course: 09:23 Patient arrived in ED. mr 09:28 Arm band placed on. sv 09:29 Triage completed. sv 09:30 Patient has correct armband on for positive identification. Bed in low position. Call bp light in reach. Side rails up X2. 09:44 Buck Dooley, JOCELINE is Primary Nurse. bp 10:10 Vik Keys MD is Attending Physician. kdr 10:50 Inserted saline lock: 22 gauge in left forearm, using aseptic technique. Blood bp collected. 11:08 XRAY Chest (1 view) In Process Unspecified. EDMS 11:08 X-ray completed. Portable x-ray completed in exam room. Patient tolerated procedure mh1 well. 12:01 Placed in gown. Warm blanket given. Pillow given. registered client associate on. Pulse ox on. NIBP mh5 on. 12:01 EKG done, by ED staff, reviewed by Vik Keys MD. mh5 13:09 No provider procedures requiring assistance completed. IV discontinued, intact, iw bleeding controlled, No redness/swelling at site. Pressure dressing applied. Administered Medications: No medications were administered Outcome: 12:53 Discharge ordered by . kdr 13:09 Discharged to home ambulatory. iw 13:09 Condition: good 13:09 Discharge instructions given to patient, Instructed on discharge instructions, follow up and referral plans. Demonstrated understanding of instructions, follow-up care. 13:09 Patient left the ED. iw Signatures: Dispatcher [employer] EDMS Thai Leónhanie, JOCELINE CAR Vik Keys MD MD [facility] Pollard Oly mr ArashTonia 1 Sybil Rodriguez RN RN Marjan Danielle [facility] Buck Dooley RN RN bp Corrections: (The following items were deleted from the chart) : 09:28 Acuity: LUDY 3 sv sv 09:32 09:30 Pulse 96bpm; Resp 20bpm; Pulse Ox 100% RA; Temp 98F Temporal; 120.2 kg; Height 5 sv ft. 8 in.; BMI: 40.2; sv
[2020-04-27 18:08] VITALS: TEMP 98
[2020-04-27 18:11] VITALS: BP 136/56; O2SAT 98
== END 2020-04-27 13:09 | disposition home or self-care (01) ==
LOC: ER 09:18
DX: I11.9 Hypertensive heart disease without heart failure (principal); Z73.3 Stress, not elsewhere classified; I10 Essential (primary) hypertension; Z88.5 Allergy status to narcotic agent; Z88.8 Allergy status to other drugs, medicaments and biological substances
CPT/HCPCS: 36415; 71045; 80048; 80076; 83735; 83880; 84484; 85025; 85610; 93005; 99284

== ENCOUNTER 2020-06-20 18:30 | Emergency (ER) | payer OTHER ==
--- OUTSIDE RECORDS SUMMARY | 2020-06-20 18:32 | XMS REPORT | Clinical Summary ---
:1955 Author Organization [facility] Address [address] [place] [address] Care Team Providers Name Role Phone MD Shanika Primary Care Provider Allergies Active Allergy Reactions Severity Noted Date Comments Acetaminophen-Codeine Anxiety Low 02/21/2014 Alprazolam 10/10/2005 Codeine Palpitations Low 10/10/2005 Hydrocodone Anxiety Low 02/21/2014 Hydrocodone-Acetaminophen 10/10/2005 Iodine And Iodide Containing Products Hives 11/2005 Theophylline 10/10/2005 Medications Medication Sig Dispensed Refills Start Date End Date Status traMADol (ULTRAM) Take 1 tablet (50 mg 30 tablet 0 04/16/2018 Active 50 mg tablet total) by mouth every 8 (eight) hours as needed for Pain for up to 30 doses. Max Daily Amount: 150 mg atorvastatin Take 40 mg by mouth 0 06/15/2015 Active (LIPITOR) 40 MG nightly. tablet esomeprazole Take 40 mg by mouth 2 9 03/16/2018 Active (NEXIUM) 40 MG (two) times daily. capsule fenofibrate Take 54 mg by mouth 0 02/15/2018 Active (LOFIBRA) 54 MG daily. tablet LANTUS U-100 Inject 30 Units 3 03/18/2018 Active INSULIN 100 unit/mL subcutaneously 2 injection (two) times daily. Active Problems Problem Noted Date Hepatic steatosis 04/16/2018 Normocytic anemia 04/15/2018 Hypertension 04/12/2018 Hyperlipidemia 04/12/2018 Type 2 diabetes mellitus 04/12/2018 Obstructive sleep apnea 04/12/2018 GERD (gastroesophageal reflux disease) 04/12/2018 Class 2 obesity in adult 04/12/2018 Acute gangrenous cholecystitis s/p lap toma (04/12) 09/2017 Social History Tobacco Use Types Packs/Day Years Used Date Never Assessed Sex Assigned at Date Recorded Not on file Last Filed Vital Signs Not on file Plan of Treatment Health Maintenance Due Date Last Done Comments BREAST CANCER SCREENING 1955 COLON CANCER SCREENING COLONOSCOPY 1955 PNEUMOCOCCAL VACCINE 0-64 YRS (1 of 1 - PPSV23) 1963 DIABETIC EYE EXAM 1967 DIABETIC FOOT EXAM 1967 URINE MICROALBUMIN 1967 CERVICAL CANCER SCREENING PAP ONLY (Age 21-65) 1978 HEMOGLOBIN A1C 10/11/2018 04/13/2018 INFLUENZA VACCINE (#1) 2020 LIPID PANEL 04/11/2021 04/11/2018 Results Not on fileafter 06/20/2019 Insurance Payer Benefit Plan / Subscriber ID Effective Phone Address T ype Group Dates MEDICAID - MEDICAID [id number] 2018-Pres Medi caid MEDICAID [employer] [place] [address] Advance Directives For more information, please contact: [phone] Code Status Date Activated Date Inactivated Comments Full Code 04/11/2018 3:28 PM 04/16/2018 5:09 PM This code status was determined by: Patient
--- OUTSIDE RECORDS SUMMARY | 2020-06-20 18:32 | XMS REPORT | Continuity of Care Document ---
:1955 Author Organization [facility] Care Team Providers Name Role Phone [facility] Unavailable Un available Problems Problem Status Onset [...] Location Location Encounter Encounter Reason Attending ADM [place] Stat us Source Details Type Number For Provider Date Date Visit Outpatient [id number] SURAJ 04/02 Active [facility] [place] [facility] [id number] SURAJ 05/14 Active [facility] [place] [facility] [id number] SURAJ 05/14 Active [facility] [place] [facility] [id number] SURAJ 06/24 Active [facility] /2018 [facility] [id number] Suraj 06/24 06/24 [facility]2017 [facility] [place] [facility] [id number] Suraj 12/02 [facility] [id number] Suraj 12/02 12/03 [facility] [place] Procedures Procedure Code Date Perfomer Comments Source Colonoscopy [id number] 04/22/20 [facility] Esophagogastroduodenoscopy [id number] 04/22/20 [facility] Bilateral tubal ligation [id number] [facility] Assessment and Plan No Data [...]
--- OUTSIDE RECORDS SUMMARY | 2020-06-20 18:33 | XMS REPORT | Continuity of Care Document ---
:1955 Author Organization [facility] t Address [address] [place] [address] Care Team Providers Name Role Phone Shanika HUNT Primary Care Physician Modesto HUNT, T Attending Clinician Demetrio HUNT Attending Clinician Brunilda Marie Attending Clinician LAURA Attending Clinician Unavailable LAURA Admitting Clinician Unavailable Problems Condition Condition Condition Status Onset Resolution Last Treating Co mments Source Name Details Category Date Date Treatment Clinician Date Hepatic Hepatic Disease Active [facility] steatosis steatosis 04-16ke s - 00:00: Medical 00 [place] Normocytic Normocytic Disease Active [facility] anemia anemia 04-15 - [facility] Hypertensi Hypertensi Disease Active [facility] on on 04-12 - 00:00: Medical 00 Center Hyperlipid Hyperlipid Disease Active [facility] emia emia 04-12 - 00:00: Medical 00 Center Type 2 Type [address] [facility] diabetes diabetes 04-12 - mellitus mellitus 00:00: Medica l 00 [place] Obstructiv Obstructiv Disease Active [facility] e sleep e sleep 04-12 - apnea apnea 00:00: Medical 00 Center GERD GERD Disease Active [facility] (gastroeso (gastroeso 04-12 kes - phageal phageal 00:00: Medical reflux reflux 00 [place] disease) disease) Class 2 Class [address] [facility] obesity in obesity in 04-12 kes - adult adult 00:00: Medical 00 [place] Acute Acute Disease Active [facility] gangrenous gangrenous 04-11 kes - cholecysti cholecysti 00:00: Me dical tis s/p tis s/p 00 [place] lap alfonzo lap alfonzo (04/12) (04/12) Anxiety Problem Active 2019-01-11 Dae lizabeth (finding) 13:44:32 l Anxiety Jackson (finding) Active Problem 01/11/2019 [facility] Group Diabetes Problem Active 2019-01-11 Mem oria mellitus 13:44:32 l (disorder) Diabetes He rmann mellitus (disorder) Active Problem 01/11/2019 Medical Group Hyperchole Problem Active 2019-01-11 M emoria sterolemia 13:44:32 l (disorder) Joesph n Hyperchole sterolemia (disorder) Active Problem 01/11/2019 Medical Group Depressive Problem Active 2019-01-11 M emoria disorder 13:44:32 l (disorder) Joesph n Depressive disorder (disorder) Active Problem 01/11/2019 Medical Group Simple Problem Active 2019-01-11 Memor ia obesity 13:44:32 l (disorder) Simple Herm ximena obesity (disorder) Active Problem 01/11/2019 [facility] Group Allergies, Adverse Reactions, Alerts Allergy Allergy Status Severity Reaction(s) Onset Inactive Treating Comm ents Source Name Type Date Date Clinician Acetamin Propensi Active [facility]xiety [facility] deine adverse 00:00: Medical reaction 00 Center s Hydrocod Propensi Active Anxiety [facility] one [facility] to 02-21 [facility] - adverse 00:00: Medical reaction 00 Center s Iodine Propensi Active Hives [facility] And ty to 10-11 [facility] - Iodide adverse 00:00: Medical Containi reaction 00 Center ng s Products Alprazol Propensi Active [facility] am ty to 10-10 [facility] - adverse 00:00: Medical reaction 00 Center s Codeine Propensi Active Palpitations 2006-[address] ty to 3- [facility] - adverse 00:00: Medical reaction 00 Center s Hydrocod Propensi Active [facility] one-Acet ty to 10-10 [facility] - aminophe adverse 00:00: Medical n reaction 00 Center s Theophyl Propensi Active [facility] line ty to 3 [facility] - adverse 00:00: Medical reaction 00 Center s codeine codeine Active Memoria l [facility] theophyl theophyl Active Memori a line line l Maximilian hydrocod hydrocod Active Memori a one one l Maximilian Social History Social Habit Start Date Stop Date Quantity Comments Source Sex Assigned At [facility] Social History 2018-12-02 2018-12-02 [facility] 14:05:16 14:05:16 Medications Ordered Filled Start Stop Current Ordering Indication Dosage Frequency Signature Comments Components Source Medication Medication Date Date Medication? Clinician (SIG) Name Name traMADol Yes 50mg Take [address] [facility] (ULTRAM) 50 9-07 tablet (50 Penny kes - mg tablet 00:00: mg total) Med ical 00 by mouth Center every 8 (eight) hours as needed for Pain for up to 30 doses. Max Daily Amount: 150 mg LANTUS Yes 30U Q.5D Inject [address] [facility] U-100 8-09 Units [facility] - INSULIN 100 00:00: subcutaneo Medical unit/mL 00 usly 2 Center injection (two) times daily. esomeprazol 0 Yes 40mg Q.5D Take [address] [facility] e (NEXIUM) 8-07 by mouth 2 [facility] es - 40 MG 00:00: (two) Medical capsule 00 times Center daily. fenofibrate Yes 54mg QD Take [address] [facility] [address] (LOFIBRA) 7-09 by mouth [facility] - 54 MG 00:00: daily. Medical tablet 00 [place] atorvastati 2014-08 Yes 40mg QD Take [address] [facility] n (LIPITOR) 1-06 by mouth Luke s - 40 MG 00:00: nightly. Medical tablet 00 [place] Vital Signs Vital Name Observation Time Observation Value Comments Source BMI Calculated 2018-12-02 14:03:00 Bernie Salvador Weight 2018-12-02 14:03:00 [facility] Height 2018-12-02 14:03:00 172 cm [facility] Procedures Procedure Date / Time Performing Clinician Source Performed Colonoscopy 2017-04-22 05:00:00 [facility] Esophagogastroduodenoscopy 2017-04-22 05:00:00 Tim Yao Bilateral tubal ligation Susan Yao Plan of Care Planned Activity Planned Date Details Comments Source Future Scheduled 2021-04-[address] [facility] - Test 00:00:00 (procedure) [code = Medical Center 62447074] Future Scheduled 2020-04-10 INFLUENZA VACCINE (#1) [facility] - Test 00:00:00 [code = INFLUENZA Medical Ce nter VACCINE (#1)] Future Scheduled 2018-10-[address] Penny kes - Test 00:00:00 measurement [facility] Center (procedure) [code = 42830133] Future Scheduled [address] [facility] es - Test 00:00:00 malignant neoplasm of [facility] cervix (procedure) [code = 988019137] Future Scheduled 1967 DIABETIC EYE EXAM [facility] - Test 00:00:00 [code = DIABETIC EYE Medical Center EXAM] Future Scheduled [address] [facility] - Test 00:00:00 examination Medical Center (regime/therapy) [code = 818125756] Future Scheduled 1967 Urine screening for [facility] - Test 00:00:00 protein (procedure) Medical Center [code = 652450313] Future Scheduled [address] [facility] - Test 00:00:00 0-64 YRS (1 of 1 - Medical C enter PPSV23) [code = PNEUMOCOCCAL VACCINE 0-64 YRS (1 of 1 - PPSV23)] Future Scheduled [address] [facility] - Test 00:00:00 [facility] breast (procedure) [code = 461640965] Future Scheduled [address] [facility] - Test 00:00:00 malignant neoplasm of [facility] colon (procedure) [code = 730877794] Encounters Start End Encounter Admission Attending Care Care Encounter Source Date/Time Date/Time Type Type Clinicians Facility Department ID 2019-11-30 2019-11-30 TANNER Begum [id number] 08:00:39 08:30:39 ne Visit Barbara Ribeiro [id number] [place] [id number] [id number] [facility] [address] [place] [address] 2019-08-30 2019-08-30 Office Demetrio WIWILLIAM [id number] 10:18:16 10:33:16 Visit [facility] [id number] Cancer [id number] [facility] [id number] [facility] 144 2018-12-02 2018-12-02 Outpatient Frank [facility] [id number] 09:00:00 23:59:59 Suraj Worley 04 2018-12-02 2018-12-02 Outpatient Marie, [facility] [id number] 09:00:00 23:59:59 Suraj Worley 04 2018-06-24 2018-06-24 Outpatient Frank [facility] [id number] 09:45:00 09:45:00 Suraj Worley 03 Results Test Description Test Time Test Comments Results Result Comments Source AFB CULTURE + SMEAR 2018-05-22 17:40:00 Test Item Value Reference Range Interpretation Comme nts CULTURE (BEAKER) (test code = 1095) No acid-fast bacilli isolated i n 42 days AFB SMEAR (BEAKER) (test code = 994) No acid fast bacilli seen FUNGUS CULTURE + [id number] 17:06:00 Test Item Value Reference Range Interpretation Comments CULTURE (BEAKER) (test No fungus isolated in code = 1095) 28 days FUNGUS SMEAR (BEAKER) No fungi seen (test code = 1406) ANAEROBIC [id number] 10:53:00 Test Item Value Reference Range Interpretation Comments CULTURE (BEAKER) (test A 3+ Cl ostridium perfringens code = 1095) SURGICALLY OBTAINED CULTURE + GRAM [id number] 15:28:00 Test Item Value Reference Range Interpretation Comments CULTURE A 2+ Coagulase ne gative (BEAKER) (test Staphylococcu s code = 1095) GRAM STAIN No WBCs RESULT (BEAKER) (test code = 1123) GRAM STAIN No organisms seen RESULT (BEAKER) (test code = 32680) POCT-GLUCOSE [id number] 08:43:00 Test Item Value Reference Range Interpretation Comments POC-GLUCOSE METER 160 mg/dL 70-[address] [facility] [address] (BEAKER) (test code = [place] 1538) [address] HEPATIC FUNCTION [id number] 07:20:00 Test Item Value Reference Range Interpretation Comments TOTAL PROTEIN (BEAKER) (test code = 6.4 gm/dL 6.0-8.3 770) ALBUMIN (BEAKER) (test code = 1145) 3.1 g/dL 3.5-5.0 L BILIRUBIN TOTAL (BEAKER) (test code 0.4 mg/dL 0.2-1.2 = 377) BILIRUBIN DIRECT (BEAKER) (test 0.2 mg/dL 0.1-0.5 code = 706) ALKALINE PHOSPHATASE (BEAKER) (test 67 U/L 40-150 code = 346) AST (SGOT) (BEAKER) (test code = 18 U/L 5-34 353) ALT (SGPT) (BEAKER) (test code = 38 U/L 6-55 347) BASIC METABOLIC [id number] 07:20:00 Test Item Value Reference Range Interpretation Comments SODIUM (BEAKER) 136 meq/L 136-145 (test code = 381) POTASSIUM (BEAKER) 3.3 meq/L 3.5-5.1 L (test code = 379) CHLORIDE (BEAKER) 99 meq/L 98-107 (test code = 382) CO2 (BEAKER) (test 30 meq/L 22-29 H code = 355) BLOOD UREA NITROGEN 10 mg/dL 7-21 (BEAKER) (test code = 354) CREATININE (BEAKER) 0.60 mg/dL 0.57-1.25 (test code = 358) GLUCOSE RANDOM 147 mg/dL 70-105 H (BEAKER) (test code = 652) CALCIUM (BEAKER) 8.8 mg/dL 8.4-10.2 (test code = 697) EGFR (BEAKER) (test 102 mL/min/1.73 ESTIM ATED GFR IS code = 1092) sq m NOT ACCURATE CREATININE CLEARANCE IN PREDICTING GLOMERULAR FILTRATION RATE . ESTIMATED GFR I S NOT APPLICABLE FOR DIALYSIS PATIEN TS. POCT-GLUCOSE [id number] 21:45:00 Test Item Value Reference Range Interpretation Comments POC-GLUCOSE METER 187 mg/dL 70-110 H TESTED AT [place] [address] ([facility]) (test code = [place] 15[address]) [address] POCT-GLUCOSE [id number] 18:18:00 Test Item Value Reference Range Interpretation Comments POC-GLUCOSE METER 182 mg/dL 70-110 H TESTED AT [place] [address] ([facility]) (test code = [place] 1538) [address] C. DIFFICILE GDH [id number] 17:24:00 Test Item Value Reference Range Interpretation Comments CDT TOXIN (test code Negative Negative = [id number]) CDT GDH ANTIGEN (test Negative Negative No ind ication of code = 6524064260) Clostridi um difficile infection and n o colonization. Discontinue ent juanis isolation and t herapy. Testing performed by [facility] Rapid Cassette Assay. For GDH, published sensitivity of the assay is 98.7% compared to cytotoxicity testing. For Toxin AB, published sensitivity is 87.8% and specificity 99.4% compared to cytotoxicity testing.Verification of kit performance was done by the [facility] Microbiology Lab prior to clinical use.POCT-GLUCOSE [id number] 12:05:00 Test Item Value Reference Range Interpretation Comments POC-GLUCOSE METER 213 mg/dL 70-110 H TESTED AT [place] [address] ([facility]) (test code = [place] [facility] 1538) [address] POCT-GLUCOSE [id number] 08:16:00 Test Item Value Reference Range Interpretation Comments POC-GLUCOSE METER 164 mg/dL 70-110 H TESTED AT [place] [address] ([facility]) (test code = [place] [facility] 1538) [address] HEPATIC FUNCTION [id number] 06:26:00 Test Item Value Reference Range Interpretation Comments TOTAL PROTEIN ([facility]) (test code = 6.5 gm/dL 6.0-8.3 770) ALBUMIN ([facility]) (test code = 1145) 3.1 g/dL 3.5-5.0 L BILIRUBIN TOTAL ([facility]) (test code 0.4 mg/dL 0.2-1.2 = 377) BILIRUBIN DIRECT ([facility]) (test 0.2 mg/dL 0.1-0.5 code = 706) ALKALINE PHOSPHATASE (BEAKER) (test 72 U/L 40-150 code = 346) AST (SGOT) (BEAKER) (test code = 31 U/L 5-34 353) ALT (SGPT) (BEAKER) (test code = 59 U/L 6-55 H 347) BASIC METABOLIC [id number] 06:26:00 Test Item Value Reference Range Interpretation Comments SODIUM (BEAKER) 140 meq/L 136-145 (test code = 381) POTASSIUM (BEAKER) 3.8 meq/L 3.5-5.1 (test code = 379) CHLORIDE (BEAKER) 104 meq/L 98-107 (test code = 382) CO2 (BEAKER) (test 31 meq/L 22-29 H code = 355) BLOOD UREA NITROGEN 14 mg/dL 7-21 (BEAKER) (test code = 354) CREATININE (BEAKER) 0.58 mg/dL 0.57-1.25 (test code = 358) GLUCOSE RANDOM 162 mg/dL 70-105 H (BEAKER) (test code = 652) CALCIUM (BEAKER) 9.1 mg/dL 8.4-10.2 (test code = 697) EGFR (BEAKER) (test 106 mL/min/1.73 ESTIM ATED GFR IS code = 1092) sq m NOT ACCURATE CREATININE CLEARANCE IN PREDICTING GLOMERULAR FILTRATION RATE . ESTIMATED GFR I S NOT APPLICABLE FOR DIALYSIS PATIEN TS. CBC W/PLT COUNT & AUTO [id number] 06:08:00 Test Item Value Reference Range Interpretation Comments WHITE BLOOD CELL COUNT (BEAKER) 4.3 K/ L 3.5-10.5 (test code = 775) RED BLOOD CELL COUNT (BEAKER) 3.90 M/ L 3.93-5.22 L (test code = 761) HEMOGLOBIN (BEAKER) (test code = 10.7 GM/DL 11.2-15.7 L 410) HEMATOCRIT (BEAKER) (test code = 36.1 % 34.1-44.9 411) MEAN CORPUSCULAR VOLUME (BEAKER) 92.6 fL 79.4-94.8 (test code = 753) MEAN CORPUSCULAR HEMOGLOBIN 27.4 pg 25.6-32.2 (BEAKER) (test code = 751) MEAN CORPUSCULAR HEMOGLOBIN CONC 29.6 GM/DL 32.2-35.5 L (BEAKER) (test code = 752) RED CELL DISTRIBUTION WIDTH 14.0 % 11.7-14.4 (BEAKER) (test code = 412) PLATELET COUNT (BEAKER) (test 147 K/CU MM 150-450 L code = 756) MEAN PLATELET VOLUME (BEAKER) 10.7 fL 9.4-12.3 (test code = 754) NUCLEATED RED BLOOD CELLS 0 /100 WBC 0-0 (BEAKER) (test code = 413) NEUTROPHILS RELATIVE PERCENT 72 % (BEAKER) (test code = 429) LYMPHOCYTES RELATIVE PERCENT 18 % (BEAKER) (test code = 430) MONOCYTES RELATIVE PERCENT 8 % (BEAKER) (test code = 431) EOSINOPHILS RELATIVE PERCENT 1 % (BEAKER) (test code = 432) BASOPHILS RELATIVE PERCENT 0 % (BEAKER) (test code = 437) NEUTROPHILS ABSOLUTE COUNT 3.11 K/ L 1.56-6.13 (BEAKER) (test code = 670) LYMPHOCYTES ABSOLUTE COUNT 0.78 K/ L 1.18-3.74 L (BEAKER) (test code = 414) MONOCYTES ABSOLUTE COUNT (BEAKER) 0.33 K/ L 0.24-0.36 (test code = 415) EOSINOPHILS ABSOLUTE COUNT 0.04 K/ L 0.04-0.36 (BEAKER) (test code = 416) BASOPHILS ABSOLUTE COUNT (BEAKER) 0.01 K/ L 0.01-0.08 (test code = 417) IMMATURE GRANULOCYTES-RELATIVE 1 % 0-1 PERCENT (BEAKER) (test code = 2801) POCT-GLUCOSE [id number] 21:06:00 Test Item Value Reference Range Interpretation Comments POC-GLUCOSE METER 208 mg/dL 70-[address] [facility] [address] ([facility]) (test code = [facility] 1538) [address] POCT-GLUCOSE [id number] 17:47:00 Test Item Value Reference Range Interpretation Comments POC-GLUCOSE METER 190 mg/dL 70-[address] [facility] [address] ([facility]) (test code = [facility] 1538) [address] RAD, ABDOMEN/KUB, 1 VIEW [id number] 16:46:00Reason for exam:->assess for obstructionFINAL REPORT Two abdomen images Discussion: Air-filled large bowel loops and some questionable air-filled small bowel loops are noted without gross distention. There is a presumed drain projecting over the right abdomen. No grossly apparent free intraperitoneal air. Signed: Chang Ramírez Verified Date/Time: 04/14/2018 16:46:15 Reading Location: [facility] C0[facility] Consult Reading Room POCT-GLUCOSE [id number] 15:36:00 Test Item Value Reference Range Interpretation Comments POC-GLUCOSE METER 177 mg/dL 70-110 H TESTED AT [place] [address] ([facility]) (test code = [place] 1538) [address] TISSUE [id number] 15:16:00Surgical Pathology Report Case: [id number] Authorizing Provider: Gregory Stiles MD Collected: 04/12/2018 0908 Ordering Location: [facility] PERIOPER[facility]IVE Received: 04/12/2018 1210 SERVICES Pathologist: Rosita Moncada MD Specimens: A) - Gallbladder, GALL BLADDER B) -Biopsy, Liver, LIVER BIOPSY A. GALLBLADDER, ALFONZO CYSTECTOMY: - ACUTE GANGRENOUS CHOLECYSTITIS WITH CHOLELITHIASIS - ONE BENIGN LYMPH NODE (0/1) - NEGATIVE FOR DYSPLASIA OR MALIGNANCYB. LIVER, BIOPSY: - MODERATE STEATOSIS (40%), PREDOMINANTLY [...] OR MALIGNANCY Signing Pathologist Direct Phone Line: [phone] signed by Rosita Moncada MD on 04/14/2018 at 3:16 [id number] cholecystitis A. Gallbladder. B. Liver biopsy Specimen A: Received fresh labeled "gallbladder" is an 11.5 x 5.0 x 3.5 cm focally disrupted gallbladder. The serosal surface is purple-perera to carrizales- white, dusky and exhibits cautery artifact on the [...] one intact cystic duct lymph node; A2-A3, outbound sales representative sections of gallbladder.Specimen B: Received in formalin labeled "biopsy, liver" are two light-perera cores of soft tissue measuring 2.0 cm and 2.3 cm in length, entirely submitted in cassette B1. DB/ew DB/ew Performed.POCT- GLUCOSE [id number] 08:30:00 Test Item Value Reference Range Interpretation Comments POC-GLUCOSE METER 203 mg/dL 70-[address] [facility] 67[address] (BEAKER) (test code = [place] 1538) [address] HEPATIC FUNCTION [id number] 07:45:00 Test Item Value Reference Range Interpretation Comments TOTAL PROTEIN (BEAKER) (test code = 6.9 gm/dL 6.0-8.3 770) ALBUMIN (BEAKER) (test code = 1145) 3.3 g/dL 3.5-5.0 L BILIRUBIN TOTAL (BEAKER) (test code 0.4 mg/dL 0.2-1.2 = 377) BILIRUBIN DIRECT (BEAKER) (test 0.2 mg/dL 0.1-0.5 code = 706) ALKALINE PHOSPHATASE (BEAKER) (test 89 U/L 40-150 code = 346) AST (SGOT) (BEAKER) (test code = 67 U/L 5-34 H 353) ALT (SGPT) (BEAKER) (test code = 86 U/L 6-55 H 347) BASIC METABOLIC [id number] 07:45:00 Test Item Value Reference Range Interpretation Comments SODIUM (BEAKER) 138 meq/L 136-145 (test code = 381) POTASSIUM (BEAKER) 3.7 meq/L 3.5-5.1 (test code = 379) CHLORIDE (BEAKER) 105 meq/L 98-107 (test code = 382) CO2 (BEAKER) (test 26 meq/L 22-29 code = 355) BLOOD UREA NITROGEN 17 mg/dL 7-21 (BEAKER) (test code = 354) CREATININE (BEAKER) 0.71 mg/dL 0.57-1.25 (test code = 358) GLUCOSE RANDOM 186 mg/dL 70-105 H (BEAKER) (test code = 652) CALCIUM (BEAKER) 9.1 mg/dL 8.4-10.2 (test code = 697) EGFR (BEAKER) (test 84 mL/min/1.73 ESTIMA RICHARD GFR IS code = 1092) sq m NOT ACCURATE CREATININE CLEARANCE IN PREDICTING GLOMERULAR FILTRATION RATE . ESTIMATED GFR I S NOT APPLICABLE FOR DIALYSIS PATIEN TS. CBC W/PLT COUNT & AUTO [id number] 07:08:00 Test Item Value Reference Range Interpretation Comments WHITE BLOOD CELL COUNT (BEAKER) 5.9 K/ L 3.5-10.5 (test code = 775) RED BLOOD CELL COUNT (BEAKER) 3.95 M/ L 3.93-5.22 (test code = 761) HEMOGLOBIN (BEAKER) (test code = 11.0 GM/DL 11.2-15.7 L 410) HEMATOCRIT (BEAKER) (test code = 37.2 % 34.1-44.9 411) MEAN CORPUSCULAR VOLUME (BEAKER) 94.2 fL 79.4-94.8 (test code = 753) MEAN CORPUSCULAR HEMOGLOBIN 27.8 pg 25.6-32.2 (BEAKER) (test code = 751) MEAN CORPUSCULAR HEMOGLOBIN CONC 29.6 GM/DL 32.2-35.5 L (BEAKER) (test code = 752) RED CELL DISTRIBUTION WIDTH 14.2 % 11.7-14.4 (BEAKER) (test code = 412) PLATELET COUNT (BEAKER) (test 146 K/CU MM 150-450 L code = 756) MEAN PLATELET VOLUME (BEAKER) 10.9 fL 9.4-12.3 (test code = 754) NUCLEATED RED BLOOD CELLS 0 /100 WBC 0-0 (BEAKER) (test code = 413) NEUTROPHILS RELATIVE PERCENT 80 % (BEAKER) (test code = 429) LYMPHOCYTES RELATIVE PERCENT 12 % (BEAKER) (test code = 430) MONOCYTES RELATIVE PERCENT 7 % (BEAKER) (test code = 431) EOSINOPHILS RELATIVE PERCENT 0 % (BEAKER) (test code = 432) BASOPHILS RELATIVE PERCENT 0 % (BEAKER) (test code = 437) NEUTROPHILS ABSOLUTE COUNT 4.76 K/ L 1.56-6.13 (BEAKER) (test code = 670) LYMPHOCYTES ABSOLUTE COUNT 0.69 K/ L 1.18-3.74 L (BEAKER) (test code = 414) MONOCYTES ABSOLUTE COUNT (BEAKER) 0.41 K/ L 0.24-0.36 H (test code = 415) EOSINOPHILS ABSOLUTE COUNT 0.02 K/ L 0.04-0.36 L (BEAKER) (test code = 416) BASOPHILS ABSOLUTE COUNT (BEAKER) 0.01 K/ L 0.01-0.08 (test code = 417) IMMATURE GRANULOCYTES-RELATIVE 1 % 0-1 PERCENT (BEAKER) (test code = 2801) POCT-GLUCOSE [id number] 21:45:00 Test Item Value Reference Range Interpretation Comments POC-GLUCOSE METER 192 mg/dL 70-110 H TESTED AT [place] [address] ([facility]) (test code = [facility] 1538) [address] POCT-GLUCOSE [id number] 17:16:00 Test Item Value Reference Range Interpretation Comments POC-GLUCOSE METER 149 mg/dL 70-110 H TESTED AT [place] [address] ([facility]) (test code = [facility] 1538) [address] POCT-GLUCOSE [id number] 12:45:00 Test Item Value Reference Range Interpretation Comments POC-GLUCOSE METER 167 mg/dL 70-110 H TESTED AT [place] [address] ([facility]) (test code = [facility] 1538) [address] HEMOGLOBIN [id number] 10:21:00 Test Item Value Reference Range Interpretation Comments HEMOGLOBIN A1C ([facility]) (test code = 7.5 % 4.3-6.1 H 368) POCT-GLUCOSE [id number] 08:05:00 Test Item Value Reference Range Interpretation Comments POC-GLUCOSE METER 166 mg/dL 70-110 H TESTED AT [place] [address] ([facility]) (test code = [facility] 1538) [address] HEPATIC FUNCTION [id number] 06:34:00 Test Item Value Reference Range Interpretation Comments TOTAL PROTEIN ([facility]) (test code = 6.2 gm/dL 6.0-8.3 770) ALBUMIN (BEAKER) (test code = 1145) 3.1 g/dL 3.5-5.0 L BILIRUBIN TOTAL (BEAKER) (test code 0.7 mg/dL 0.2-1.2 = 377) BILIRUBIN DIRECT (BEAKER) (test 0.4 mg/dL 0.1-0.5 code = 706) ALKALINE PHOSPHATASE (BEAKER) (test 60 U/L 40-150 code = 346) AST (SGOT) (BEAKER) (test code = 112 U/L 5-34 H 353) ALT (SGPT) (BEAKER) (test code = 89 U/L 6-55 H 347) BASIC METABOLIC [id number] 06:34:00 Test Item Value Reference Range Interpretation Comments SODIUM (BEAKER) 139 meq/L 136-145 (test code = 381) POTASSIUM (BEAKER) 3.7 meq/L 3.5-5.1 (test code = 379) CHLORIDE (BEAKER) 107 meq/L 98-107 (test code = 382) CO2 (BEAKER) (test 26 meq/L 22-29 code = 355) BLOOD UREA NITROGEN 21 mg/dL 7-21 (BEAKER) (test code = 354) CREATININE (BEAKER) 0.81 mg/dL 0.57-1.25 (test code = 358) GLUCOSE RANDOM 162 mg/dL 70-105 H (BEAKER) (test code = 652) CALCIUM (BEAKER) 8.4 mg/dL 8.4-10.2 (test code = 697) EGFR (BEAKER) (test 72 mL/min/1.73 ESTIMA RICHARD GFR IS code = 1092) sq m NOT ACCURATE CREATININE CLEARANCE IN PREDICTING GLOMERULAR FILTRATION RATE . ESTIMATED GFR I S NOT APPLICABLE FOR DIALYSIS PATIEN TS. CBC W/PLT COUNT & AUTO [id number] 06:09:00 Test Item Value Reference Range Interpretation Comments WHITE BLOOD CELL COUNT (BEAKER) 7.1 K/ L 3.5-10.5 (test code = 775) RED BLOOD CELL COUNT (BEAKER) 3.92 M/ L 3.93-5.22 L (test code = 761) HEMOGLOBIN (BEAKER) (test code = 10.9 GM/DL 11.2-15.7 L 410) HEMATOCRIT (BEAKER) (test code = 37.0 % 34.1-44.9 411) MEAN CORPUSCULAR VOLUME (BEAKER) 94.4 fL 79.4-94.8 (test code = 753) MEAN CORPUSCULAR HEMOGLOBIN 27.8 pg 25.6-32.2 (BEAKER) (test code = 751) MEAN CORPUSCULAR HEMOGLOBIN CONC 29.5 GM/DL 32.2-35.5 L (BEAKER) (test code = 752) RED CELL DISTRIBUTION WIDTH 14.6 % 11.7-14.4 H (BEAKER) (test code = 412) PLATELET COUNT (BEAKER) (test 120 K/CU MM 150-450 L code = 756) MEAN PLATELET VOLUME (BEAKER) 11.5 fL 9.4-12.3 (test code = 754) NUCLEATED RED BLOOD CELLS 0 /100 WBC 0-0 (BEAKER) (test code = 413) NEUTROPHILS RELATIVE PERCENT 80 % (BEAKER) (test code = 429) LYMPHOCYTES RELATIVE PERCENT 13 % (BEAKER) (test code = 430) MONOCYTES RELATIVE PERCENT 6 % (BEAKER) (test code = 431) EOSINOPHILS RELATIVE PERCENT 0 % (BEAKER) (test code = 432) BASOPHILS RELATIVE PERCENT 0 % (BEAKER) (test code = 437) NEUTROPHILS ABSOLUTE COUNT 5.73 K/ L 1.56-6.13 (BEAKER) (test code = 670) LYMPHOCYTES ABSOLUTE COUNT 0.93 K/ L 1.18-3.74 L (BEAKER) (test code = 414) MONOCYTES ABSOLUTE COUNT (BEAKER) 0.41 K/ L 0.24-0.36 H (test code = 415) EOSINOPHILS ABSOLUTE COUNT 0.01 K/ L 0.04-0.36 L (BEAKER) (test code = 416) BASOPHILS ABSOLUTE COUNT (BEAKER) 0.01 K/ L 0.01-0.08 (test code = 417) IMMATURE GRANULOCYTES-RELATIVE 1 % 0-1 PERCENT (BEAKER) (test code = 2801) POCT-GLUCOSE [id number] 22:00:00 Test Item Value Reference Range Interpretation Comments POC-GLUCOSE METER 181 mg/dL 70-[address] [facility] 6720 (BEAKER) (test code = [place] 1538) [id number] POCT-GLUCOSE [id number] 17:49:00 Test Item Value Reference Range Interpretation Comments POC-GLUCOSE METER 192 mg/dL 70-110 H TESTED AT [place] [address] [facility] (test code = [place] 15[address]) [address] POCT-GLUCOSE [id number] 12:34:00 Test Item Value Reference Range Interpretation Comments POC-GLUCOSE METER 244 mg/dL 70-110 H TESTED AT [place] [address] ([facility] (test code = [facility] Crist[place] 1538) [address] SPIN/CONCENTRATION [id number] 12:14:00 Test Item Value Reference Range Interpretation Comments CONCENTRATION CHARGED (BEAKER) (test Done code = 2657) POCT-GLUCOSE [id number] 11:05:00 Test Item Value Reference Range Interpretation Comments POC-GLUCOSE METER 282 mg/dL 70-110 H TESTED AT [place] [address] ([facility] (test code = [facility] Cristina [facility] 1538) [id number] B-TYPE NATRIURETIC FACTOR (BNP)2018-04-12 01:38:00 Test Item Value Reference Range Interpretation Comments B-TYPE NATRIURETIC PEPTIDE (BEAKER) 141 pg/mL 0-100 H (test code = 700) HEPATIC FUNCTION [id number] 01:31:00 Test Item Value Reference Range Interpretation Comments TOTAL PROTEIN (BEAKER) (test code = 6.0 gm/dL 6.0-8.3 770) ALBUMIN (BEAKER) (test code = 1145) 3.3 g/dL 3.5-5.0 L BILIRUBIN TOTAL (BEAKER) (test code 0.6 mg/dL 0.2-1.2 = 377) BILIRUBIN DIRECT (BEAKER) (test 0.3 mg/dL 0.1-0.5 code = 706) ALKALINE PHOSPHATASE (BEAKER) (test 52 U/L 40-150 code = 346) AST (SGOT) (BEAKER) (test code = 15 U/L 5-34 353) ALT (SGPT) (BEAKER) (test code = 13 U/L 6-55 347) BASIC METABOLIC [id number] 01:31:00 Test Item Value Reference Range Interpretation Comments SODIUM (BEAKER) 140 meq/L 136-145 (test code = 381) POTASSIUM (BEAKER) 3.6 meq/L 3.5-5.1 (test code = 379) CHLORIDE (BEAKER) 110 meq/L 98-107 H (test code = 382) CO2 (BEAKER) (test 24 meq/L 22-29 code = 355) BLOOD UREA NITROGEN 15 mg/dL 7-21 (BEAKER) (test code = 354) CREATININE (BEAKER) 0.71 mg/dL 0.57-1.25 (test code = 358) GLUCOSE RANDOM 223 mg/dL 70-105 H (BEAKER) (test code = 652) CALCIUM (BEAKER) 8.0 mg/dL 8.4-10.2 L (test code = 697) EGFR (BEAKER) (test 84 mL/min/1.73 ESTIMA RICHARD GFR IS code = 1092) sq m NOT ACCURATE CREATININE CLEARANCE IN PREDICTING GLOMERULAR FILTRATION RATE . ESTIMATED GFR I S NOT APPLICABLE FOR DIALYSIS PATIEN TS. LACTIC ACID, VENOUS, WHOLE [id number] 01:25:00 Test Item Value Reference Range Interpretation Comments LACTATE BLOOD VENOUS 0.8 mmol/L 0.5-2.2 Specime n slightly (2) (BEAKER) (test hemolyzed code = 2872) Effective 12/12/2015: Units/Reference Range ChangeNew: 0.5-2.2 mmol/L Previous: 5-20 mg/dLCBC W/PLT COUNT & AUTO [id number] 01:23:00 Test Item Value Reference Range Interpretation Comments WHITE BLOOD CELL COUNT (BEAKER) 9.9 K/ L 3.5-10.5 (test code = 775) RED BLOOD CELL COUNT (BEAKER) 4.22 M/ L 3.93-5.22 (test code = 761) HEMOGLOBIN (BEAKER) (test code = 12.0 GM/DL 11.2-15.7 410) HEMATOCRIT (BEAKER) (test code = 38.2 % 34.1-44.9 411) MEAN CORPUSCULAR VOLUME (BEAKER) 90.5 fL 79.4-94.8 (test code = 753) MEAN CORPUSCULAR HEMOGLOBIN 28.4 pg 25.6-32.2 (BEAKER) (test code = 751) MEAN CORPUSCULAR HEMOGLOBIN CONC 31.4 GM/DL 32.2-35.5 L (BEAKER) (test code = 752) RED CELL DISTRIBUTION WIDTH 14.1 % 11.7-14.4 (BEAKER) (test code = 412) PLATELET COUNT (BEAKER) (test 131 K/CU MM 150-450 L code = 756) MEAN PLATELET VOLUME (BEAKER) 11.5 fL 9.4-12.3 (test code = 754) NUCLEATED RED BLOOD CELLS 0 /100 WBC 0-0 (BEAKER) (test code = 413) NEUTROPHILS RELATIVE PERCENT 86 % (BEAKER) (test code = 429) LYMPHOCYTES RELATIVE PERCENT 7 % (BEAKER) (test code = 430) MONOCYTES RELATIVE PERCENT 7 % (BEAKER) (test code = 431) EOSINOPHILS RELATIVE PERCENT 0 % (BEAKER) (test code = 432) BASOPHILS RELATIVE PERCENT 0 % (BEAKER) (test code = 437) NEUTROPHILS ABSOLUTE COUNT 8.50 K/ L 1.56-6.13 H (BEAKER) (test code = 670) LYMPHOCYTES ABSOLUTE COUNT 0.66 K/ L 1.18-3.74 L (BEAKER) (test code = 414) MONOCYTES ABSOLUTE COUNT (BEAKER) 0.71 K/ L 0.24-0.36 H (test code = 415) EOSINOPHILS ABSOLUTE COUNT 0.00 K/ L 0.04-0.36 L (BEAKER) (test code = 416) BASOPHILS ABSOLUTE COUNT (BEAKER) 0.01 K/ L 0.01-0.08 (test code = 417) IMMATURE GRANULOCYTES-RELATIVE 1 % 0-1 PERCENT (BEAKER) (test code = 2801) RAD, CHEST, 1 VIEW, NON [id number] 23:26:00Reason for exam:->sobFINAL REPORT History: Shortness of breath. Comparison: None. Findings: A single view of the chest is submitted. The cardiomediastinal contours are unremarkable. There is no focal consolidation, pneumothorax, large pleural effusion or evidence of overt pulmonary edema. There is no acute bony abnormality. Impression: No acute abnormality. Signed: Paco Gonzales Verified Date/Time: 04/11/2018 23:26:54 Reading Location: [address] Reading Room POCT-GLUCOSE [id number] 21:49:00 Test Item Value Reference Range Interpretation Comments POC-GLUCOSE METER 240 mg/dL 70-[address] [facility] 6720 (BEAKER) (test code = [place] 1538) [address] LIPID [id number] 18:37:00 Test Item Value Reference Range Interpretation Comments TRIGLYCERIDES (BEAKER) 126 mg/dL Speci men slightly (test code = 540) hemolyzed CHOLESTEROL (BEAKER) 177 mg/dL Specime n slightly (test code = 631) hemolyzed HDL CHOLESTEROL (BEAKER) 54 mg/dL (test code = 976) LDL CHOLESTEROL 98 mg/dL CALCULATED (BEAKER) (test code = 633) Triglyceride Reference Range: Low Risk <150 Borderline 150-199 High Risk 200-499 Very High Risk >=500Cholesterol Reference Range: Low Risk <200 Borderline 200-239 High Risk >240HDL Cholesterol Reference Range: Low Risk >=60 High Risk <40LDL Cholesterol Reference Range: Optimal <100 Near Optimal 100-129 Borderline 130-159 High 160-189 Very High >=190HEPATIC FUNCTION [id number] 18:37:00 Test Item Value Reference Range Interpretation Comments TOTAL PROTEIN (BEAKER) 7.6 gm/dL 6.0-8.3 Speci men slightly (test code = 770) hemolyzed ALBUMIN (BEAKER) (test 4.1 g/dL 3.5-5.0 Speci men slightly code = 1145) hemolyzed BILIRUBIN TOTAL 0.7 mg/dL 0.2-1.2 Specimen sli ghtly (BEAKER) (test code = hemoly zed 377) BILIRUBIN DIRECT 0.3 mg/dL 0.1-0.5 Specimen sl ightly (BEAKER) (test code = hemoly zed 706) ALKALINE PHOSPHATASE 69 U/L 40-150 (BEAKER) (test code = 346) AST (SGOT) (BEAKER) 20 U/L 5-34 Specimen slightly (test code = 353) hemolyzed ALT (SGPT) (BEAKER) 18 U/L 6-55 Specimen slightly (test code = 347) hemolyzed [id number] 18:36:00 Test Item Value Reference Range Interpretation Comments LIPASE (BEAKER) (test code = 749) 15 U/L 8-78 BASIC METABOLIC [id number] 18:35:00 Test Item Value Reference Range Interpretation Comments SODIUM (BEAKER) 139 meq/L 136-145 (test code = 381) POTASSIUM (BEAKER) 3.8 meq/L 3.5-5.1 Specimen slightly (test code = 379) hemolyzed CHLORIDE (BEAKER) 106 meq/L 98-107 (test code = 382) CO2 (BEAKER) (test 23 meq/L 22-29 code = 355) BLOOD UREA NITROGEN 15 mg/dL 7-21 (BEAKER) (test code = 354) CREATININE (BEAKER) 0.72 mg/dL 0.57-1.25 Specimen slightly (test code = 358) hemolyzed GLUCOSE RANDOM 227 mg/dL 70-105 H (BEAKER) (test code = 652) CALCIUM (BEAKER) 9.3 mg/dL 8.4-10.2 (test code = 697) EGFR (BEAKER) (test 82 mL/min/1.73 ESTIMA RICHARD GFR IS code = 1092) sq m NOT ACCURATE CREATININE CLEARANCE IN PREDICTING GLOMERULAR FILTRATION RATE . ESTIMATED GFR I S NOT APPLICABLE FOR DIALYSIS PATIEN TS.
[2020-06-20] MEDS ORDERED: SMZ./TMP. 800/160 MG TABLET ONE (20:54)
[2020-06-20] MEDS ORDERED: LIDOCAINE 1% MPF 5 ML VIAL ONE (20:54)
--- NOTE | 2020-06-20 20:55 | ER ---
Nurse's Notes [facility] Name: Rachel Camacho Age: 65 yrs Sex: Female : 1955 Arrival Date: 06/20/2020 Time: 18:34 Bed 30 Private MD: Willie Voss Diagnosis: Cutaneous abscess of abdominal wall Presentation: 06/20 18:46 Chief complaint: Patient states: abscess to lower abdomen that began 3 days ago. Pt aa5 denies fever. Coronavirus screen: Client denies travel out of the [place] in the last 14 days. At this time, the client does not indicate any symptoms associated with coronavirus-19. Ebola Screen: Patient negative for fever greater than or equal to 101.5 degrees Fahrenheit, and additional compatible Ebola Virus Disease symptoms. Initial Sepsis Screen: Does the patient meet any 2 criteria? No. Patient's initial sepsis screen is negative. Does the patient have a suspected source of infection? No. Patient's initial sepsis screen is negative. Risk Assessment: Do you want to hurt yourself or someone else? Patient reports no desire to harm self or others. Onset of symptoms was June 2020. 18:46 Acuity: LUDY 3 aa5 18:46 Method Of Arrival: Ambulatory aa5 Historical: - Allergies: 18:47 Codeine; aa5 18:47 HYDROCODONE; aa5 18:47 Theophylline; aa5 - PMHx: 18:47 Anxiety; Diabetes - IDDM; GERD; High Cholesterol; Hypertension; aa5 - PSHx: 18:47 Tubal ligation; left leg; aa5 - Immunization history:: Adult Immunizations unknown. - Social history:: Smoking status: Patient denies any tobacco usage or history of. Screenin:42 Abuse screen: Denies threats or abuse. Nutritional screening: No deficits noted. bb Tuberculosis screening: No symptoms or risk factors identified. Fall Risk None identified. Assessment: 20:42 General: Appears in no apparent distress. obese, Behavior is calm, cooperative. Pain: bb Complains of pain in abscess to abdomen. Neuro: Level of Consciousness is awake, alert, obeys commands. Cardiovascular: Capillary refill < 3 seconds Patient's skin is warm and dry. Respiratory: Airway is patent Respiratory effort is even, unlabored. GI: No signs and/or symptoms were reported involving the gastrointestinal system. Derm: Abscess located on abdomen. Musculoskeletal: Circulation, motion, and sensation intact. 21:07 Reassessment: Patient is alert, oriented x 3, equal unlabored respirations, skin bb warm/dry/pink. pt verbalized understanding of and agrees to plan of care discharge instructions given pt ambulated with steady gait to exit. Vital Signs: 18:47 BP 143 / 78; Pulse 88; Resp 18 S; Temp 98.0(TE); Pulse Ox 97% on R/A; Weight 117.93 kg aa5 (R); Height 5 ft. 8 in. (172.72 cm) (R); 18:47 Body Mass Index 39.53 (117.93 kg, 172.72 cm) aa5 ED Course: 18:34 Patient arrived in ED. mr 18:34 Willie Voss MD is Private Physician. mr 18:46 Triage completed. aa5 18:46 Arm band placed on. aa5 20:07 Theodora Cote is Primary Nurse. 20:29 Ariella Jamil FNP-C [facility]. kb 20:29 Malik Arciniega MD is Attending Physician. kb 20:42 Patient has correct armband on for positive identification. Bed in low position. Call bb light in reach. Side rails up X 1. Pulse ox on. NIBP on. Warm blanket given. 20:45 Assist provider with I \T\ D: of an abscess on abdomen Set up I\T\D tray. Performed by katie PEMBERTON Culture sent to lab. Patient tolerated well. Patient did not have IV access during this emergency room visit. Administered Medications: 20:45 Drug: Bactrim (160 mg-800 mg (DS) 1 tablet Route: PO; bb 20:46 Drug: Lidocaine (1 %) 1 vials {Note: to affected area by Ariella Jamil FILTER WORKER.} Volume: 5 bb ml; Route: Infiltration; Outcome: 20:55 Discharge ordered by . kb 21:08 Discharged to home ambulatory. bb 21:08 Condition: stable 21:08 Discharge instructions given to patient, Instructed on discharge instructions, follow up and referral plans. medication usage, wound care, Demonstrated understanding of instructions, follow-up care, medications, wound care, Prescriptions given X 1. 21:09 Patient left the ED. bb Signatures: Ariella Jamil FNP-C FNP-Oly Castillo mr Rachel Talbot, RN RN bb Jayde Merritt, JOCELINE RN aa5 Theodora Cote
--- NOTE | 2020-06-20 20:55 | EDPHYS ---
Physician Documentation [facility] Name: Rachel Camacho Age: 65 yrs Sex: Female : 1955 Arrival Date: 06/20/2020 Time: 18:34 Bed 30 Private MD: Willie Voss ED Physician Malik Arciniega HPI: 06/20 20:45 This 65 yrs old Female presents to ER via Ambulatory with complaints of kb Abscess. 20:45 The patient presents with an abscess of the left lower quadrant. Description: kb erythematous, fluctuant, swollen, warm. Onset: The symptoms/episode began/occurred 2 day(s) ago. Possible cause(s): unknown. Associated signs and symptoms: Pertinent positives: erythema, swelling, Pertinent negatives: discharge, drainage, foreign body sensation, fever, headache, nausea, shortness of breath, vomiting. Modifying factors: the symptoms are alleviated by nothing, the symptoms are aggravated by nothing. Severity of symptoms: At their worst the symptoms were moderate, in the emergency department the symptoms are unchanged. The patient has experienced similar episodes in the past, a few times. The patient has not recently seen a physician. Historical: - Allergies: 18:47 Codeine; aa5 18:47 HYDROCODONE; aa5 18:47 Theophylline; aa5 - PMHx: 18:47 Anxiety; Diabetes - IDDM; GERD; High Cholesterol; Hypertension; aa5 - PSHx: 18:47 Tubal ligation; left leg; aa5 - Immunization history:: Adult Immunizations unknown. - Social history:: Smoking status: Patient denies any tobacco usage or history of. ROS: 20:43 Constitutional: Negative for fever, chills, and weight loss, Neck: Negative for injury, kb pain, and swelling, Cardiovascular: Negative for chest pain, palpitations, and edema, Respiratory: Negative for shortness of breath, cough, wheezing, and pleuritic chest pain, Abdomen/GI: Negative for abdominal pain, nausea, vomiting, diarrhea, and constipation, MS/Extremity: Negative for injury and deformity, Neuro: Negative for headache, weakness, numbness, tingling, and seizure. 20:43 Skin: Positive for abscess, of the left lower quadrant. Exam: 20:43 Constitutional: This is a well developed, well nourished patient who is awake, alert, kb and in no acute distress. Head/Face: Normocephalic, atraumatic. Chest/axilla: Normal chest wall appearance and motion. Nontender with no deformity. No lesions are appreciated. Cardiovascular: Regular rate and rhythm with a normal S1 and S2. No gallops, murmurs, or rubs. Normal PMI, no JVD. No pulse deficits. Respiratory: Lungs have equal breath sounds bilaterally, clear to auscultation and percussion. No rales, rhonchi or wheezes noted. No increased work of breathing, no retractions or nasal flaring. Abdomen/GI: Soft, non-tender, with normal bowel sounds. No distension or tympany. No guarding or rebound. No evidence of tenderness throughout. MS/ Extremity: Pulses equal, no cyanosis. Neurovascular intact. Full, normal range of motion. Neuro: Awake and alert, GCS 15, oriented to person, place, time, and situation. Cranial nerves II-XII grossly intact. Motor strength 5/5 in all extremities. Sensory grossly intact. Cerebellar exam normal. Normal gait. 20:43 Skin: abscess, that is moderate sized, of the left lower quadrant, with fluctuance. Vital Signs: 18:47 BP 143 / 78; Pulse 88; Resp 18 S; Temp 98.0(TE); Pulse Ox 97% on R/A; Weight 117.93 kg aa5 (R); Height 5 ft. 8 in. (172.72 cm) (R); 18:47 Body Mass Index 39.53 (117.93 kg, 172.72 cm) aa5 Procedures: 20:55 I \T\ D: Incision and drainage was performed for an abscess of the left lower quadrant kb Prepped with Betadine, Anesthetized with 1 ml's 1% Lidocaine. Incised with #11 blade. Drained moderate amount purulent fluid. Packed with iodoform gauze, Dressing: sterile 4x4 gauze, the patient tolerated the procedure well. MDM: 20:29 Patient medically screened. kb 20:43 Data reviewed: vital signs, nurses notes. Data interpreted: Pulse oximetry: on room air kb is 97 %. Interpretation: normal. 20:45 Counseling: I had a detailed discussion with the patient and/or guardian regarding: the kb historical points, exam findings, and any diagnostic results supporting the discharge/admit diagnosis, lab results, the need for outpatient follow up, a family practitioner, to return to the emergency department if symptoms worsen or persist or if there are any questions or concerns that arise at home. 06/20 20:38 Order name: Wound Culture kb 06/20 20:33 Order name: I\T\D Setup; Complete Time: 20:41 kb Administered Medications: 20:45 Drug: Bactrim (160 mg-800 mg (DS) 1 tablet Route: PO; bb 20:46 Drug: Lidocaine (1 %) 1 vials {Note: to affected area by Ariella Jamil FOREST FIREFIGHTER.} Volume: 5 bb ml; Route: Infiltration; Disposition: 22:28 Co-signature as Attending Physician, Malik Arciniega MD. rn Disposition: 06/20/20 20:55 Discharged to Home. Impression: Cutaneous abscess of abdominal wall. - Condition is Stable. - Discharge Instructions: Skin Abscess, [id number], Incision and Drainage, Care After. - Prescriptions for Bactrim DS 800- 160 mg Oral Tablet - take 1 tablet by ORAL route every 12 hours for 10 days; 20 tablet. - Medication Reconciliation Form, Thank You Letter, Antibiotic Education, Prescription Opioid Use form. - Follow up: Emergency Department; When: As needed; Reason: Worsening of condition. Follow up: Private Physician; When: 2 - 3 days; Reason: Recheck today's complaints, Continuance of care, Re-evaluation by your physician. Signatures: Dispatcher [employer] [facility] Ariella Jamil, Rachel Orellana RN RN bb Nieto, Roman, MD MD rn Calderon, Audri, RN RN aa5 Corrections: (The following items were deleted from the chart) 21:09 20:55 06/20/2020 20:55 Discharged to Home. Impression: Cutaneous abscess of abdominal bb wall. Condition is Stable. Discharge Instructions: Skin Abscess, [id number], Incision and Drainage, Care After. Prescriptions for Bactrim DS 800-160 mg Oral Tablet - take 1 tablet by ORAL route every 12 hours for 10 days; 20 tablet. and Forms are Medication Reconciliation Form, Thank You Letter, Antibiotic Education, Prescription Opioid Use. Follow up: Emergency Department; When: As needed; Reason: Worsening of condition. Follow up: Private Physician; When: 2 - 3 days; Reason: Recheck today's complaints, Continuance of care, Re-evaluation by your physician. kb
[2020-06-20 21:31] VITALS: BP 143/78; TEMP 98; O2SAT 97
== END 2020-06-20 21:09 | disposition home or self-care (01) ==
LOC: ER 18:30
PROC: 0J980ZZ Drainage of Abdomen Subcutaneous Tissue and Fascia, Open Approach (ICD-10-PCS; principal; 2020-06-20)
DX: L02.211 Cutaneous abscess of abdominal wall (principal); I10 Essential (primary) hypertension; Z88.5 Allergy status to narcotic agent; Z88.8 Allergy status to other drugs, medicaments and biological substances
CPT/HCPCS: 87070; 87205; 99284

== ENCOUNTER 2023-11-06 15:05 | Emergency (ER) | payer OTHER ==
[2023-11-06] MEDS ORDERED: KETOROLAC 30 MG/ML INJ ONE (15:42)
[2023-11-06] MEDS ORDERED: NA CHLORIDE 0.9% 1,000 ML ONE (15:42)
[2023-11-06 15:48] LABS: Absolute Lymphocytes (CBC) 1.4 K/uL (0.7-4.9); Absolute Monocytes 0.3 K/uL (0.1-1.3); Absolute Neutrophil 2.9 K/uL (1.8-8.0); Eosinophils % 0.3 % (0-4.4); Hematocrit 39.2 % (36.0-45.0); Hemoglobin 12.8 g/dL (12.0-15.0); Lymphocytes % 29.6 % (15.3-44.8); MCH 27.6 pg (27.0-35.0); MCHC 32.8 g/dL (32.0-36.0); MCV 84.3 fL (80-100); MPV 8.6 fL (7.6-11.3); Monocytes % 7.2 % (3.3-12.3); Neutrophils % 61.9 % (41.7-73.7); Platelets 146 thou/uL (152-406); RBC Red Blood Cell Count 4.65 M/uL (3.86-4.86); Red Cell Distribution Width 16.3 % (12.1-15.2)
[2023-11-06 16:14] LABS: Albumin 3.5 g/dL (3.4-5.0); Albumin/Globulin Ratio 0.8 (1.1-1.8); Bilirubin Total 0.2 mg/dL (0.2-1.0); Globulin 4.2 g/dL (2.3-3.5); Protein, Total 7.7 g/dL (6.4-8.2)
--- NOTE | 2023-11-06 16:16 | RAD REPORT ---
EXAM DESCRIPTION: RAD - Chest Single View - 11/06/2023 4:10 pm CLINICAL HISTORY: PAIN Chest pain. COMPARISON: <Comparisons> FINDINGS: Portable technique limits examination quality. The lungs are grossly clear. The heart is normal in size. No displaced fractures. IMPRESSION: No acute intrathoracic process suspected.
--- NOTE | 2023-11-06 17:14 | RAD REPORT ---
EXAM DESCRIPTION: CTAbdomen Pelvis W Contrast - 11/06/2023 5:05 pm CLINICAL HISTORY: Abdominal pain. ABD PAIN COMPARISON: <Comparisons> TECHNIQUE: Biphasic CT imaging of the abdomen and pelvis was performed with 100 ml non-ionic IV cont rast. All CT scans are performed using dose optimization technique as appropriate and may include automated exposure control or mA/KV adjustment according to patient size. FINDINGS: The lung bases are clear. The liver, spleen, pancreas, adrenal glands and kidneys are within normal limits. Cholecystectomy. No bowel obstruction, free air, free fluid or abscess. Moderate stool throughout the colon The appen taylor is not identified as a discrete structure, however, no secondary findings of appendicitis are shalom ntified. No evidence of significant lymphadenopathy. No suspicious bony findings. IMPRESSION: No acute intra-abdominal or pelvic finding.
[2023-11-06 17:32] LABS: Specific Gravity > 1.030 (1.005-1.030); Urine Clarity Clear (Clear); Urine Color Light-Yellow (Yellow)
[2023-11-06 17:33] LABS: Sqamous Epithelial <5 /HPF (None Seen); Urine Bacteria None Seen /HPF (<20); Urine Bilirubin NEGATIVE (Negative); Urine Blood Negative (Negative); Urine Culture Reflex Order NOT NEEDED; Urine Glucose NEGATIVE (Negative); Urine Ketones NEGATIVE (Negative); Urine Microscopic Reflex YN ORDER UMIC; Urine Mucus Slight /HPF (None Seen); Urine Nitrite NEGATIVE (Negative); Urine Protein NEGATIVE (Negative); Urine RBC <5 /HPF (None Seen); Urine Urobilinogen Normal (Normal)
[2023-11-06] MEDS ORDERED: FLEET ENEMA ADULT PR ONE (18:10)
--- NOTE | 2023-11-06 18:11 | EDPHYS ---
Physician Documentation [facility] Name: Rachel Camacho Age: 68 yrs Sex: Female : 1955 Arrival Date: 11/06/2023 Time: 15:05 Bed 14 Private MD: ED Physician Malik Arciniega HPI: 11/05 15:32 This 68 yrs old Female presents to ER via Ambulatory with complaints of no stool kb x8days, Low Back Pain. 15:32 Pt is a 68 year old female who presents for constipation for 8 days and left upper back kb pain that started 10 days ago. Denies n/v/f, abd pain. state the back pain is worse with palpation and movement. Denies injury or trauma. Pt was put on bactrim 8 days ago by computer technical specialist. . Historical: - Allergies: 15:23 Codeine; ap3 15:23 HYDROCODONE; ap3 15:23 Theophylline; ap3 - PMHx: 15:23 Anxiety; Diabetes - IDDM; GERD; High Cholesterol; Hypertension; ap3 - Immunization history:: Client reports receiving the 2nd dose of the Covid vaccine, Flu vaccine is not up to date. - Social history:: Smoking status: Patient denies any tobacco usage or history of. ROS: 15:32 Constitutional: As per HPI kb Exam: 15:32 Constitutional: This is a well developed, well nourished patient who is awake, alert, kb and in no acute distress. Head/Face: Normocephalic, atraumatic. ENT: Moist Mucous membranes Cardiovascular: Regular rate Respiratory: Respirations even and unlabored. No increased work of breathing. Talking in full sentences Skin: Warm, dry with normal turgor. Normal color. MS/ Extremity: Pulses equal, no cyanosis. Neurovascular intact. Full, normal range of motion. Neuro: Awake and alert, GCS 15, oriented to person, place, time, and situation. Moves all extremities. Normal gait. 15:32 Abdomen/GI: Inspection: obese Bowel sounds: normal, Palpation: soft, in all quadrants, moderate abdominal tenderness, in the right upper quadrant, 15:32 Back: pain, that is moderate, of the left scapular area, Vital Signs: 15:22 BP 151 / 73; Pulse 81; Resp 18; Temp 97.8; Weight 117.48 kg; Height 5 ft. 8 in. ; Pain rs5 9/10; 17:06 BP 145 / 76; Pulse 80; Resp 18; Pulse Ox 99% on R/A; rs5 18:20 BP 151 / 79; Pulse 77; Resp 18; Pulse Ox 99% on R/A; rs5 15:22 Body Mass Index 39.38 (117.48 kg, 172.72 cm) rs5 15:22 Pain Scale: Adult rs5 MDM: 15:10 Patient medically screened. kb 15:32 Data reviewed: vital signs, nurses notes. kb 17:45 Differential diagnosis: bowel obstruction, non-specific abd pain, constipation, kb radiculopathy. Counseling: I had a detailed discussion with the patient and/or guardian regarding the historical points, exam findings, and any diagnostic results supporting the discharge/admit diagnosis, lab results, radiology results, the need for outpatient follow up, a family practitioner, to return to the emergency department if symptoms worsen or persist or if there are any questions or concerns that arise at home. 17:50 Historians other than the Patient: Daughter/Son: daughter. ED course: pt requests enema kb prior to discharge. 11/05 15:20 Order name: CBC with Diff; Complete Time: 15:50 kb 11/05 15:20 Order name: CMP; Complete Time: 16:23 kb 11/05 15:20 Order name: Lipase; Complete Time: 16:23 kb 11/05 15:20 Order name: Urinalysis w/ reflexes; Complete Time: 17:39 kb 11/05 15:20 Order name: CT Abd/Pelvis - IV Contrast Only; Complete Time: 17:16 kb 11/05 15:20 Order name: Chest Single View XRAY; Complete Time: 16:23 kb 11/05 15:20 Order name: IV Saline Lock; Complete Time: 15:48 kb 11/05 15:20 Order name: Labs collected and sent; Complete Time: 15:48 kb Administered Medications: 15:48 Drug: NS 0.9% IV 1000 ml IV at 1000 ml once Route: IV; Rate: 1000 ml; Site: left rs5 antecubital; 16:05 Follow up: Response: No adverse reaction rs5 17:02 Follow up: IV Status: Completed infusion rs5 15:48 Drug: Ketorolac IVP 15 mg IVP once Route: IVP; Site: left hand; rs5 16:05 Follow up: Response: No adverse reaction; Pain is decreased rs5 18:00 Drug: Fleet Enema [place] 133 ml [place] once; may repeat once Route: [place]; rs5 18:10 Follow up: Response: No adverse reaction rs5 Disposition: 18:40 Co-signature as Attending Physician, Malik Arciniega MD I reviewed the patient's care rn provided by the Advanced Practice Provider and agree with the diagnosis and treatment plan. Disposition Summary: 11/06/23 18:10 Discharge Ordered Notes: Location: Home kb Condition: Stable kb Diagnosis - Constipation kb - Radiculopathy, cervicothoracic region kb Followup: kb - With: Emergency Department - When: As needed - Reason: Worsening of condition Followup: kb - With: Private Physician - When: 2 - 3 days - Reason: Recheck today's complaints, Continuance of care, Re-evaluation by your physician Discharge Instructions: - Discharge Summary Sheet kb - Pinched Nerve kb - Constipation, Adult, [id number] kb Forms: - Medication Reconciliation Form kb - Thank You Letter kb - Antibiotic Education kb - Prescription Opioid Use kb - Patient Portal Instructions kb - Leadership Thank You Letter kb Prescriptions: - Diclofenac Sodium 75 mg Oral tablet, delayed release (enteric coated) - take 1 tablet ORAL route 2 times per day As needed; 30 tablet; Refills: 0, kb Product Selection Permitted - orphenadrine citrate 100 mg Oral Tablet Sustained Release - take 1 tablet ORAL route 2 times per day As needed; 20 tablet; Refills: 0, kb Product Selection Permitted Signatures: Dispatcher [employer] Ariella Mera, STATION ENGINEER CHIEF-C STATION ENGINEER CHIEF-Jeffb Malik Arciniega MD MD rn Prokisch, Amanda RN RN ap3 Tommie Ravi RN RN rs5
--- NOTE | 2023-11-06 18:11 | ER ---
Nurse's Notes [facility] Name: Rachel Camacho Age: 68 yrs Sex: Female : 1955 Arrival Date: 11/06/2023 Time: 15:05 Bed 14 Private MD: Diagnosis: Constipation;Radiculopathy, cervicothoracic region Presentation: 11/05 15:22 Chief complaint: Patient states: she has been having left upper back pain that radiates ap3 to her left lower back. patient rates this pain as a 9/10 on the pain scale. patient also states she has been having constipation for approx 8 days. patient denies any nausea/vomiting. Coronavirus screen: At this time, the client does not indicate any symptoms associated with coronavirus-19. Ebola Screen: No symptoms or risks identified at this time. Risk Assessment: Do you want to hurt yourself or someone else? Patient reports no desire to harm self or others. Onset of symptoms was October 29, 2023. 15:22 Method Of Arrival: Ambulatory ap3 15:22 Acuity: LUDY 3 ap3 15:22 Initial Sepsis Screen: Does the patient meet any 2 criteria? No. Patient's initial rs5 sepsis screen is negative. Does the patient have a suspected source of infection? No. Patient's initial sepsis screen is negative. Triage Assessment: 15:24 General: Appears in no apparent distress. Behavior is calm, cooperative, appropriate ap3 for age. Pain: Complains of pain in back Pain currently is 9 out of 10 on a pain scale. Neuro: Level of Consciousness is awake, alert, obeys commands, Oriented to person, place, time, situation. Cardiovascular: Patient's skin is warm and dry. Respiratory: Airway is patent Respiratory effort is even, unlabored, Respiratory pattern is regular, symmetrical. GI: Reports constipation. Historical: - Allergies: 15:23 Codeine; ap3 15:23 HYDROCODONE; ap3 15:23 Theophylline; ap3 - PMHx: 15:23 Anxiety; Diabetes - IDDM; GERD; High Cholesterol; Hypertension; ap3 - Immunization history:: Client reports receiving the 2nd dose of the Covid vaccine, Flu vaccine is not up to date. - Social history:: Smoking status: Patient denies any tobacco usage or history of. Screenin:15 [facility] ED Fall Risk Assessment (Adult) History of falling in the last 3 months, rs5 including since admission No falls in past 3 months (0 pts) Confusion or Disorientation No (0 pts) Intoxicated or Sedated No (0 pts) Impaired Gait No (0 pts) Mobility Assist Device Used No (0 pt) Altered Elimination No (0 pt) Score/Fall Risk Level 0 - 2 = Low Risk Oriented to surroundings, Maintained a safe environment. 15:15 Abuse screen: Denies threats or abuse. Nutritional screening: No deficits noted. rs5 Tuberculosis screening: No symptoms or risk factors identified. Assessment: 15:12 General: Appears in no apparent distress. uncomfortable, Behavior is calm, cooperative. rs5 Pain: Complains of pain in lower back Pain radiates to lower back Pain currently is 9 out of 10 on a pain scale. Quality of pain is described as aching, Is continuous. Neuro: Level of Consciousness is awake, alert, obeys commands, Oriented to person, place, time, situation. 15:12 Cardiovascular: Patient's skin is warm and dry. Rhythm is regular. Respiratory: Airway rs5 is patent Respiratory effort is even, unlabored, Respiratory pattern is regular, symmetrical. GI: Abdomen is round non-distended, Abd is soft and non tender X 4 quads. GI: Reports constipation, Patient currently denies nausea. : No signs and/or symptoms were reported regarding the genitourinary system. EENT: No signs and/or symptoms were reported regarding the EENT system. Derm: Skin is intact, Skin is pink, warm \T\ dry. Musculoskeletal: Range of motion: intact in all extremities. 16:20 Reassessment: Patient and/or family updated on plan of care and expected duration. Pain rs5 level reassessed. Patient is alert, oriented x 3, equal unlabored respirations, skin warm/dry/pink. Patient denies pain at this time. Patient states feeling better. Patient states symptoms have improved. 17:06 Reassessment: No changes from previously documented assessment. rs5 18:10 Reassessment: To bedside for fleet enema adm, pt had large bowel movement, in restroom. rs5 BM is brown, formed. Pt tolerated procedure well. . 18:15 Reassessment: No changes from previously documented assessment. rs5 Vital Signs: 15:22 BP 151 / 73; Pulse 81; Resp 18; Temp 97.8; Weight 117.48 kg; Height 5 ft. 8 in. ; Pain rs5 9/10; 17:06 BP 145 / 76; Pulse 80; Resp 18; Pulse Ox 99% on R/A; rs5 18:20 BP 151 / 79; Pulse 77; Resp 18; Pulse Ox 99% on R/A; rs5 15:22 Body Mass Index 39.38 (117.48 kg, 172.72 cm) rs5 15:22 Pain Scale: Adult rs5 ED Course: 15:09 Patient arrived in ED. ra3 15:10 Ariella Jamil FNP-C [facility]. kb 15:10 Malik Arciniega MD is Attending Physician. kb 15:17 Tommie Ravi RN is Primary Nurse. rs5 15:23 Triage completed. ap3 15:25 Arm band placed on right wrist. ap3 15:27 Patient has correct armband on for positive identification. Bed in low position. Call ap3 light in reach. Side rails up X 1. Pulse ox on. NIBP on. 15:45 Inserted saline lock: 24 gauge in right hand, using aseptic technique. rs5 15:45 No provider procedures requiring assistance completed. rs5 16:12 Chest Single View XRAY In Process Unspecified. EDMS 16:39 Radiology exam delayed due to IV insertion attempt and/or patient not having nj appropriate IV at this time. 17:06 CT Abd/Pelvis - IV Contrast Only In Process Unspecified. EDMS 18:20 IV discontinued, intact, bleeding controlled, No redness/swelling at site. Pressure rs5 dressing applied. Administered Medications: 15:48 Drug: NS 0.9% IV 1000 ml IV at 1000 ml once Route: IV; Rate: 1000 ml; Site: left rs5 antecubital; 16:05 Follow up: Response: No adverse reaction rs5 17:02 Follow up: IV Status: Completed infusion rs5 15:48 Drug: Ketorolac IVP 15 mg IVP once Route: IVP; Site: left hand; rs5 16:05 Follow up: Response: No adverse reaction; Pain is decreased rs5 18:00 Drug: Fleet Enema NM 133 ml NM once; may repeat once Route: NM; rs5 18:10 Follow up: Response: No adverse reaction rs5 Medication: 17:07 VIS not applicable for this client. rs5 Outcome: 18:10 Discharge ordered by MD. resendez 18:20 Discharged to home ambulatory, rs5 18:20 Condition: stable 18:20 Discharge instructions given to patient, family, Instructed on discharge instructions, follow up and referral plans. Demonstrated understanding of instructions, follow-up care, 18:24 Patient left the ED. rs5 Signatures: Dispatcher [employer] EDHI Ariella Jamil, DIRECTOR PROSPECT-C DIRECTOR PROSPECT-Matti Godwin Amanda, RN RN ap3 Tommie Ravi RN RN rs5 Cierra Nath ra3 Corrections: (The following items were deleted from the chart) 17:07 15:22 BP 151 / 73; Temp 97.8F; 117.48 kg; Height 5 ft. 8 in.; BMI: 39.3; Pain 9/10, rs5 Adult; ap3
[2023-11-06 18:34] VITALS: BP 145/76; TEMP 97.8; O2SAT 99
== END 2023-11-06 18:24 | disposition home or self-care (01) ==
LOC: ER 15:05
DX: K59.00 Constipation, unspecified (principal); M54.13 Radiculopathy, cervicothoracic region; Z88.5 Allergy status to narcotic agent; Z88.8 Allergy status to other drugs, medicaments and biological substances
CPT/HCPCS: 96361; 85025; 81001; 36415; 83690; 80053; 74177; 71045; 96374; 99284; Q9967; J7030

== ENCOUNTER 2023-11-24 11:56 | Emergency (ER) | payer OTHER ==
--- NOTE | 2023-11-24 12:22 | ER ---
Nurse's Notes [facility] Name: Rachel Camacho Age: 68 yrs Sex: Female : 1955 Arrival Date: 11/24/2023 Time: 11:56 Bed 6 Private MD: Jacey Eric Atiq Diagnosis: Constipation, unspecified Presentation: 11/23 12:02 Chief complaint: Patient states: "I can't poop" pt reports that she hasn't had a BM in as6 9 days and has taken OTC medications. Coronavirus screen: At this time, the client does not indicate any symptoms associated with coronavirus-19. Ebola Screen: No symptoms or risks identified at this time. Initial Sepsis Screen: Does the patient meet any 2 criteria? No. Patient's initial sepsis screen is negative. Does the patient have a suspected source of infection? No. Patient's initial sepsis screen is negative. Risk Assessment: Do you want to hurt yourself or someone else? Patient reports no desire to harm self or others. Onset of symptoms was November 15, 2023. 12:02 Method Of Arrival: Ambulatory as6 12:02 Acuity: LUDY 3 as6 Triage Assessment: 12:07 General: Appears uncomfortable, Behavior is calm, cooperative. Pain: Complains of pain as6 in abdomen. GI: Reports constipation. Historical: - Allergies: 12:06 Codeine; as6 12:06 HYDROCODONE; as6 12:06 Theophylline; as6 12:06 NSAIDS; as6 - PMHx: 12:06 Anxiety; Diabetes - IDDM; GERD; High Cholesterol; Hypertension; as6 - PSHx: 12:06 knee; Cholecystectomy; Ligation of fallopian tube; as6 - Immunization history:: Adult Immunizations up to date. - Infectious Disease History:: Denies. - Social history:: Smoking status: Patient/guardian denies using tobacco, but has a distant history of tobacco abuse. Screenin:29 [facility] ED Fall Risk Assessment (Adult) History of falling in the last 3 months, kn including since admission No falls in past 3 months (0 pts). Abuse screen: Denies threats or abuse. Nutritional screening: No deficits noted. Tuberculosis screening: No symptoms or risk factors identified. Assessment: 12:29 Reassessment: Patient appears in no apparent distress at this time. Patient is alert, kn oriented x 3, equal unlabored respirations, skin warm/dry/pink. Vital Signs: 12:02 BP 139 / 69; Pulse 85; Resp 18 S; Temp 97.9(O); Pulse Ox 95% on R/A; Weight 111.58 kg as6 (R); Height 5 ft. 8 in. (R); Pain 8/10; 12:02 Body Mass Index 37.40 (111.58 kg, 172.72 cm) as6 12:02 Pain Scale: Adult as6 ED Course: 11:58 Patient arrived in ED. rg4 11:58 Jacey Eric MD is Private Physician. rg4 11:58 Kaushal Pardo MD is Attending Physician. ec2 12:02 Arm band placed on. as6 12:06 Triage completed. as6 12:29 Patient has correct armband on for positive identification. Bed in low position. Call kn light in reach. Side rails up X 1. Provided Education on: constipation. 12:29 Patient did not have IV access during this emergency room visit. kn Administered Medications: No medications were administered Medication: 12:29 VIS not applicable for this client. kn Outcome: 12:21 Discharge ordered by . ec2 12:29 Discharged to home ambulatory, with family, kn 12:29 Condition: stable 12:29 Discharge instructions given to patient, 12:39 Patient left the ED. kn Signatures: Naidne Aquino rg4 Jesus Alcantara, RN RN as6 Kaushal Pardo MD MD ec2 CORBY DA SILVA RN RN kn
--- NOTE | 2023-11-24 12:22 | EDPHYS ---
Physician Documentation [facility] Name: Rahcel Camacho Age: 68 yrs Sex: Female : 1955 Arrival Date: 11/24/2023 Time: 11:56 Bed 6 Private MD: Jacey Eric Atiq ED Physician Kaushal Pardo HPI: 11/23 12:22 This 68 yrs old Female presents to ER via Ambulatory with complaints of ec2 Constipation. 12:22 Patient arrives today for evaluation of constipation. States she has not had vomiting 8 ec2 days. Patient reports that she has drastically changed her diet to include no carbs. Patient states that she has lost a significant amount of weight. Patient reports that she has tried suppositories that have helped some. Patient reports that she has not had a bowel movement. She is afraid that she can have a bowel movement and will pass out because of the amount of straining she is going to have.. Historical: - Allergies: 12:06 Codeine; as6 12:06 HYDROCODONE; as6 12:06 Theophylline; as6 12:06 NSAIDS; as6 - PMHx: 12:06 Anxiety; Diabetes - IDDM; GERD; High Cholesterol; Hypertension; as6 - PSHx: 12:06 knee; Cholecystectomy; Ligation of fallopian tube; as6 - Immunization history:: Adult Immunizations up to date. - Infectious Disease History:: Denies. - Social history:: Smoking status: Patient/guardian denies using tobacco, but has a distant history of tobacco abuse. ROS: 12:22 Constitutional: as per hpi ec2 Exam: 12:22 Constitutional: GEN: NAD Head: atraumatic Eyes: EOMI Ears: External ears are ec2 normal. CV: regular rate LUNGS: no respiratory distress ABD: Obese, soft, nontender, no guarding, not rigid SKIN: no evidence of rashes MSK: no evidence of trauma NEURO: moves all extremities equally Vital Signs: 12:02 BP 139 / 69; Pulse 85; Resp 18 S; Temp 97.9(O); Pulse Ox 95% on R/A; Weight 111.58 kg as6 (R); Height 5 ft. 8 in. (R); Pain 8/10; 12:02 Body Mass Index 37.40 (111.58 kg, 172.72 cm) as6 12:02 Pain Scale: Adult as6 MDM: 12:21 Patient medically screened. ec2 12:22 Data reviewed: vital signs. ED course: Patient arrives today for constipation ongoing ec2 for 8 days. Examination remarkable for well-appearing nontoxic individual with reassuring vital signs who has a benign abdomen. Patient is asking for admission to the hospital to monitor the patient have a bowel movement to make sure she does not potentially become lightheaded and pass out. I instructed her that we would not admit her to monitor her bowel movement. I instructed her that she has reassuring vital signs and a reassuring abdominal examination, I will prescribe her medications for constipation and that she can have a bowel movement in the comfort of her own home and if there is any complications and she can return to the emergency department at that point. Granddaughter/caregiver agreed and patient agreed, will discharge home. Patient otherwise in no acute distress with reassuring vital signs, has a reassuring abdominal examination. Patient has no red flag symptoms such as nausea vomiting or abdominal pain to indicate underlying process such as small bowel obstruction, accordingly I will defer additional testing such as CT imaging. I suspect ultimately the patient's drastic change in her diet is likely was causing the patient's constipation. Patient also states that she does not want to take fiber because it may cause issues with her sugars.. Administered Medications: No medications were administered Disposition Summary: 11/24/23 12:21 Discharge Ordered Notes: Location: Home ec2 Condition: Stable ec2 Diagnosis - Constipation, unspecified ec2 Followup: ec2 - With: Private Physician - When: - Reason: Recheck today's complaints Discharge Instructions: - Discharge Summary Sheet ec2 - Constipation, Adult, [id number] ec2 Forms: - Medication Reconciliation Form ec2 - Thank You Letter ec2 - Antibiotic Education ec2 - Prescription Opioid Use ec2 - Patient Portal Instructions ec2 - Leadership Thank You Letter ec2 Prescriptions: - Milk of Magnesia 400 mg/5 mL Oral suspension - take 30 milliliter ORAL route 2 times per day as needed for constipation; 355 ec2 milliliter; Refills: 0, Product Selection Permitted Signatures: Jesus Alcantara RN RN as6 Kaushal Pardo MD MD ec2
[2023-11-24 16:59] VITALS: BP 139/69; TEMP 97.9; O2SAT 95
== END 2023-11-24 12:39 | disposition home or self-care (01) ==
LOC: ER 11:56
DX: K59.00 Constipation, unspecified (principal); Z88.5 Allergy status to narcotic agent; Z88.6 Allergy status to analgesic agent; Z88.8 Allergy status to other drugs, medicaments and biological substances
CPT/HCPCS: 99282

== ENCOUNTER 2024-07-24 18:22 | Observation (INO) | payer OTHER ==
[2024-07-24 20:36] LABS: Absolute Lymphocytes (CBC) 1.6 K/uL (0.7-4.9); Absolute Monocytes 0.3 K/uL (0.1-1.3); Absolute Neutrophil 2.3 K/uL (1.8-8.0); Basophils % 0.8 % (0-1.3); Eosinophils % 0.7 % (0-4.4); Hematocrit 39.6 % (36.0-45.0); Lymphocytes % 37.7 % (15.3-44.8); MCH 28.4 pg (27.0-35.0); MCHC 32.8 g/dL (32.0-36.0); MCV 86.6 fL (80-100); Monocytes % 6.4 % (3.3-12.3); Neutrophils % 54.4 % (41.7-73.7); Nucleated Red Blood Cells % 0.3 % (0-0); Platelets 158 thou/uL (152-406); RBC Red Blood Cell Count 4.58 M/uL (3.86-4.86); Red Cell Distribution Width 15.1 % (12.1-15.2)
[2024-07-24] MEDS ORDERED: ONDANSETRON 4 MG/2 ML VIAL ONE (20:36)
[2024-07-24] MEDS ORDERED: PIPERACIL/TAZO 3.375 GM VIAL IV ONE (20:37)
[2024-07-24] MEDS ORDERED: ACETAMINOPHEN 500 MG TAB ONE (20:37)
[2024-07-24] MEDS ORDERED: NA CHLORIDE 0.9% 100 ML ONE (20:37)
[2024-07-24 20:40] LABS: Protime INR 1.07
[2024-07-24 20:51] LABS: ALT/SGPT 16 U/L (13-56); AST/SGOT 16 U/L (15-37); Albumin 3.3 g/dL (3.4-5.0); Albumin/Globulin Ratio 0.8 (1.1-1.8); Alkaline Phosphatase 87 U/L (45-117); Anion Gap 7.8 mEq/L (5.0-15.0); BUN Blood Urea Nitrogen 20 mg/dL (7-18); Bicarbonate 27 mEq/L (21-32); Bilirubin Total 0.3 mg/dL (0.2-1.0); Globulin 4.4 g/dL (2.3-3.5); Glomerular Filtration Rate 97 ml/min (=/>90); Glucose Level 94 mg/dL (74-106); Magnesium 2.2 mg/dL (1.6-2.4); NT PRO-BNP 32 pg/mL (<125); Potassium 3.8 mEq/L (3.5-5.1); Protein, Total 7.7 g/dL (6.4-8.2); Sodium Level 138 mEq/L (136-145); Troponin High Sensitivity 3.6 pg/mL (<58.9)
--- NOTE | 2024-07-24 20:52 | RAD REPORT ---
Procedure: Chest Single View HISTORY: Cough COMPARISON: October 2023 FINDINGS: The lungs appear clear of acute infiltrate. No significant pleural effusion noted. The heart is normal size. IMPRESSION: No acute abnormality is displayed.
[2024-07-24 20:53] LABS: Bilirubin Direct < 0.2 mg/dL (0-0.2); Bilirubin Indirect, Calculated 0.1 mg/dL (0.2-0.8)
--- NOTE | 2024-07-24 20:54 | RAD REPORT ---
Exam:Foot Left 3 View CLINICAL HISTORY: Left foot pain FINDINGS: No fracture or dislocation seen No bony destructive lesion seen. Small calcaneal spur
--- NOTE | 2024-07-24 20:56 | RAD REPORT ---
Exam:Foot Right 3 View CLINICAL HISTORY: Right foot pain FINDINGS: No fracture or dislocation seen Hallux valgus deformity Soft tissue swelling. No bony destructive lesion seen.
--- NOTE | 2024-07-24 21:53 | EDPHYS ---
Physician Documentation [facility] Name: Rachel Camacho Age: 69 yrs Sex: Female : 1955 Arrival Date: 07/24/2024 Time: 18:22 Bed 17 Private MD: ED Physician Jack Karimi HPI: 07/24 20:21 This 69 yrs old Female presents to ER via Wheelchair with complaints of Wound danilo Check - right big toe, Left big toe pain. 20:21 Patient presents to ED for recheck of: cellulitis. The affected area is on the right danilo foot and left foot. Previous treatment: dr vázquez. Progress: The patient reports decreased pain, redness, swelling. The patient has experienced similar episodes in the past, multiple times. Historical: - Allergies: 18:53 Codeine; cm10 18:53 HYDROCODONE; cm10 18:53 NSAIDS; cm10 18:53 Theophylline; cm10 18:53 Clindamycin; cm10 - PMHx: 18:53 Anxiety; Diabetes - IDDM; GERD; High Cholesterol; Hypertension; cm10 - PSHx: 18:53 Cholecystectomy; knee; Ligation of fallopian tube; cm10 - Immunization history:: Adult Immunizations up to date. - Infectious Disease History:: Denies. - Social history:: Smoking status: unknown. ROS: 20:22 Constitutional: Negative for fever, chills, and weight loss, Eyes: Negative for injury, danilo pain, redness, and discharge, ENT: Negative for injury, pain, and discharge, Cardiovascular: Negative for chest pain, palpitations, and edema, Respiratory: Negative for shortness of breath, cough, wheezing, and pleuritic chest pain, Abdomen/GI: Negative for abdominal pain, nausea, vomiting, diarrhea, and constipation, Back: Negative for injury and pain, : Negative for injury, bleeding, discharge, and swelling, Neuro: Negative for headache, weakness, numbness, tingling, and seizure, Psych: Negative for depression, anxiety, suicide ideation, homicidal ideation, and hallucinations, Allergy/Immunology: Negative for hives, rash, and allergies, Endocrine: Negative for neck swelling, polydipsia, polyuria, polyphagia, and marked weight changes, Hematologic/Lymphatic: Negative for swollen nodes, abnormal bleeding, and unusual bruising, 20:22 Neck: Positive for pain with movement, swelling, tenderness, Exam: 20:22 Constitutional: This is a well developed, well nourished patient who is awake, alert, danilo and in no acute distress. Head/Face: Normocephalic, atraumatic. Eyes: Pupils equal round and reactive to light, extra-ocular motions intact. Lids and lashes normal. Conjunctiva and sclera are non-icteric and not injected. Cornea within normal limits. Periorbital areas with no swelling, redness, or edema. ENT: Nares patent. No nasal discharge, no septal abnormalities noted. Tympanic membranes are normal and external auditory canals are clear. Oropharynx with no redness, swelling, or masses, exudates, or evidence of obstruction, uvula midline. Mucous membranes moist. Neck: Trachea midline, no thyromegaly or masses palpated, and no cervical lymphadenopathy. Supple, full range of motion without nuchal rigidity, or vertebral point tenderness. No Meningismus. Chest/axilla: Normal chest wall appearance and motion. Nontender with no deformity. No lesions are appreciated. Cardiovascular: Regular rate and rhythm with a normal S1 and S2. No gallops, murmurs, or rubs. Normal PMI, no JVD. No pulse deficits. Respiratory: Lungs have equal breath sounds bilaterally, clear to auscultation and percussion. No rales, rhonchi or wheezes noted. No increased work of breathing, no retractions or nasal flaring. Abdomen/GI: Soft, non-tender, with normal bowel sounds. No distension or tympany. No guarding or rebound. No evidence of tenderness throughout. Back: No spinal tenderness. No costovertebral tenderness. Full range of motion. Female : Normal external genitalia. Neuro: Awake and alert, GCS 15, oriented to person, place, time, and situation. Cranial nerves II-XII grossly intact. Motor strength 5/5 in all extremities. Sensory grossly intact. Cerebellar exam normal. Normal gait. Psych: Awake, alert, with orientation to person, place and time. Behavior, mood, and affect are within normal limits. 20:22 Skin: cellulitis, that is mild, that is moderate, on the plantar aspect of right first toe, 21:02 ECG was reviewed by the Attending Physician. [facility] Vital Signs: 18:51 BP 130 / 73; Pulse 72; Resp 16; Temp 98(O); Pulse Ox 95% on R/A; Weight 97.98 kg; cm10 Height 5 ft. 8 in. ; Pain 9/10; 21:22 BP 106 / 47; Pulse 60; Resp 18 S; Pulse Ox 97% on R/A; br2 22:17 BP 105 / 44; Pulse 57; Resp 18; Pulse Ox 100% on R/A; br2 22:50 BP 110 / 53; Pulse 55; Resp 18 S; Temp 98.2(TE); Pulse Ox 100% ; br2 18:51 Body Mass Index 32.84 (97.98 kg, 172.72 cm) cm10 18:51 Pain Scale: Adult cm10 MDM: 19:16 Medical Screening Exam initiated [facility] 20:25 Differential diagnosis: cellulitis, fracture, foreign body, arthritis, gout, danilo cellulitis. Data reviewed: vital signs, nurses notes, lab test result(s), EKG, radiologic studies, plain films. Consideration of Admission/Observation Escalation of care including admission/observation considered. Independent interpretation of the following test(s) in the Emergency Department EKG: See my EKG interpretation above. Test considered but Not performed: MRI: no mri. Care significantly affected by the following chronic conditions: Diabetes, Hypertension, Obesity, anxiety , gerd, high chlesterol. 07/24 20:20 Order name: Basic Metabolic Panel [facility] 07/24 20:20 Order name: CBC with Diff; Complete Time: 21:48 [facility] 07/24 20:20 Order name: LFT's [facility] 07/24 20:20 Order name: Magnesium [facility] 07/24 20:20 Order name: NT PRO-BNP [facility] 07/24 20:20 Order name: PT-INR; Complete Time: 21:48 [facility] 07/24 20:20 Order name: Troponin HS [facility] 07/24 20:20 Order name: CRP [facility] 07/24 22:37 Order name: Uric Acid [facility] 07/24 22:37 Order name: Thyroid Stimulating Hormone [facility] 07/24 22:37 Order name: CBC with Automated Diff [facility] 07/24 22:37 Order name: CBC with Automated Diff [facility] 07/24 22:37 Order name: Comprehensive Metabolic Panel [facility] 07/24 22:37 Order name: Comprehensive Metabolic Panel [facility] 07/24 22:37 Order name: Lipid Profile [facility] 07/24 22:37 Order name: Lipid Profile [facility] 07/24 23:47 Order name: Uric Acid [facility] 07/24 23:47 Order name: Thyroid Stimulating Hormone [facility] 07/25 00:08 Order name: Glucose, Ancillary Testing [facility] 07/24 20:20 Order name: XRAY Chest (1 view); Complete Time: 21:48 [facility] 07/24 20:20 Order name: Foot Left 3 View XRAY; Complete Time: 21:48 [facility] 07/24 20:20 Order name: Foot Right 3 View XRAY; Complete Time: 21:48 [facility] 07/24 22:37 Order name: CT RIGHT FOOT WO CONTRAST [facility] 07/24 20:20 Order name: EKG; Complete Time: 20:21 [facility] 07/24 22:37 Order name: CONS Physician Consult [facility] 07/24 20:20 Order name: Cardiac monitoring; Complete Time: 20:40 [facility] 07/24 20:20 Order name: EKG - Nurse/Tech; Complete Time: 20:40 [facility] 07/24 20:20 Order name: IV Saline Lock; Complete Time: 20:50 [facility] 07/24 20:20 Order name: Labs collected and sent; Complete Time: 20:50 [facility] 07/24 20:20 Order name: O2 Per Protocol; Complete Time: 20:51 [facility] 07/24 20:20 Order name: O2 Sat Monitoring [facility] EC:02 Rate is 66 beats/min. Rhythm is regular. QRS [place] is Normal. NV interval is normal. QRS danilo interval is normal. QT interval is normal. No Q waves. T waves are Normal. No ST changes noted. Clinical impression: Normal ECG and No evidence of ischemia. Interpreted by me. Reviewed by me. Administered Medications: 20:49 Not Given (Patient Refused): mg PO once br2 20:50 Drug: Ondansetron IVP 4 mg IVP once; over 2 minutes Route: IVP; Site: right forearm; br2 21:36 Follow up: Response: No adverse reaction br2 20:50 Drug: Piperacillin-Tazobactam IVPB 3.375 grams IVPB once over 60 mins; (mix in NS 100 br2 mL) Route: IVPB; Infused Over: 60 mins; Site: right forearm; 21:36 Follow up: IV Status: Completed infusion; IV Intake: 100ml br2 20:50 Drug: Acetaminophen PO 1000 mg PO once Route: PO; br2 21:36 Follow up: Response: No adverse reaction br2 Disposition Summary: 07/24/24 21:52 Hospitalization Ordered Notes: Hospitalization Status: Inpatient Admission danilo Provider: Zulema Lambert cha Location: Telemetry/MedSurg (Inpatient) danilo Condition: Fair danilo Problem: new danilo Symptoms: are unchanged danilo Bed/Room Type: Standard [facility] Room Assignment: 220(07/24/24 22:46) af3 Diagnosis - Cellulitis and acute lymphangitis of other sites - right great toe, left toe danilo - Corns and callosities danilo - Personal history of diabetic foot ulcer danilo Forms: - Medication Reconciliation Form danilo - SBAR form danilo - Leadership Thank You Letter danilo Signatures: Dispatcher [employer] EDJack Lowery MD MD cha Martinez, Clarissa, RN RN cm10 Bina Maciel RN RN br2 Anna Perez af3 Corrections: (The following items were deleted from the chart) 20:21 20:21 Foot Right 3 View+RAD.RAD.BRZ ordered. [facility] EDMS 22:46 21:52 danilo af3
--- NOTE | 2024-07-24 21:53 | ER ---
Nurse's Notes [facility] Name: Rachel Camacho Age: 69 yrs Sex: Female : 1955 Arrival Date: 07/24/2024 Time: 18:22 Bed 17 Private MD: Diagnosis: Cellulitis and acute lymphangitis of other sites-right great toe, left toe;Corns and callosities;Personal history of diabetic foot ulcer Presentation: 07/24 18:51 Chief complaint: Patient states: REDNESS AND SWELLING TO GREAT TOE ON RIGHT FOOT. PT cm10 ALSO REPORTS HAVING PAIN TO GREAT TOE ON LEFT FOOT. Coronavirus screen: Client denies travel out of the [place] in the last 14 days. Ebola Screen: Patient denies travel to an Ebola-affected area in the 21 days before illness onset. No symptoms or risks identified at this time. Initial Sepsis Screen: Does the patient meet any 2 criteria? No. Patient's initial sepsis screen is negative. Does the patient have a suspected source of infection? No. Patient's initial sepsis screen is negative. Risk Assessment: Do you want to hurt yourself or someone else? Patient reports no desire to harm self or others. Onset of symptoms was July 24, 2024. 18:51 Method Of Arrival: Wheelchair cm10 18:51 Acuity: LUDY 3 cm10 Triage Assessment: 18:54 General: Appears in no apparent distress. comfortable, Behavior is calm, cooperative, cm10 appropriate for age. Neuro: No deficits noted. Level of Consciousness is awake, alert, obeys commands, Oriented to person, place, time, situation, Appropriate for age. Respiratory: No deficits noted. Airway is patent Respiratory effort is even, unlabored, Respiratory pattern is regular, symmetrical. Historical: - Allergies: 18:53 Codeine; cm10 18:53 HYDROCODONE; cm10 18:53 NSAIDS; cm10 18:53 Theophylline; cm10 18:53 Clindamycin; cm10 - PMHx: 18:53 Anxiety; Diabetes - IDDM; GERD; High Cholesterol; Hypertension; cm10 - PSHx: 18:53 Cholecystectomy; knee; Ligation of fallopian tube; cm10 - Immunization history:: Adult Immunizations up to date. - Infectious Disease History:: Denies. - Social history:: Smoking status: unknown. Screenin:10 [facility] ED Fall Risk Assessment (Adult) History of falling in the last 3 months, br2 including since admission No falls in past 3 months (0 pts) Confusion or Disorientation No (0 pts) Intoxicated or Sedated No (0 pts) Impaired Gait Yes (1 pt) Mobility Assist Device Used Yes (1 pt) Altered Elimination No (0 pt) Score/Fall Risk Level 3 or more points = High Risk Oriented to surroundings, Maintained a safe environment. Abuse screen: Denies threats or abuse. Denies injuries from another. Nutritional screening: No deficits noted. Tuberculosis screening: No symptoms or risk factors identified. Assessment: 19:20 Reassessment: Patient and/or family updated on plan of care and expected duration. Pain br2 level reassessed. Patient is alert, oriented x 3, equal unlabored respirations, skin warm/dry/pink. General: Appears uncomfortable, Behavior is calm, cooperative, quiet. Pain: Complains of pain in plantar aspect of left first toe Pain does not radiate. Pain currently is 10 out of 10 on a pain scale. Quality of pain is described as aching. Neuro: Jang Agitation-Sedation Scale (RASS): 0 - Alert and Calm Level of Consciousness is awake, alert, Oriented to person, place, time, situation. Cardiovascular: Capillary refill < 3 seconds. Respiratory: Airway is patent Respiratory effort is even, unlabored, Respiratory pattern is regular, symmetrical. GI: No signs and/or symptoms were reported involving the gastrointestinal system. : No signs and/or symptoms were reported regarding the genitourinary system. EENT: No signs and/or symptoms were reported regarding the EENT system. Derm: Skin CALLUS TO BILATERAL LATERAL PLANTAR GREAT TOES, RIGHT TOE WITH BLACK ESCHAR AREA. 22:17 Reassessment: Patient and/or family updated on plan of care and expected duration. Pain br2 level reassessed. Patient is alert, oriented x 3, equal unlabored respirations, skin warm/dry/pink. Patient states feeling better. Patient states symptoms have improved. 22:34 Reassessment: No changes from previously documented assessment. Patient and/or family br2 updated on plan of care and expected duration. Pain level reassessed. Patient is alert, oriented x 3, equal unlabored respirations, skin warm/dry/pink. Vital Signs: 18:51 BP 130 / 73; Pulse 72; Resp 16; Temp 98(O); Pulse Ox 95% on R/A; Weight 97.98 kg; cm10 Height 5 ft. 8 in. ; Pain 9/10; 21:22 BP 106 / 47; Pulse 60; Resp 18 S; Pulse Ox 97% on R/A; br2 22:17 BP 105 / 44; Pulse 57; Resp 18; Pulse Ox 100% on R/A; br2 22:50 BP 110 / 53; Pulse 55; Resp 18 S; Temp 98.2(TE); Pulse Ox 100% ; br2 18:51 Body Mass Index 32.84 (97.98 kg, 172.72 cm) cm10 18:51 Pain Scale: Adult cm10 ED Course: 18:26 Patient arrived in ED. im 18:53 Triage completed. cm10 18:54 Arm band placed on right wrist. Patient placed in waiting room. cm10 19:10 Patient has correct armband on for positive identification. Placed in gown. Bed in low br2 position. Call light in reach. Side rails up X 1. Provided Education on: PLAN OF CARE. 19:16 Jack Karimi MD is Attending Physician. danilo 20:19 Bina Maciel, RN is Primary Nurse. br2 20:28 Inserted saline lock: 20 gauge in right forearm, using aseptic technique. Blood br2 collected. Flushed with 10 mL NS. 20:37 XRAY Chest (1 view) In Process Unspecified. EDMS 20:37 Foot Left 3 View XRAY In Process Unspecified. EDMS 20:37 Foot Right 3 View XRAY In Process Unspecified. EDMS 20:40 EKG done, by ED staff, reviewed by Jack Karimi MD. oe 20:51 Basic Metabolic Panel Sent. br2 20:51 LFT's Sent. br2 20:51 Magnesium Sent. br2 20:51 NT PRO-BNP Sent. br2 20:51 Troponin HS Sent. br2 21:50 Zulema Lambert MD is Hospitalizing Provider. danilo 23:40 No provider procedures requiring assistance completed. Patient admitted, IV remains in br2 place. Administered Medications: 20:49 Not Given (Patient Refused): [id number] mg PO once br2 20:50 Drug: Ondansetron IVP 4 mg IVP once; over 2 minutes Route: IVP; Site: right forearm; br2 21:36 Follow up: Response: No adverse reaction br2 20:50 Drug: Piperacillin-Tazobactam IVPB 3.375 grams IVPB once over 60 mins; (mix in NS 100 br2 mL) Route: IVPB; Infused Over: 60 mins; Site: right forearm; 21:36 Follow up: IV Status: Completed infusion; IV Intake: 100ml br2 20:50 Drug: Acetaminophen PO 1000 mg PO once Route: PO; br2 21:36 Follow up: Response: No adverse reaction br2 Medication: 23:40 VIS not applicable for this client. br2 Intake: 21:36 IV: 100ml; Total: 100ml. br2 Outcome: 21:52 Decision to Hospitalize by Provider. danilo 23:40 Admitted to Med/surg accompanied by tech, via stretcher, room 220, br2 23:40 Condition: stable 23:40 Instructed on the need for admit, Demonstrated understanding of instructions, 07/25 00:18 Patient left the ED. br2 Signatures: Dispatcher [employer] EDJack Lowery MD MD cha Espinosa, Orlando oe Mendoza, Itzel im Martinez, Clarissa, RN RN cm10 Bina Maciel RN RN br2
--- NOTE | 2024-07-24 22:07 | P.HP ---
Certification for Inpatient Patient admitted to: Observation With expected LOS: <2 Midnights Patient will require the following post-hospital care: None Practitioner: I am a practitioner with admitting privileges, knowledge of patient current condition, hospital course, and medical plan of care. Services: Services provided to patient in accordance with Admission requirements found in Title 42 Section 412.3 of the Code of Federal Regulations Patient History Date of Service: 07/24/24 Reason for admission: right foot pain History of Present Illness: 69-year-old female with past medical history of HTN/DM type II, HLD, previous multiple bilateral toe infection s/p debridement, follows with podiatry Dr. Chaney who presented today because of significant pain over the right big toe since the last 2 days. Patient states pain is worse with movement or when touched. She denies any fever. She says she has chronic calluses over bilateral great toes and she has been seeing podiatry for that. She has had some mild pain on the left foot when she walks but not to the extent of the right foot. Patient pain worsening to the extent that she is unable to walk. She denies any fever or chills she denies any recent trauma. On arrival in the ED vital signs were stable, afebrile, laboratory workup shows normal WBC and differentials, BMP was unremarkable. CRP was elevated at 10.7. X-ray of the bilateral feet shows soft tissue swelling but no bony destruction or fracture. Allergies acetaminophen [From Tylenol-Codeine #3] Allergy (Unverified 11/15/15 10:44) Unknown codeine Allergy (Unverified 04/06/15 01:48) Unknown theophylline Allergy (Unverified 04/06/15 01:48) Unknown Hydrocodone-Acetaminophen Allergy (Uncoded 04/06/15 01:48) Unknown - Past Medical/Surgical History -: Hypertension -: Diabetes mellitus -: HLD -: Anxiety -: GERD -: Cholecystectomy -: Ligation of fallopian tube -: Knee arthroscopy - Family History Family History: Reviewed- Non-Contributory - Social History Smoking Status: Unknown if ever smoked Smoking therapy provided: No Patient receptive to therapy: No Alcohol use: No CD- Drugs: No Place of Residence: Home Review of Systems Musculoskeletal: Foot Pain Physical Examination - Physical Exam General: Alert, In no apparent distress, Oriented x3 HEENT: Atraumatic, Normocephalic Neck: Supple, 2+ carotid pulse no bruit, JVD not distended Respiratory: Clear to auscultation bilaterally, Normal air movement Cardiovascular: Normal pulses, Regular rate/rhythm, Normal S1 S2 Gastrointestinal: Normal bowel sounds, Soft and benign, Non-distended, W/out splenomegaly, No ascites Musculoskeletal: Tenderness, Warmth, Other (Mild erythema of the whole of the right great toe, with associated edema, no open wounds, notable calluses on the base of the dorsum as well as on multiple digits on the left) Integumentary: No rashes, No breakdown Neurological: Normal gait, Normal speech, Normal strength at 5/5 x4 extr, Sensation intact, Cranial nerves 3-12 intact External genitalia: No edema, No lesions, Edema (trace pedal edema b/l ) - Studies Laboratory Data (last 24 hrs) 07/24/24 07/24/24 07/24/24 20:26 20:26 20:26 WBC 4.30 Hgb 13.0 Hct 39.6 Plt Count 158 PT 12.0 INR 1.07 Sodium 138 Potassium 3.8 BUN 20 H Creatinine 0.64 Glucose 94 Magnesium 2.2 Total Bilirubin 0.3 AST 16 ALT 16 Alkaline Phosphatase 87 Assessment and Plan - Problems (Diagnosis) (1) Cellulitis of toe of right foot Current Visit: Yes Status: Acute - Plan Impression Right great toe cellulitis Rule out podagra Bilateral foot digit calluses Hypertension DM HLD Plan Will admit patient to observation Obtain uric acid level for possible bilateral acute gouty arthritis Start empiric antibiotics with cefepime Obtain sed rate as well as MRI of the right foot extremity to rule out underlying osteomyelitis after gouty arthritis ruled out Insulin sliding scale with Accu-Chek Resume home meds Pain control PT and OT for ambulation exercises Will continue to follow Total time spent in evaluation greater than 65 minutes - Advance Directives Does patient have a Living Will: No Does patient have a Durable POA for Healthcare: No Time Spent Managing Pts Care (In Minutes): 65
[2024-07-24] MEDS ORDERED: ACETAMINOPHEN 500 MG TAB PO PRN (22:27)
[2024-07-24] MEDS ORDERED: ONDANSETRON 4 MG/2 ML VIAL IV PRN (22:27)
[2024-07-24] MEDS ORDERED: ALBUTEROL 2.5 MG/3 ML NEB SOL NEB PRN (22:27)
[2024-07-24] MEDS ORDERED: MORPHINE 2 MG/ML SYR IV PRN (22:27)
[2024-07-24] MEDS ORDERED: MELATONIN 5 MG TABLET PO PRN (22:33)
[2024-07-24] MEDS ORDERED: LORAZEPAM 0.5 MG TABLET PO PRN (22:33)
[2024-07-24] MEDS ORDERED: HYDRALAZINE HCL 20 MG/ML VIAL IV PRN (22:33)
[2024-07-24] MEDS: VANCOMYCIN 1.75 GM in NA CHLORIDE 0.9% 500 ML IVPB SCH (23:00)
[2024-07-24 23:47] LABS: Uric Acid 4.2 mg/dL (2.6-6.0)
[2024-07-25] MEDS: VANCOMYCIN 500 MG/VIAL ONE (00:55)
[2024-07-25] MEDS: VANCOMYCIN 1 GM/VIAL ONE (00:55)
[2024-07-25] MEDS: NA CHLORIDE 0.9% 1,000 ML ONE (01:02)
[2024-07-25] MEDS: Ringers Lactate 1,000 ML IV SCH (01:24)
[2024-07-25] MEDS: COLCHICINE 0.6 MG TAB PO ONE (01:24)
[2024-07-25 03:07] VITALS: BMI 32.8
[2024-07-25 05:17] LABS: Absolute Lymphocytes (CBC) 1.3 K/uL (0.7-4.9); Absolute Monocytes 0.3 K/uL (0.1-1.3); Absolute Neutrophil 1.5 K/uL (1.8-8.0); Basophils % 0.7 % (0-1.3); Hematocrit 35.8 % (36.0-45.0); Hemoglobin 11.6 g/dL (12.0-15.0); Lymphocytes % 41.6 % (15.3-44.8); MCH 28.4 pg (27.0-35.0); MCHC 32.4 g/dL (32.0-36.0); MCV 87.6 fL (80-100); MPV 8.2 fL (7.6-11.3); Monocytes % 8.7 % (3.3-12.3); Platelets 130 thou/uL (152-406); RBC Red Blood Cell Count 4.09 M/uL (3.86-4.86)
[2024-07-25 05:38] LABS: AST/SGOT 14 U/L (15-37); Albumin 2.8 g/dL (3.4-5.0); Albumin/Globulin Ratio 0.7 (1.1-1.8); Alkaline Phosphatase 73 U/L (45-117); Anion Gap 8.7 mEq/L (5.0-15.0); BUN Blood Urea Nitrogen 16 mg/dL (7-18); Bicarbonate 26 mEq/L (21-32); Bilirubin Total 0.4 mg/dL (0.2-1.0); Globulin 3.8 g/dL (2.3-3.5); Glomerular Filtration Rate 101 ml/min (=/>90); Glucose Level 121 mg/dL (74-106); HDL Cholesterol 45 mg/dL (40-60); LDL Cholesterol, Calculated 30 mg/dL (<130); LDL Cholesterol,Calc NonReport 30; Potassium 3.7 mEq/L (3.5-5.1); Protein, Total 6.6 g/dL (6.4-8.2); Sodium Level 139 mEq/L (136-145)
[2024-07-25 05:41] LABS: ALT/SGPT < 14 U/L (13-56)
[2024-07-25] MEDS: INSULIN LISPRO 100 UNIT/1 ML SQ SCH (07:30)
[2024-07-25 08:00] VITALS: O2SAT 99
--- NOTE | 2024-07-25 08:18 | RAD REPORT ---
EXAMINATION: Foot Right Wo Con CLINICAL INDICATION: Female, 69 years old.Rule out osteomyelitis of right great toe TECHNIQUE: CT above extremity was performed without contrast. Reformats were performed. One or more o f the following dose reduction techniques were used: Automated exposure control, adjustment of the mA and/or kV according to patient size, and/or iterative reconstruction. Unless otherwise specified, incidental findings do not require dedicated imaging follow-up. [id number]. COMPARISON: Radiograph 07/24/2024 FINDINGS: Ulceration along the plantar aspect of the great toe at the level of the proximal phalanx. No evidenc e of underlying osteomyelitis. No acute fractures are identified. No abscess identified. There is soft tissue swelling which is nonspecific but could reflect a cellulitis. IMPRESSION: No right foot fracture or evidence of osteomyelitis. Ulceration with probable cellulitis along the pl kristin aspect of the great toe. No abscess identified.
[2024-07-25 08:43] VITALS: BP 142/62; TEMP 98.1
[2024-07-25] MEDS ORDERED: VANCOMYCIN 1 GM in NA CHLORIDE 0.9% 250 ML IVPB SCH (09:00)
[2024-07-25] MEDS ORDERED: CEFEPIME 1 GM in NA CHLORIDE 0.9% 100 ML IV SCH (09:00)
[2024-07-25] MEDS: CEFEPIME 2 GM in NA CHLORIDE 0.9% 100 ML IV SCH (09:02)
[2024-07-25] MEDS: ENOXAPARIN 40 MG/0.4 ML SQ SCH (09:02)
--- NOTE | 2024-07-25 10:15 | P.DS ---
Admission Date: 07/24/24 Discharge Date: 07/25/24 Disposition: ROUTINE DISCHARGE Discharge Condition: FAIR Reason for Admission: right foot pain - Problems (1) Pain of right great toe Status: Acute (2) Essential hypertension Status: Acute (3) DM type 2 (diabetes mellitus, type 2) Status: Acute Brief History of Present Illness: 69-year-old female with past medical history of HTN/DM type II, HLD, previous multiple bilateral toe infection s/p debridement, follows with podiatry Dr. Chaney who presented with significant pain over the right big toe of 2 days duration. Pain is worse with movement or when touched. She has chronic calluses on the sole of bilateral great toes and she has been seeing podiatry for that. On arrival in the ED vital signs were stable, afebrile, laboratory workup showed normal WBC and differentials, BMP was unremarkable. CRP was elevated at 10.7. X-ray of the bilateral feet showed soft tissue swelling but no bony destruction or fracture. Patient was hospitalized for further evaluation and management. Hospital Course: Patient placed in observation on the medical floor and started on antibiotics. Uric acid level checked was normal making gout unlikely. Patient has good pulses on the dorsum of bilateral foot. No skin opening or discharge. Patient bilateral great toe redness and tenderness likely secondary to trauma, cellulitis is unlikely. No leukocytosis and no fever. Vitals are stable. 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 Vital Signs/Physical Exam: Temp Pulse Resp BP Pulse Ox 98.1 F 65 20 142/62 H 95 07/25/24 08:00 07/25/24 08:00 07/25/24 08:00 07/25/24 08:00 07/25/24 08:00 General: Alert, In no apparent distress, Oriented x3 HEENT: Mucous membr. moist/pink Neck: Supple, JVD not distended Respiratory: Clear to auscultation bilaterally, Normal air movement Cardiovascular: No edema, Regular rate/rhythm Gastrointestinal: Normal bowel sounds, Soft and benign, Non-distended Musculoskeletal: No swelling Integumentary: Other (Erythema-sole and tip of great toe, no discharge, no cyanosis.) Neurological: Normal speech, Normal strength at 5/5 x4 extr Laboratory Data at Discharge: WBC 3.10 thou/uL (4.3-10.9) L 07/25/24 05:07 Hgb 11.6 g/dL (12.0-15.0) L D 07/25/24 05:07 Hct 35.8 % (36.0-45.0) L 07/25/24 05:07 Plt Count 130 thou/uL (152-406) L 07/25/24 05:07 PT 12.0 SECONDS (9.4-12.5) 07/24/24 20:26 INR 1.07 07/24/24 20:26 Sodium 139 mEq/L (136-145) 07/25/24 05:07 Potassium 3.7 mEq/L (3.5-5.1) 07/25/24 05:07 BUN 16 mg/dL (7-18) 07/25/24 05:07 Creatinine 0.54 mg/dL (0.55-1.02) L 07/25/24 05:07 Glucose 121 mg/dL (74-106) H 07/25/24 05:07 Uric Acid Cancelled 07/24/24 22:31 Magnesium 2.2 mg/dL (1.6-2.4) 07/24/24 20:26 Total Bilirubin 0.4 mg/dL (0.2-1.0) 07/25/24 05:07 AST 14 U/L (15-37) L 07/25/24 05:07 ALT < 14 U/L (13-56) 07/25/24 05:07 Alkaline Phosphatase 73 U/L (45-117) 07/25/24 05:07 Triglycerides 108 mg/dL (<150) 07/25/24 05:07 Cholesterol 97 mg/dL (<200) 07/25/24 05:07 HDL Cholesterol 45 mg/dL (40-60) 07/25/24 05:07 Cholesterol/HDL Ratio 2.16 07/25/24 05:07 Home Medications: Amox/Clavulanate [Augmentin 875-125 Tab] 1 each PO BID #14 tab 07/25/24 Aspirin [Adult Aspirin Regimen] 81 mg PO DAILY 07/25/24 Atorvastatin Calcium [Lipitor*] 20 mg PO DAILY 07/25/24 Doxycycline Hyclate 100 mg PO BID #14 cap 07/25/24 Esomeprazole Magnesium 40 mg PO DAILY 07/25/24 Fluticasone [Flonase 50MCG Nasal [place]*] 50 mcg BO BID 07/25/24 Insulin Aspart Protam & Aspart [Novolog Mix 70-30 Vial] See Rx Instructions .ROUTE .COMPLEX 07/25/24 Insulin Glargine,Hum.rec.anlog [Basaglar Kwikpen U-100] 100 ml SQ BID 07/25/24 Lisinopril [Zestril] 40 mg PO DAILY 07/25/24 Nystatin Powder [Mycostatin (Powder)*] 1 madeline TOP TID 07/25/24 Spironolactone [Aldactone*] 37.5 mg PO DAILY 07/25/24 New Medications: Amox/Clavulanate [Augmentin 875-125 Tab] 1 each PO BID #14 tab Doxycycline Hyclate 100 mg PO BID #14 cap Diet: ADA Activity: Ad sharif Followup: Jacey rEic MD [Primary Care Provider] - 1 Week Neno Chaney JR DPM [ASSOCIATE-ACTIVE - CAN ADMIT] - 1 Week Time spent managing pt's care (in minutes): 27
[2024-07-25] MEDS ORDERED: VANCOMYCIN 1.5 GM in NA CHLORIDE 0.9% 500 ML IVPB SCH (11:00)
[2024-07-25] MEDS ORDERED: VANCOMYCIN 1.75 GM in NA CHLORIDE 0.9% 500 ML IVPB SCH (13:00)
--- NOTE | 2024-07-26 12:02 | EKG ---
Test Date: 2024-07-24 Test Time: 20:36:17 Oral Surgery Assistant: LEI MEASUREMENT RESULTS: Intervals: Rate: 66 MD: 168 QRSD: 80 QT: 410 QTc: 429 [place]: P: 64 MD: 168 QRS: 37 T: 65 INTERPRETIVE STATEMENTS: Normal sinus rhythm Normal ECG Compared to ECG 04/27/2020 11:09:23 No significant changes Electronically Signed On 07-26-24 12:00:55 [employer]ING SALES [employer]SULT[employer] by Dariel Velarde
== END 2024-07-25 11:09 | disposition home or self-care (01) ==
LOC: ER 18:22 → ERHOLD 22:27 → 2ND 23:33
PROVIDERS: ADMIT Internal Medicine; ATTEND Internal Medicine
DX: L03.115 Cellulitis of right lower limb (principal); L84 Corns and callosities; I10 Essential (primary) hypertension; E11.9 Type 2 diabetes mellitus without complications; E78.5 Hyperlipidemia, unspecified; Z88.5 Allergy status to narcotic agent; Z88.6 Allergy status to analgesic agent; Z88.8 Allergy status to other drugs, medicaments and biological substances
CPT/HCPCS: 96365; 85025 ×2; 80048; 36415; 83735; 85610; 80061; 82947 ×2; 80076; 84550; 84443; 84484; 80053; 83880; 86140; 73700; 71045; 73630 ×2; 96375; 99285; J2543; J1650; J0692; J2405 ×2; J7120; J7040; J7030; 93005; G0378